=== PATIENT | female | born 1980 | race Caucasian/White ===

== ENCOUNTER 2016-12-30 21:13 | Emergency (ER) | payer OTHER ==
[~2016-12-30] VITALS: Ht 165.1 cm; Wt 126.1 kg
[~2016-12-30 21:13] MED LIST: HYDR-971 PO; METF500T4 PO; PRED50TA PO; VALA10005 PO
[2016-12-30 21:20] VITALS: BP 174/91
[2016-12-30 22:07] LABS: OBC FLU VALID
[2016-12-30] MEDS ORDERED: PENICILLIN G BENZATHINE LA 1,200,000 UNIT/2 ML DISP.SYRIN. IM ONE (22:45)
--- NOTE | 2016-12-30 23:17 | PHYS DOC ---
Past Medical History Past Medical History: Hypertension, Other Additional Past Medical Histor: SHINGLES Past Surgical History: Cholecystectomy, Hysterectomy, Tonsillectomy Additional Past Surgical Histo: BLADDER SLING ,EAR SX Smokin Pack Per Day Alcohol Use: None Drug Use: None Adult General Chief Complaint Chief Complaint: Congestion HPI HPI Patient is a 36 year old female who presents with fever and chills starting yesterday. She reports temperature up to 100F. She's had nasal congestion, sore throat, mild cough, shortness breath, and headache. She denies vomiting or diarrhea. She did not receive a flu shot this season. Her daughter was recently diagnosed with strep throat. She has not taken any medicine for fever today. She sees a PCP at [facility]. Review of Systems Review of Systems Constitutional: Fever and chills. Eyes: Denies change in visual acuity, redness, or eye pain. [] HENT: Denies ear pain. Reports sore throat and nasal congestion. Respiratory: Reports mild cough and shortness of breath. Cardiovascular: Denies chest pain, palpitations or edema. [] GI: Denies abdominal pain, nausea, vomiting, bloody stools or diarrhea. [] : Denies dysuria, hematuria or urinary frequency. [] Musculoskeletal: Denies back pain or joint pain. [] Integument: Denies rash or skin lesions. [] Neurologic: Denies focal weakness or sensory changes. Reports frontal headache. Endocrine: Denies polyuria or polydipsia. [] Psych: Denies anxiety or depression. [] All systems reviewed and negative unless otherwise stated in the HPI. Current Medications Current Medications Current Medications Medications (Trade) Dose Ordered Sig/Marilyn Start Time Stop Time Status Last Admin Dose Admin Penicillin G Benzathine (Bicillin L-A) 1,200,000 unit 1X ONCE 12/30/16 22:45 12/30/16 22:46 DC 12/30/16 23:08 1,200,000 UNIT Allergies Allergies Allergies Coded Allergies Type Severity Reaction Last Updated Verified Sulfa (Sulfonamide Antibiotics) Allergy Unknown hives 06/14/14 No Physical Exam Physical Exam Constitutional: Well developed, well nourished, no acute distress, non-toxic appearance. [] HENT: Normocephalic, atraumatic, bilateral external ears normal, oropharynx moist, no oral exudates, nose normal. Bilateral TMs without erythema or bulging. There is mild posterior pharyngeal erythema with tonsillar edema bilaterally. There is no peritonsillar abscess or uvular deviation. Bilateral nasal turbinates are swollen and erythematous with purulent drainage. Eyes: PERRLA, EOMI, conjunctiva normal, no discharge. [] Neck: Normal range of motion, no tenderness, supple, no stridor. No nuchal rigidity or meningeal signs. Cardiovascular: Heart rate regular rhythm, no murmur [] Lungs & Thorax: Bilateral breath sounds clear to auscultation without wheezes, rales, or rhonchi. Skin: Warm, dry, no erythema, no rash. [] Neurologic: Alert and oriented X 3, normal motor function, normal sensory function, no focal deficits noted. [] Psychologic: Affect normal, judgement normal, mood normal. [] Current Patient Data Vital Signs Vital Signs Date Time Temp Pulse Resp B/P Pulse Ox O2 Delivery O2 Flow Rate FiO2 12/30/16 21:20 98.3 125 20 94 Room Air 98.3 Lab Values Laboratory Tests Test 12/30/16 21:28 Influenza Type A Antigen Negative (NEGATIVE) Influenza Type B Antigen Negative (NEGATIVE) EKG EKG [] Radiology/Procedures Radiology/Procedures [] Course & Med Decision Making Course & Med Decision Making Pertinent Labs and Imaging studies reviewed. (See chart for details) Patient was treated with IM Bicillin LA due to strep exposure from her daughter with similar symptoms. Dragon Disclaimer Dragon Disclaimer This electronic medical record was generated, in whole or in part, using a voice recognition dictation system. Departure Departure Impression: Primary Impression: Pharyngitis Disposition: 01 HOME, SELF-CARE Condition: STABLE Referrals: UNKNOWN PCP NAME (PCP) Patient Instructions: Viral and Bacterial Pharyngitis, [id number] Additional Instructions: Your flu test was negative. Your treated with a shot of antibiotics to treat strep throat due to your positive exposure. Please continue to take Tylenol and ibuprofen for fever or pain control. Use according to package instructions. Please be sure you're drinking plenty of water to stay hydrated and getting lots of rest. Please follow-up with your primary care doctor within the next week. Return to emergency department if you have high fever not responding to medication, difficulty breathing or swallowing, or other new or concerning symptoms. Problem Qualifiers Primary Impression: Pharyngitis Pharyngitis/tonsillitis etiology: unspecified etiology Qualified Code: J02.9 - Acute pharyngitis, unspecified MOHAN JORDAN Dec 30, 2016 23:17
[2016-12-31 06:52] LABS: NEGATIVE OBC STREP NEG; POSITIVE OBC STREP POS
== END 2016-12-30 23:25 | disposition home or self-care (01) ==
LOC: ER 21:13
DX: J02.9 Acute pharyngitis, unspecified (principal); I10 Essential (primary) hypertension; F17.210 Nicotine dependence, cigarettes, uncomplicated; Z90.89 Acquired absence of other organs; Z88.2 Allergy status to sulfonamides
CPT/HCPCS: 87070; 87804; 87880; 96372; 99284; J0561

== ENCOUNTER 2017-04-19 01:39 | Emergency (ER) | payer OTHER ==
[~2017-04-19] VITALS: Ht 167.6 cm; Wt 126.1 kg
[2017-04-19 02:17] VITALS: BP 149/89
[2017-04-19] MEDS ORDERED: TRAM-48 PO (02:53)
[2017-04-19] MEDS ORDERED: IBUP-1007 PO (02:53)
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
[2017-04-19] MEDS ORDERED: traMADol 50 MG TABLET PO ONE (03:00)
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
== END 2017-04-19 03:05 | disposition home or self-care (01) ==
LOC: ER 01:39
DX: S43.401A Unspecified sprain of right shoulder joint, initial encounter (principal); I10 Essential (primary) hypertension; Z90.49 Acquired absence of other specified parts of digestive tract; Z90.710 Acquired absence of both cervix and uterus; Z88.2 Allergy status to sulfonamides; Y08.89XA Assault by other specified means, initial encounter; Y93.89 Activity, other specified; Y92.89 Other specified places as the place of occurrence of the external cause; Y99.8 Other external cause status
CPT/HCPCS: 73030; 99284

== ENCOUNTER 2018-11-16 20:34 | Emergency (ER) | payer OTHER ==
[~2018-11-16] VITALS: Ht 165.1 cm; Wt 104.3 kg
[~2018-11-16 20:34] MED LIST changes: +HYDR-3164 PO; -HYDR-971 PO; +IBUP-1007 PO; +METF500T16 PO; -METF500T4 PO; +MULT1TAB52 PO; +Pantoprazole PO; +SUCR1ORA5 PO; +TRAM-48 PO
[2018-11-16] MEDS ORDERED: ONDANSETRON PF 4 MG/2 ML VIAL. IV ONE (21:00)
[2018-11-16] MEDS ORDERED: MORPHINE SULFATE 4 MG/ML VIAL. IV ONE ×2 (21:00→22:45)
[2018-11-16 21:15] LABS: BASO # 0.1 x10^3/uL (0.0-0.2); BASO % 1 % (0-3); EOS # 0.6 x10^3/uL (0.0-0.7); EOS % 7 % (0-3); HEMOGLOBIN 15.7 g/dL (12.0-15.5); LYMPH % 34 % (24-48); MEAN CORPUSCULAR HEMOGLOBIN 30 pg (25-35); MEAN CORPUSCULAR HGB CONC 34 g/dL (31-37); MEAN CORPUSCULAR VOLUME 89 fL (79-100); MONO # 0.7 x10^3/uL (0.0-1.1); MONO % 7 % (0-9); NEUT # 4.6 x10^3uL (1.8-7.7); NEUT % 51 % (31-73); PLATELET COUNT 183 x10^3/uL (140-400); RED CELL DISTRIBUTION WIDTH 13.9 % (11.5-14.5)
[2018-11-16 21:24] LABS: CALCIUM 10.8 mg/dL (8.5-10.1); CREATININE 0.7 mg/dL (0.6-1.0); GFR 94.2; POTASSIUM 4.2 mmol/L (3.5-5.1)
[2018-11-16 21:27] LABS: PROTHROMBIN TIME PATIENT 13.4 SEC (11.7-14.0)
[2018-11-16 21:29] LABS: ALBUMIN 3.5 g/dL (3.4-5.0); DIRECT BILIRUBIN 0.1 mg/dL (0.0-0.2); TOTAL BILIRUBIN 0.5 mg/dL (0.2-1.0); TOTAL PROTEIN 7.6 g/dL (6.4-8.2)
[2018-11-16 21:33] LABS: BILIRUBIN,URINE SMALL (NEG); CLARITY,URINE CLOUDY; COLOR,URINE YELLOW; NITRITE,URINE NEGATIVE (NEG); PH,URINE 5.5; PROTEIN,URINE NEGATIVE (NEG-TRACE)
[2018-11-16] MEDS ORDERED: CONTRAST GIVEN. MC PRN (21:45)
[2018-11-16] MEDS ORDERED: IOHEXOL 300 MG/ML 100ML VIAL. IV ONE (21:45)
[2018-11-16 21:50] LABS: FECAL OB PT NEGATIVE (NEG)
[2018-11-16 21:51] LABS: BACTERIA,URINE MANY /HPF (0-FEW); RBC,URINE 0 /HPF (0-2); SQUAMOUS EPITHELIAL CELL,UR MANY /LPF
--- NOTE | 2018-11-16 22:00 | PHYS DOC ---
Past Medical History Past Medical History: Other Additional Past Medical Histor: OBESITY Past Surgical History: Cholecystectomy, Gastric Bypass, Hysterectomy, Other Additional Past Surgical Histo: RIGHT ROTATOR CUFF, EAR Alcohol Use: None Drug Use: None Adult General Chief Complaint Chief Complaint: RECTAL BLEED HPI HPI Patient is a 38 year old female who presents with abdominal pain. Patient states she has been sick for the last 3 days. She had onset of generalized abdominal pain along with some diarrhea and vomiting. She states she also noticed some red blood in her diarrhea. She has been unable to keep down any food or fluids over the last 3 days. Pain is diffuse across the abdomen. Pain is not severe. She denies fever. Denies urinary symptoms. Denies vaginal symptoms. The patient had previously been admitted to this hospital for what she describes to be bleeding ulcers. She denies any follow-up after that visit. She states it was last year. Patient is s/p gastric bypass surgery. Review of Systems Review of Systems Constitutional: Denies fever or chills Eyes: Denies change in visual acuity HENT: Denies nasal congestion Respiratory: Denies cough or shortness of breath Cardiovascular: No additional information not addressed in HPI GI: as documented above : Denies dysuria or hematuria Musculoskeletal: Denies back pain Integument: Denies rash or skin lesions Neurologic: Denies headache Endocrine: Denies polyuria All other systems were reviewed and found to be within normal limits, except as documented in this note. Current Medications Current Medications Current Medications Medications (Trade) Dose Ordered Sig/Marilyn Start Time Stop Time Status Last Admin Dose Admin Info (CONTRAST GIVEN -- Rx MONITORING) 1 each PRN DAILY PRN 11/16/18 21:45 11/18/18 21:44 Iohexol (Omnipaque 300 Mg/ml) 75 ml 1X ONCE 11/16/18 21:45 11/16/18 21:46 DC 11/16/18 22:02 75 ML Morphine Sulfate (Morphine Sulfate) 8 mg 1X ONCE 11/16/18 22:45 11/16/18 22:46 DC Ondansetron HCl (Zofran) 4 mg 1X ONCE 11/16/18 21:00 11/16/18 21:01 DC 11/16/18 21:16 4 MG Sodium Chloride 1,000 ml @ 1,000 mls/hr 1X ONCE 11/16/18 22:15 11/16/18 23:14 11/16/18 22:20 1,000 MLS/HR Allergies Allergies Allergies Coded Allergies Type Severity Reaction Last Updated Verified Sulfa (Sulfonamide Antibiotics) Allergy Intermediate hives 05/11/18 No Physical Exam Physical Exam Constitutional: Well developed, well nourished, no acute distress, non-toxic appearance HENT: Normocephalic, atraumatic, bilateral external ears normal, oropharynx moist Eyes: PERRLA, EOMI Neck: Normal range of motion Cardiovascular:Heart rate regular rhythm, no murmur Lungs & Thorax: Bilateral breath sounds clear to auscultation Abdomen: Bowel sounds normal, soft, mild diffuse TTP but no guarding or rebound Skin: Warm, dry, no erythema, no rash Back: No tenderness Extremities: trace edema bilateral LE's Neurologic: Alert and oriented X 3 Psychologic: Affect normal Current Patient Data Vital Signs Vital Signs Date Time Temp Pulse Resp B/P (MAP) Pulse Ox O2 Delivery O2 Flow Rate FiO2 11/16/18 21:17 16 99 Room Air 11/16/18 20:58 98.6 88 130/81 (97) 98.6 Lab Values Laboratory Tests Test 11/16/18 21:00 11/16/18 21:21 11/16/18 21:38 White Blood Count 9.0 x10^3/uL (4.0-11.0) Red Blood Count 5.20 x10^6/uL (3.50-5.40) Hemoglobin 15.7 g/dL (12.0-15.5) H Hematocrit 46.0 % (36.0-47.0) Mean Corpuscular Volume 89 fL (79-100) Mean Corpuscular Hemoglobin 30 pg (25-35) Mean Corpuscular Hemoglobin Concent 34 g/dL (31-37) Red Cell Distribution Width 13.9 % (11.5-14.5) Platelet Count 183 x10^3/uL (140-400) Neutrophils (%) (Auto) 51 % (31-73) Lymphocytes (%) (Auto) 34 % (24-48) Monocytes (%) (Auto) 7 % (0-9) Eosinophils (%) (Auto) 7 % (0-3) H Basophils (%) (Auto) 1 % (0-3) Neutrophils # (Auto) 4.6 x10^3uL (1.8-7.7) Lymphocytes # (Auto) 3.0 x10^3/uL (1.0-4.8) Monocytes # (Auto) 0.7 x10^3/uL (0.0-1.1) Eosinophils # (Auto) 0.6 x10^3/uL (0.0-0.7) Basophils # (Auto) 0.1 x10^3/uL (0.0-0.2) Prothrombin Time 13.4 SEC (11.7-14.0) Prothrombin Time INR 1.1 (0.8-1.1) PTT 34 SEC (24-38) Sodium Level 141 mmol/L (136-145) Potassium Level 4.2 mmol/L (3.5-5.1) Chloride Level 104 mmol/L (98-107) Carbon Dioxide Level 29 mmol/L (21-32) Anion Gap 8 (6-14) Blood Urea Nitrogen 14 mg/dL (7-20) Creatinine 0.7 mg/dL (0.6-1.0) Estimated GFR (Cockcroft-Gault) 94.2 Glucose Level 84 mg/dL (70-99) Calcium Level 10.8 mg/dL (8.5-10.1) H Total Bilirubin 0.5 mg/dL (0.2-1.0) Direct Bilirubin 0.1 mg/dL (0.0-0.2) Aspartate Amino Transferase (AST) 15 U/L (15-37) Alanine Aminotransferase (ALT) 16 U/L (14-59) Alkaline Phosphatase 118 U/L (46-116) H Total Protein 7.6 g/dL (6.4-8.2) Albumin 3.5 g/dL (3.4-5.0) Lipase 72 U/L (73-393) L Urine Collection Type Unknown Urine Color Yellow Urine Clarity Cloudy Urine pH 5.5 Urine Specific Majestic >=1.030 Urine Protein Negative mg/dL (NEG-TRACE) Urine Glucose (UA) Negative mg/dL (NEG) Urine Ketones (Stick) Negative mg/dL (NEG) Urine Blood Negative (NEG) Urine Nitrite Negative (NEG) Urine Bilirubin Small (NEG) Urine Urobilinogen Dipstick 1.0 mg/dL (0.2 mg/dL) Urine Leukocyte Esterase Negative (NEG) Urine RBC 0 /HPF (0-2) Urine WBC 1-4 /HPF (0-4) Urine Squamous Epithelial Cells Many /LPF Urine Bacteria Many /HPF (0-FEW) Urine Mucus Marked /LPF Stool Occult Blood Negative (NEG) Laboratory Tests 11/16/18 21:00 Laboratory Tests 11/16/18 21:00 EKG EKG [] Radiology/Procedures Radiology/Procedures FINDINGS: Lower thorax: Right lung base pulmonary nodule is identified. Measures 15 mm, appears grossly similar to the previous exam. Liver: Unremarkable Spleen: Unremarkable Pancreas: Unremarkable Adrenals: No evidence of mass. Kidneys: No focal lesion. Symmetric enhancement. Urinary tracts: Tiny nonobstructive right lower pole renal calculus similar to prior. Gallbladder: Surgically absent. Lymph nodes: No significant enlargement Vessels: Aorta is nonaneurysmal. GI tract: Postsurgical changes at the stomach. No bowel obstruction. No evidence of acute colitis. Appendix is normal. Reproductive organs:No evidence of mass. Urinary bladder: Not adequately distended for evaluation. Peritoneum: No evidence of pneumoperitoneum. No free fluid. Abdominal wall: Fat-containing left anterior abdominal wall hernia is again seen. Stranding of the fat is also again seen. Spine: Vertebral body height and alignment are intact. Bones: No destructive process identified. External Soft Tissue: No acute findings. IMPRESSION: 1. Right lung base pulmonary nodule is stable. 2. Fat-containing left anterior abdominal wall hernia is stable. 3. No acute findings are identified in the abdomen and pelvis. Course & Med Decision Making Course & Med Decision Making Pertinent Labs and Imaging studies reviewed. (See chart for details) Patient is evaluated immediately on arrival to her room. She has physical exam and complaints documented above. She is status post gastric bypass surgery. Standard abdominal pain workup is ordered including CT scan and labs and urinalysis. Medications ordered for pain and nausea. 22:45: Patient evaluated for vomiting and diarrhea. She does report bloody diarrhea but her fecal occult blood test is negative. Her vital signs are normal. She did receive 2 doses of morphine in the emergency department for pain control. Her hemoglobin was mildly elevated. The patient was given 1 L of normal saline. Plan is for discharge home and the patient is agreeable. She is provided pain medication to use at home as well as medications for nausea. Patient is accompanied by her significant other who is driving her home this evening. She is advised to follow-up with her primary care doctor. Otherwise, return to the ER for any new or worsening symptoms. Her CT scan did not reveal any acute findings. Her lab panel also was free from acute or emergent findings. Lai Disclaimer Lai Disclaimer This electronic medical record was generated, in whole or in part, using a voice recognition dictation system. Departure Departure Disposition: HOME, SELF-CARE Condition: GOOD Referrals: UNKNOWN PCP NAME (PCP) Scripts Ondansetron (ONDANSETRON ODT) 4 Mg Tab.rapdis 4 MG PO BID PRN for NAUSEA/VOMITING, #10 TAB Prov: JENNIFER TRUJILLO DO 11/16/18 Hydrocodone/Apap 5-325 (NORCO 5-325 TABLET) 1 Each Tablet 1-2 EACH PO PRN Q6HRS PRN for SEVERE PAIN, #15 as needed for pain Prov: JENNIFER TRUJILLO DO 11/16/18 JENNIFER TRUJILLO DO Nov 16, 2018 22:00
[2018-11-16] MEDS ORDERED: IV NORMAL SALINE 1000ML BAG 1,000 ML IV ONE (22:15)
--- NOTE | 2018-11-16 22:18 | RAD ---
CT ABD PELV W/ IV CONTRST ONLY Indication: s/p gastric bypass;abd pain, gi bleeding, rectal bleed x 3 days; Omni 300, 75ml Exposure: One or more of the following individualized dose reduction techniques were utilized for this examination: 1. Automated exposure control 2. Adjustment of the mA and/or kV according to patient size 3. Use of iterative reconstruction technique. Comparison: May 10, 2018 Contrast: Intravenous contrast was given. No oral contrast per request. FINDINGS: Lower thorax: Right lung base pulmonary nodule is identified. Measures 15 mm, appears grossly similar to the previous exam. Liver: Unremarkable Spleen: Unremarkable Pancreas: Unremarkable Adrenals: No evidence of mass. Kidneys: No focal lesion. Symmetric enhancement. Urinary tracts: Tiny nonobstructive right lower pole renal calculus similar to prior. Gallbladder: Surgically absent. Lymph nodes: No significant enlargement Vessels: Aorta is nonaneurysmal. GI tract: Postsurgical changes at the stomach. No bowel obstruction. No evidence of acute colitis. Appendix is normal. Reproductive organs:No evidence of mass. Urinary bladder: Not adequately distended for evaluation. Peritoneum: No evidence of pneumoperitoneum. No free fluid. Abdominal wall: Fat-containing left anterior abdominal wall hernia is again seen. Stranding of the fat is also again seen. Spine: Vertebral body height and alignment are intact. Bones: No destructive process identified. External Soft Tissue: No acute findings. IMPRESSION: 1. Right lung base pulmonary nodule is stable. 2. Fat-containing left anterior abdominal wall hernia is stable. 3. No acute findings are identified in the abdomen and pelvis. Electronically signed by: Dorian Crockett MD (11/16/2018 10:14 PM) [id number]
[2018-11-16] MEDS ORDERED: ONDA4TAB12 PO (22:54)
[2018-11-16] MEDS ORDERED: HYDR-3164 PO (22:54)
[2018-11-16 23:14] VITALS: BP 112/63
== END 2018-11-16 23:25 | disposition home or self-care (01) ==
LOC: ER 20:34
DX: K43.9 Ventral hernia without obstruction or gangrene (principal); R19.7 Diarrhea, unspecified; R11.10 Vomiting, unspecified; Z90.49 Acquired absence of other specified parts of digestive tract; Z90.710 Acquired absence of both cervix and uterus; Z98.84 Bariatric surgery status; E66.9 Obesity, unspecified; Z68.38 Body mass index [BMI] 38.0-38.9, adult; Z88.2 Allergy status to sulfonamides
CPT/HCPCS: 36415; 74177; 80048; 80076; 81001; 82274; 83690; 85025; 85610; 85730; 96361; 96374; 96375; 96376; 99284; J2270; J2405; J7030; Q9967

== ENCOUNTER 2018-11-24 17:59 | Emergency (ER) | payer OTHER ==
[~2018-11-24] VITALS: Ht 165.1 cm; Wt 107.5 kg
[~2018-11-24 17:59] MED LIST changes: +ONDA4TAB12 PO
[2018-11-24] MEDS ORDERED: ONDANSETRON PF 4 MG/2 ML VIAL. IV ONE (18:30)
[2018-11-24] MEDS ORDERED: IV NORMAL SALINE 1000ML BAG 1,000 ML IV ONE (18:30)
[2018-11-24] MEDS ORDERED: MORPHINE SULFATE 4 MG/ML VIAL. IV ONE (18:30)
[2018-11-24 18:39] LABS: BILIRUBIN,URINE NEGATIVE (NEG); CLARITY,URINE CLEAR; COLOR,URINE YELLOW; NITRITE,URINE NEGATIVE (NEG); PROTEIN,URINE NEGATIVE (NEG-TRACE)
[2018-11-24 18:43] LABS: BASO # 0.1 x10^3/uL (0.0-0.2); BASO % 1 % (0-3); EOS # 0.6 x10^3/uL (0.0-0.7); EOS % 6 % (0-3); HEMATOCRIT 47.1 % (36.0-47.0); HEMOGLOBIN 15.1 g/dL (12.0-15.5); LYMPH # 2.8 x10^3/uL (1.0-4.8); LYMPH % 32 % (24-48); MEAN CORPUSCULAR HEMOGLOBIN 28 pg (25-35); MEAN CORPUSCULAR HGB CONC 32 g/dL (31-37); MEAN CORPUSCULAR VOLUME 89 fL (79-100); MONO # 0.6 x10^3/uL (0.0-1.1); MONO % 6 % (0-9); NEUT # 4.8 x10^3uL (1.8-7.7); NEUT % 54 % (31-73); PLATELET COUNT 169 x10^3/uL (140-400); RED BLOOD COUNT 5.32 x10^6/uL (3.50-5.40); RED CELL DISTRIBUTION WIDTH 14.1 % (11.5-14.5); WHITE BLOOD COUNT 8.9 x10^3/uL (4.0-11.0)
[2018-11-24 18:45] LABS: BACTERIA,URINE 0 /HPF (0-FEW); RBC,URINE 0 /HPF (0-2); SQUAMOUS EPITHELIAL CELL,UR FEW /LPF; WBC,URINE 0 /HPF (0-4)
[2018-11-24] MEDS ORDERED: IOHEXOL 300 MG/ML 100ML VIAL. IV ONE (18:45)
[2018-11-24] MEDS ORDERED: CONTRAST GIVEN. MC PRN (18:45)
[2018-11-24 18:51] LABS: CALCIUM 9.9 mg/dL (8.5-10.1); CREATININE 0.7 mg/dL (0.6-1.0); GFR 94.2; POTASSIUM 4.6 mmol/L (3.5-5.1)
[2018-11-24 18:57] LABS: ALBUMIN 3.6 g/dL (3.4-5.0); ALBUMIN/GLOBULIN RATIO 1.1 (1.0-1.7); TOTAL BILIRUBIN 0.4 mg/dL (0.2-1.0); TOTAL PROTEIN 6.8 g/dL (6.4-8.2)
--- NOTE | 2018-11-24 20:05 | PHYS DOC ---
Past Medical History Past Medical History: Other Additional Past Medical Histor: OBESITY Past Surgical History: Cholecystectomy, Gastric Bypass, Hysterectomy, Other Additional Past Surgical Histo: RIGHT ROTATOR CUFF, EAR Alcohol Use: None Drug Use: None Adult General Chief Complaint Chief Complaint: NAUSEA/VOMITING/DIARRHA HPI HPI Patient is a 38 year old female who presents to the emergency room with complaints of nausea, vomiting, diarrhea, and left-sided abdominal pain for the last 2 weeks. Patient states she was seen here week and half ago and diagnosed with gastritis. Patient states in the last 24-hour she has 3 episodes of vomiting and 2 episodes of diarrhea. She states that she has been unable to keep any food or fluids down for over 2 weeks. Patient states now when she vomits there is bright red blood in the vomit. She reports a history of bleeding ulcers. Patient denies any blood in her diarrhea since she was last seen. Her last bowel movement was approximately one month ago. Today she feels short of breath and dizzy with position changes. She denies any irregular vaginal discharge, dysuria, vaginal bleeding, or increased urinary frequency. Patient states she had a gastric bypass 1 year ago and she is unable to see the surgeon who performed the procedure because he no longer accepts her insurance. Currently she reports her pain as 8 out of 10 on the pain scale, nothing relieves or provokes her pain. Review of Systems Review of Systems Constitutional: Denies fever or chills [] Eyes: Denies redness, or eye pain [] HENT: Denies nasal congestion or sore throat [] Respiratory: Denies cough; see HPI Cardiovascular: No additional information not addressed in HPI [] GI: See HPI : Denies dysuria or hematuria [] Musculoskeletal: Denies back pain Integument: Denies rash or skin lesions [] Neurologic: Denies headache, focal weakness or sensory changes [] Current Medications Current Medications Current Medications Medications (Trade) Dose Ordered Sig/Marilyn Start Time Stop Time Status Last Admin Dose Admin Info (CONTRAST GIVEN -- Rx MONITORING) 1 each PRN DAILY PRN 11/24/18 18:45 11/24/18 21:41 DC Iohexol (Omnipaque 300 Mg/ml) 100 ml STK-MED ONCE 11/24/18 23:01 11/24/18 23:03 DC Morphine Sulfate (Morphine Sulfate) 10 mg 1X ONCE 11/24/18 21:15 11/24/18 21:16 DC 11/24/18 21:08 10 MG Ondansetron HCl (Zofran) 4 mg 1X ONCE 11/24/18 18:30 11/24/18 18:31 DC 11/24/18 18:48 4 MG Sodium Chloride 1,000 ml @ 1,000 mls/hr 1X ONCE 11/24/18 18:30 11/24/18 19:29 DC 11/24/18 18:47 1,000 MLS/HR Allergies Allergies Allergies Coded Allergies Type Severity Reaction Last Updated Verified Sulfa (Sulfonamide Antibiotics) Allergy Intermediate hives 05/11/18 No Physical Exam Physical Exam Constitutional: Well developed, well nourished, no acute distress, non-toxic appearance. [] HENT: Normocephalic, atraumatic, bilateral external ears normal, oropharynx moist, dry lips noted, nose normal. [] Eyes: conjunctiva normal, no discharge. [] Neck: Normal range of motion Cardiovascular:Heart rate regular rhythm, no murmur [] Lungs & Thorax: Bilateral breath sounds clear to auscultation [] Abdomen: Bowel sounds normal, soft, no masses, no pulsatile masses, mild diffuse tenderness to palpation without guarding or rebound . [] Skin: Warm, dry, no erythema, no rash. [] Extremities: No tenderness, no cyanosis, no clubbing, ROM intact, no edema. [] Neurologic: Alert and oriented X 3, normal motor function, normal sensory function, no focal deficits noted. [] Psychologic: Affect normal, judgement normal, mood normal. [] Current Patient Data Vital Signs Vital Signs Date Time Temp Pulse Resp B/P (MAP) Pulse Ox O2 Delivery O2 Flow Rate FiO2 11/24/18 20:52 64 16 127/77 (94) 98 Room Air 11/24/18 18:07 97.9 97.9 Lab Values Laboratory Tests Test 11/24/18 18:07 11/24/18 18:30 Urine Collection Type Unknown Urine Color Yellow Urine Clarity Clear Urine pH 8.0 Urine Specific [place] 1.015 Urine Protein Negative mg/dL (NEG-TRACE) Urine Glucose (UA) Negative mg/dL (NEG) Urine Ketones (Stick) Negative mg/dL (NEG) Urine Blood Negative (NEG) Urine Nitrite Negative (NEG) Urine Bilirubin Negative (NEG) Urine Urobilinogen Dipstick 1.0 mg/dL (0.2 mg/dL) Urine Leukocyte Esterase Negative (NEG) Urine RBC 0 /HPF (0-2) Urine WBC 0 /HPF (0-4) Urine Squamous Epithelial Cells Few /LPF Urine Bacteria 0 /HPF (0-FEW) White Blood Count 8.9 x10^3/uL (4.0-11.0) Red Blood Count 5.32 x10^6/uL (3.50-5.40) Hemoglobin 15.1 g/dL (12.0-15.5) Hematocrit 47.1 % (36.0-47.0) H Mean Corpuscular Volume 89 fL (79-100) Mean Corpuscular Hemoglobin 28 pg (25-35) Mean Corpuscular Hemoglobin Concent 32 g/dL (31-37) Red Cell Distribution Width 14.1 % (11.5-14.5) Platelet Count 169 x10^3/uL (140-400) Neutrophils (%) (Auto) 54 % (31-73) Lymphocytes (%) (Auto) 32 % (24-48) Monocytes (%) (Auto) 6 % (0-9) Eosinophils (%) (Auto) 6 % (0-3) H Basophils (%) (Auto) 1 % (0-3) Neutrophils # (Auto) 4.8 x10^3uL (1.8-7.7) Lymphocytes # (Auto) 2.8 x10^3/uL (1.0-4.8) Monocytes # (Auto) 0.6 x10^3/uL (0.0-1.1) Eosinophils # (Auto) 0.6 x10^3/uL (0.0-0.7) Basophils # (Auto) 0.1 x10^3/uL (0.0-0.2) Sodium Level 143 mmol/L (136-145) Potassium Level 4.6 mmol/L (3.5-5.1) Chloride Level 104 mmol/L (98-107) Carbon Dioxide Level 29 mmol/L (21-32) Anion Gap 10 (6-14) Blood Urea Nitrogen 14 mg/dL (7-20) Creatinine 0.7 mg/dL (0.6-1.0) Estimated GFR (Cockcroft-Gault) 94.2 BUN/Creatinine Ratio 20 (6-20) Glucose Level 74 mg/dL (70-99) Calcium Level 9.9 mg/dL (8.5-10.1) Total Bilirubin 0.4 mg/dL (0.2-1.0) Aspartate Amino Transferase (AST) 13 U/L (15-37) L Alanine Aminotransferase (ALT) 15 U/L (14-59) Alkaline Phosphatase 110 U/L (46-116) Total Protein 6.8 g/dL (6.4-8.2) Albumin 3.6 g/dL (3.4-5.0) Albumin/Globulin Ratio 1.1 (1.0-1.7) Lipase 88 U/L (73-393) Laboratory Tests 11/24/18 18:30 Laboratory Tests 11/24/18 18:30 EKG EKG [] Radiology/Procedures Radiology/Procedures PROCEDURE: CT ABD PELV W/ IV CONTRST ONLY Examination: CT ABD PELV W/ IV CONTRST ONLY History: ABD PAIN;N/V/D X 2 WEEKS;HX GASTRIC BYPASS;BLOODY EMESIS; OMNI 300, 75ML Comparison/Correlation: 11/16/2018 CT abdomen and pelvis with IV contrast Findings: Axial images of the abdomen and pelvis were obtained following IV contrast. Sagittal and coronal reformatted images provided. Right basilar juxtadiaphragmatic ill-defined nodular infiltrate measuring up to 1.5 cm diameter has remained stable compared to prior exams including CT abdomen and pelvis without contrast 09/03/2015. Liver is overall unremarkable. No suspicious focal finding. Cholecystectomy evident. Spleen is normal. Pancreas is unremarkable. Adrenal glands are normal. Kidneys are unremarkable. Moderate quantity of stool in the colon. No bowel obstruction. Mild diverticulosis of the colon is questioned. Uterus is not identified. Postoperative findings gastric bypass noted. Suture material is present involving the left upper quadrant small bowel. No extraluminal gas. Left lower abdominal paramedian midline ventral hernia defect measuring 1.3 cm transverse is present containing omental fat. High density of the omental fat is noted but mild. Appendix is normal. Urinary bladder is unremarkable. Impression: Left lower quadrant abdominal wall hernia defect containing omental fat. Omental fat is of somewhat high density and this may represent underlying ischemia or inflammation. No bowel obstruction. [] Course & Med Decision Making Course & Med Decision Making Pertinent Labs and Imaging studies reviewed. (See chart for details) DX: Nonspecific left abdominal pain Pt asymptomatic with orthostatic BPs, labs are unremarkable, CT negative for any acute findings. Recommend follow up with Dr. Beaver for further evaluation and treatment, return to ER if symptoms worsen. Increase clear fluids recommend bland foods. RX for hydrocodone 5/325 mg tabs #10 Discussed patient and findings with Dr. Mccormick prior to discharge instructions being written. [] Dragon Disclaimer Dragon Disclaimer This electronic medical record was generated, in whole or in part, using a voice recognition dictation system. Departure Departure Impression: Primary Impression: Abdominal pain Disposition: HOME, SELF-CARE Condition: STABLE Referrals: UNKNOWN PCP NAME (PCP) THEODORA BEAVER MD Patient Instructions: Abdominal Pain (Nonspecific) Additional Instructions: Fill prescriptions and use them as directed. Recommend clear fluids for the next 24 hours. Then you may advance to bland foods such as bananas, rice, applesauce, and dry toast. Follow-up with your primary care doctor as planned and gastroenterology. Return to the emergency room if your symptoms worsen. Scripts Hydrocodone Bit/Acetaminophen (HYDROCODONE-APAP 5-325 ) 1 Tab Tablet 1 TAB PO PRN Q6HRS PRN for PAIN for 3 Days, #12 TAB 0 Refills Prov: SABA BARRERA MINING SPECULATOR 11/24/18 Problem Qualifiers Primary Impression: Abdominal pain Abdominal location: generalized Qualified Codes: R10.84 - Generalized abdominal pain SABA BARRERA MINING SPECULATOR Nov 24, 2018 20:04
--- NOTE | 2018-11-24 20:25 | RAD ---
Examination: CT ABD PELV W/ IV CONTRST ONLY History: ABD PAIN;N/V/D X 2 WEEKS;HX GASTRIC BYPASS;BLOODY EMESIS; OMNI 300, 75ML Comparison/Correlation: 11/16/2018 CT abdomen and pelvis with IV contrast Findings: Axial images of the abdomen and pelvis were obtained following IV contrast. Sagittal and coronal reformatted images provided. Right basilar juxtadiaphragmatic ill-defined nodular infiltrate measuring up to 1.5 cm diameter has remained stable compared to prior exams including CT abdomen and pelvis without contrast 09/03/2015. Liver is overall unremarkable. No suspicious focal finding. Cholecystectomy evident. Spleen is normal. Pancreas is unremarkable. Adrenal glands are normal. Kidneys are unremarkable. Moderate quantity of stool in the colon. No bowel obstruction. Mild diverticulosis of the colon is questioned. Uterus is not identified. Postoperative findings gastric bypass noted. Suture material is present involving the left upper quadrant small bowel. No extraluminal gas. Left lower abdominal paramedian midline ventral hernia defect measuring 1.3 cm transverse is present containing omental fat. High density of the omental fat is noted but mild. Appendix is normal. Urinary bladder is unremarkable. Impression: Left lower quadrant abdominal wall hernia defect containing omental fat. Omental fat is of somewhat high density and this may represent underlying ischemia or inflammation. No bowel obstruction. Electronically signed by: Wiley Najera MD (11/24/2018 8:20 PM) [facility]
[2018-11-24 20:52] VITALS: BP 127/77
[2018-11-24] MEDS ORDERED: MORPHINE SULFATE 4 MG/ML VIAL. IM ONE (21:00)
[2018-11-24] MEDS ORDERED: MORPHINE SULFATE 10 MG/ML VIAL. IM ONE (21:15)
[2018-11-24] MEDS ORDERED: HYDR-2761 PO (21:33)
[2018-11-24] MEDS ORDERED: IOHEXOL 300 MG/ML 100ML VIAL. ONE (23:01)
== END 2018-11-24 21:35 | disposition home or self-care (01) ==
LOC: ER 17:59
DX: R10.84 Generalized abdominal pain (principal); R11.2 Nausea with vomiting, unspecified; R19.7 Diarrhea, unspecified; R42 Dizziness and giddiness; Z98.84 Bariatric surgery status; Z90.49 Acquired absence of other specified parts of digestive tract; Z90.710 Acquired absence of both cervix and uterus; Z88.2 Allergy status to sulfonamides
CPT/HCPCS: 36415; 74177; 80053; 81001; 83690; 85025; 96372; 96374; 96375; 99284; J2270; J2405; J7030; Q9967

== ENCOUNTER 2019-02-22 17:56 | Emergency (ER) | payer OTHER ==
[~2019-02-22] VITALS: Ht 165.1 cm; Wt 102.1 kg
[~2019-02-22 17:56] MED LIST changes: +HYDR-2761 PO
[2019-02-22] MEDS ORDERED: HYDROcodone/APAP 5/325MG 1 TAB TABLET PO ONE (19:00)
[2019-02-22] MEDS ORDERED: LIDO:MAALOX 1:1 20 ML SINGLE DOSE. SWSW ONE (19:00)
[2019-02-22] MEDS ORDERED: FAMOTIDINE 20 MG/2 ML VIAL IVP ONE (19:00)
[2019-02-22 19:05] LABS: BASO % 1 % (0-3); EOS # 0.5 x10^3/uL (0.0-0.7); EOS % 5 % (0-3); HEMATOCRIT 48.2 % (36.0-47.0); HEMOGLOBIN 15.7 g/dL (12.0-15.5); LYMPH # 2.6 x10^3/uL (1.0-4.8); LYMPH % 27 % (24-48); MEAN CORPUSCULAR HEMOGLOBIN 28 pg (25-35); MEAN CORPUSCULAR HGB CONC 33 g/dL (31-37); MEAN CORPUSCULAR VOLUME 87 fL (79-100); MONO # 0.6 x10^3/uL (0.0-1.1); MONO % 6 % (0-9); NEUT # 5.9 x10^3uL (1.8-7.7); NEUT % 61 % (31-73); PLATELET COUNT 195 x10^3/uL (140-400); RED BLOOD COUNT 5.55 x10^6/uL (3.50-5.40); RED CELL DISTRIBUTION WIDTH 14.6 % (11.5-14.5); WHITE BLOOD COUNT 9.7 x10^3/uL (4.0-11.0)
[2019-02-22 19:11] LABS: FECAL OB PT NEGATIVE (NEG)
[2019-02-22 19:15] LABS: CALCIUM 10.3 mg/dL (8.5-10.1); CREATININE 0.7 mg/dL (0.6-1.0); GFR 93.6; POTASSIUM 4.5 mmol/L (3.5-5.1)
[2019-02-22 19:21] LABS: ALBUMIN 3.7 g/dL (3.4-5.0); ALBUMIN/GLOBULIN RATIO 0.9 (1.0-1.7); TOTAL BILIRUBIN 0.4 mg/dL (0.2-1.0); TOTAL PROTEIN 7.6 g/dL (6.4-8.2)
--- NOTE | 2019-02-22 19:30 | PHYS DOC ---
Past Medical History Past Medical History: GI Bleed, Other Additional Past Medical Histor: OBESITY Past Surgical History: Cholecystectomy, Gastric Bypass, Hysterectomy, Other Additional Past Surgical Histo: RIGHT ROTATOR CUFF, EAR Alcohol Use: None Drug Use: None Adult General Chief Complaint Chief Complaint: CHEST PAIN [facility] HPI Patient is a 39 year old female who presents with 3 days of epigastric pain with radiating shooting pain to her left chest. The pain has progressively increased for the last three days and today she began to feel lightheaded and dizzy. Currently, the pain is 7/10. She was concerned she was going to pass out. She denies sensation of clamminess or sweating. She reports that she has a history of bleeding gastric and small intestinal ulcers and is suffering hematemesis and hematochezia. She reports the blood per rectum surrounds and is within her stool as well as red blood within the toilet. She denies black tarry stools. She reports the hematemesis is bright red but in a small amount. She reports that the pain increases with deep breaths and nothing alleviates the pain. She reports a cholecystectomy but maintains her appendix. Her last food intake was at 17:30 02/22/19. She denies SOB, radiating pain down her arm or into jaw, subjective fevers, and chills. She denies kidney problems, but reports that her uncle was on dialysis for a non-diabetic concern.[] Review of Systems Review of Systems Constitutional: Denies fever or chills [] Eyes: Denies change in visual acuity, redness, or eye pain [] HENT: Denies nasal congestion or sore throat [] Respiratory: Denies cough or shortness of breath [] Cardiovascular: No additional information not addressed in HPI [] GI: Reports epigastric pain with shooting pain to L-chest with hematemesis and hematochezia.[] : Denies dysuria or hematuria [] Musculoskeletal: Denies back pain or joint pain [] Integument: Denies rash or skin lesions [] Neurologic: Denies headache, focal weakness or sensory changes [] Endocrine: Denies polyuria or polydipsia [] All other systems were reviewed and found to be within normal limits, except as documented in this note. Current Medications Current Medications Current Medications Medications (Trade) Dose Ordered Sig/Marilyn Start Time Stop Time Status Last Admin Dose Admin Acetaminophen/ Hydrocodone Bitart (Lortab 5/325) 2 tab 1X ONCE 02/22/19 19:00 02/22/19 19:01 DC 02/22/19 20:34 2 TAB Famotidine (Pepcid Vial) 20 mg 1X ONCE 02/22/19 19:00 02/22/19 19:01 DC 02/22/19 20:34 20 MG Iohexol (Omnipaque 300 Mg/ml) 75 ml 1X ONCE 02/22/19 20:45 02/22/19 20:46 DC 02/22/19 20:43 75 ML Multi-Ingredient Mouthwash/Gargle (Gi Cocktail) 20 ml 1X ONCE 02/22/19 19:00 02/22/19 19:01 DC 02/22/19 20:33 20 ML Allergies Allergies Allergies Coded Allergies Type Severity Reaction Last Updated Verified Sulfa (Sulfonamide Antibiotics) Allergy Intermediate hives 05/11/18 No Physical Exam Physical Exam Constitutional: Well developed, well nourished, no acute distress, non-toxic appearance. [] HENT: Normocephalic, atraumatic, bilateral external ears normal, oropharynx moist, no oral exudates, nose normal. [] Eyes: PERRLA, EOMI, conjunctiva normal, no discharge. [] Neck: Normal range of motion, no tenderness, supple, no stridor. [] Cardiovascular:Heart rate regular rhythm, no murmur, rubs, gallops [] Lungs & Thorax: Bilateral breath sounds clear to auscultation, no wheezes, rales, crackles [] Abdomen: bowel sounds normal, soft, epigastric and RUQ tenderness, no masses, no pulsatile masses. Rectal exam demonstrated brown stool, no observed blood. [] Skin: Warm, dry, no erythema, no rash. [] Back: R-sided tenderness to palpation T6-T10. [] Extremities: No tenderness, no cyanosis, no clubbing, ROM intact, no edema. [] Neurologic: Alert and oriented X 3, normal motor function, normal sensory function, no focal deficits noted. [] Psychologic: Affect normal, judgement normal, mood normal. [] Current Patient Data Vital Signs Vital Signs Date Time Temp Pulse Resp B/P (MAP) Pulse Ox O2 Delivery O2 Flow Rate FiO2 02/22/19 22:00 18 116/72 (87) 98 Room Air 02/22/19 19:00 87 02/22/19 18:10 98.8 98.8 Lab Values Laboratory Tests Test 02/22/19 18:17 02/22/19 18:55 White Blood Count 9.7 x10^3/uL (4.0-11.0) Red Blood Count 5.55 x10^6/uL (3.50-5.40) H Hemoglobin 15.7 g/dL (12.0-15.5) H Hematocrit 48.2 % (36.0-47.0) H Mean Corpuscular Volume 87 fL (79-100) Mean Corpuscular Hemoglobin 28 pg (25-35) Mean Corpuscular Hemoglobin Concent 33 g/dL (31-37) Red Cell Distribution Width 14.6 % (11.5-14.5) H Platelet Count 195 x10^3/uL (140-400) Neutrophils (%) (Auto) 61 % (31-73) Lymphocytes (%) (Auto) 27 % (24-48) Monocytes (%) (Auto) 6 % (0-9) Eosinophils (%) (Auto) 5 % (0-3) H Basophils (%) (Auto) 1 % (0-3) Neutrophils # (Auto) 5.9 x10^3uL (1.8-7.7) Lymphocytes # (Auto) 2.6 x10^3/uL (1.0-4.8) Monocytes # (Auto) 0.6 x10^3/uL (0.0-1.1) Eosinophils # (Auto) 0.5 x10^3/uL (0.0-0.7) Basophils # (Auto) 0.0 x10^3/uL (0.0-0.2) Maternal Serum HCG Beta Subunit < 1 mIU/mL (0-5) Sodium Level 137 mmol/L (136-145) Potassium Level 4.5 mmol/L (3.5-5.1) Chloride Level 103 mmol/L (98-107) Carbon Dioxide Level 28 mmol/L (21-32) Anion Gap 6 (6-14) Blood Urea Nitrogen 11 mg/dL (7-20) Creatinine 0.7 mg/dL (0.6-1.0) Estimated GFR (Cockcroft-Gault) 93.6 BUN/Creatinine Ratio 16 (6-20) Glucose Level 89 mg/dL (70-99) Calcium Level 10.3 mg/dL (8.5-10.1) H Total Bilirubin 0.4 mg/dL (0.2-1.0) Aspartate Amino Transferase (AST) 13 U/L (15-37) L Alanine Aminotransferase (ALT) 15 U/L (14-59) Alkaline Phosphatase 114 U/L (46-116) Troponin I Quantitative < 0.017 ng/mL (0.000-0.055) Total Protein 7.6 g/dL (6.4-8.2) Albumin 3.7 g/dL (3.4-5.0) Albumin/Globulin Ratio 0.9 (1.0-1.7) L Lipase 83 U/L (73-393) Stool Occult Blood Negative (NEG) Laboratory Tests 02/22/19 18:17 Laboratory Tests 02/22/19 18:17 EKG EKG []Normal sinus rhythm rate of 83 no acute ischemic changes noted interpreted by me time of encounter Radiology/Procedures Radiology/Procedures [] Impressions: IMPRESSION: 1. No acute abnormality is identified. There is again fat-containing left ventral hernia in the abdomen. There is again small nonobstructive right renal calculus. There are postsurgical changes of the stomach. There is stable focus of noncalcified nodularity of the right lower lobe at the lung base. Electronically signed by: Bob Gonzales MD (02/22/2019 9:08 PM) [facility] cxr neg acute my read Course & Med Decision Making Course & Med Decision Making Pertinent Labs and Imaging studies reviewed. (See chart for details) 39/F presents with three days of epigastric pain with shooting pain to L-chest, Complete ER workup revealed no acute pathology hemoglobins normal CT scan was ne gative troponin negative I suspect patient does have known peptic ulcer disease she may be having recurrent flare recommended Carafate follow-up day omeprazole pain control follow-up with GI at this point in time I think she is stable for outpatient management no evidence of active GI bleed. Dragon Disclaimer Dragon Disclaimer This electronic medical record was generated, in whole or in part, using a voice recognition dictation system. Departure Departure Impression: Primary Impression: Abdominal pain Disposition: HOME, SELF-CARE Condition: STABLE Referrals: GAUSTAD,JESSICA I FURNITURE SANDER (PCP) Scripts Hydrocodone/Apap 5-325 (NORCO 5-325 TABLET) 1 Each Tablet 1-2 EACH PO PRN Q6HRS PRN for PAIN, #15 as needed for pain Prov: MEGAN COHN MD 02/22/19 Omeprazole (OMEPRAZOLE) 40 Mg Capsule.dr 1 CAP PO DAILY, #30 CAP 0 Refills Prov: MEGAN COHN MD 02/22/19 Sucralfate (CARAFATE) 1 Gm/10 Ml Oral.susp 10 ML PO BID, #120 ML 1 Refill Prov: MEGAN COHN MD 02/22/19 MEGAN COHN MD Feb 22, 2019 19:30
[2019-02-22] MEDS ORDERED: IOHEXOL 300 MG/ML 100ML VIAL. IV ONE (20:45)
--- NOTE | 2019-02-22 21:11 | RAD ---
CT ABD PELV W/ IV CONTRST ONLY Indication: Worsening epigastric pain for 3 days, rectal bleeding, hematemesis, history of bleeding ulcers a gastric bypass Technique: Postcontrast CT imaging was performed of the abdomen pelvis, multiplanar reconstruction images submitted. No oral contrast was given. One or more of the following individualized dose reduction techniques were utilized for this examination: 1. Automated exposure control 2. Adjustment of the mA and/or kV according to patient size 3. Use of iterative reconstruction technique. Comparison: November 24, 2018 Findings: There is a focus of noncalcified nodular density of the right lower lobe at the lung base about 1.2 cm in size as seen previously. No new focal abnormality is identified of the liver, pancreas, spleen. There again has been cholecystectomy. There is no adrenal nodularity. Both kidneys enhance, no hydronephrosis. There is again about 0.3 cm right renal calculus. Accurate evaluation of bowel is limited without oral contrast. Bowel is not significantly dilated. There is no free air, free fluid, significant localized inflammatory type change about the bowel. There is again fat-containing left ventral hernia in the abdomen, neck about 1.3 cm, transverse dimension of hernia sac about 5.6 cm, no internal bowel. IMPRESSION: 1. No acute abnormality is identified. There is again fat-containing left ventral hernia in the abdomen. There is again small nonobstructive right renal calculus. There are postsurgical changes of the stomach. There is stable focus of noncalcified nodularity of the right lower lobe at the lung base. Electronically signed by: Bob Gonzales MD (02/22/2019 9:08 PM) [facility]
[2019-02-22] MEDS ORDERED: HYDR-3164 PO (21:32)
[2019-02-22] MEDS ORDERED: SUCR1ORA5 PO (21:32)
[2019-02-22] MEDS ORDERED: OMEP40CA5 PO (21:32)
[2019-02-22 22:00] VITALS: BP 116/72
--- NOTE | 2019-02-23 07:17 | EKG ---
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 RI6.01 No previous ECG available for comparison Electronically Signed On 02-28-2019 11:36:56 CDT by Dayday Bright
--- NOTE | 2019-02-23 07:58 | RAD ---
Examination: PORTABLE CHEST 1V History: CHEST PAIN IN STERNUM AREA AND LEFT SIDE OF CHEST. Comparison/Correlation: None Findings: Portable upright frontal view chest was obtained. Heart size and pulmonary vasculature are normal. No infiltrate or pleural effusion. No pneumothorax. There are 2 screws identified overlying the right bony glenoid. Impression: No active disease. Electronically signed by: Wiley Najera MD (02/23/2019 7:55 AM) [facility]
== END 2019-02-22 22:09 | disposition home or self-care (01) ==
LOC: ER 17:56
DX: R10.13 Epigastric pain (principal); R10.11 Right upper quadrant pain; R07.89 Other chest pain; K92.1 Melena; K92.0 Hematemesis; R42 Dizziness and giddiness; E66.9 Obesity, unspecified; Z68.37 Body mass index [BMI] 37.0-37.9, adult; Z90.49 Acquired absence of other specified parts of digestive tract; Z90.710 Acquired absence of both cervix and uterus; Z99.2 Dependence on renal dialysis; Z88.2 Allergy status to sulfonamides
CPT/HCPCS: 36415; 71045; 74177; 80053; 82274; 83690; 84484; 84702; 85025; 93005; 96374; 99285; J3490; Q9967

== ENCOUNTER 2019-03-16 14:00 | Inpatient (IN) | payer OTHER ==
[~2019-03-16] VITALS: Ht 170.2 cm; Wt 102.1 kg
[~2019-03-16 14:00] MED LIST changes: +OMEP40CA5 PO
[2019-03-16 14:43] LABS: BASO # 0.1 x10^3/uL (0.0-0.2); BASO % 1 % (0-3); EOS # 0.3 x10^3/uL (0.0-0.7); EOS % 4 % (0-3); HEMATOCRIT 50.6 % (36.0-47.0); HEMOGLOBIN 16.3 g/dL (12.0-15.5); LYMPH % 28 % (24-48); MEAN CORPUSCULAR HEMOGLOBIN 28 pg (25-35); MEAN CORPUSCULAR HGB CONC 32 g/dL (31-37); MEAN CORPUSCULAR VOLUME 88 fL (79-100); MONO # 0.4 x10^3/uL (0.0-1.1); MONO % 6 % (0-9); NEUT # 4.3 x10^3uL (1.8-7.7); NEUT % 60 % (31-73); PLATELET COUNT 174 x10^3/uL (140-400); RED BLOOD COUNT 5.77 x10^6/uL (3.50-5.40); RED CELL DISTRIBUTION WIDTH 14.6 % (11.5-14.5); WHITE BLOOD COUNT 7.1 x10^3/uL (4.0-11.0)
[2019-03-16 14:54] LABS: PROTHROMBIN TIME PATIENT 13.8 SEC (11.7-14.0)
--- NOTE | 2019-03-16 14:54 | RAD ---
CT of the head without contrast, 03/16/2019: HISTORY: Left-sided weakness, stroke symptoms The ventricles are within normal limits in size. There is no shift of the midline structures. There is no evidence of acute intracranial hemorrhage or mass effect. 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 IMPRESSION: No acute intracranial abnormality is detected. RS Compliance Statement: One or more of the following individualized dose reduction techniques were utilized for this examination: 1. Automated exposure control 2. Adjustment of the mA and/or kV according to patient size 3. Use of iterative reconstruction technique Electronically signed by: Caleb Foster MD (03/16/2019 2:51 PM) [facility]
[2019-03-16 15:02] LABS: CALCIUM 10.8 mg/dL (8.5-10.1); CREATININE 0.8 mg/dL (0.6-1.0); GFR 80.3; POTASSIUM 4.3 mmol/L (3.5-5.1)
[2019-03-16 15:09] LABS: ALBUMIN 3.8 g/dL (3.4-5.0); TOTAL BILIRUBIN 0.8 mg/dL (0.2-1.0); TOTAL PROTEIN 7.6 g/dL (6.4-8.2)
[2019-03-16 15:19] LABS: CREATINE KINASE 43 U/L (26-192)
--- NOTE | 2019-03-16 15:19 | EKG ---
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
--- NOTE | 2019-03-16 15:19 | RAD ---
EXAM: CHEST 1 VIEW History: Fall, weakness COMPARISON: 02/22/2019 TECHNIQUE: Single portable radiograph of the chest FINDINGS: The cardiac silhouette is unremarkable. The lungs are clear bilaterally. The costophrenic sulci are clear and well demarcated. IMPRESSION: No radiographic evidence of an acute cardiopulmonary process. Electronically signed by: Bart Rebollar MD (03/16/2019 3:16 PM) [facility]
--- NOTE | 2019-03-16 16:28 | PHYS DOC ---
Past Medical History Past Medical History: GI Bleed, Other Additional Past Medical Histor: OBESITY, ULCERS (RONAK SARABIA APRN) Past Surgical History: Cholecystectomy, Gastric Bypass, Hysterectomy, Other Additional Past Surgical Histo: RIGHT ROTATOR CUFF, EAR, BLADDER SLING (RONAK SARABIA APRN) Alcohol Use: None Drug Use: None (RONAK SARABIA APRN) Adult General Chief Complaint Chief Complaint: MECHANICAL FALL HPI HPI Patient is a 39 year old female with history of acid reflex, gastric bypass, who presents to the ED today to be evaluated after falling. It's unknown what time patient fell but has left sided weakness. Patient states she was ambulating she got dizzy and fell. Patient does not remember what time she fell or even falling. She is currently alert and oriented 3 speaking with no slurred speech. She is complaining of pain on the entire left side. When i walked in the room and the nurses were doing NIHS stroke scale because they noted patient was showing signs of weakness on the left side. I stayed in the room and completed NIHS stroke scale. Patient states her mother had similar symptoms a couple years ago and was found to have 2 strokes. Patient denies any use of alcohol or drugs. Denies any other medical problems. (RONAK SARABIA APRN) Review of Systems Review of Systems Constitutional: Denies fever or chills [] Eyes: Denies change in visual acuity, redness, or eye pain [] HENT: Denies nasal congestion or sore throat [] Respiratory: Denies cough or shortness of breath [] Cardiovascular: No additional information not addressed in HPI [] GI: Denies abdominal pain, nausea, vomiting, bloody stools or diarrhea [] : Denies dysuria or hematuria [] Musculoskeletal: Reports pain to the entire left side. Denies back pain Integument: Denies rash or skin lesions [] Neurologic: Reports dizziness, LEFT-sided weakness. Denies headache, focal weakness or sensory changes [] All other systems were reviewed and found to be within normal limits, except as documented in this note. (RONAK SARABIA APRN) Physical Exam Physical Exam Constitutional: Well developed, well nourished, no acute distress, non-toxic appearance. [] HENT: Normocephalic, atraumatic, bilateral external ears normal, oropharynx moist, no oral exudates, nose normal. [] Eyes: PERRLA, EOMI, conjunctiva normal, no discharge. [] Neck: Normal range of motion, no tenderness, supple, no stridor. [] Cardiovascular:Heart rate regular rhythm, no murmur [] Lungs & Thorax: Bilateral breath sounds clear to auscultation [] Abdomen: Bowel sounds normal, soft, no tenderness, no masses, no pulsatile masses. [] Skin: Warm, dry, no erythema, no rash. [] Back: No tenderness, no CVA tenderness. [] Extremities: No tenderness, no cyanosis, no clubbing, passive range of motion intact to the left side, no edema. [] Neurologic: .Noted weakness on the left side. Noted left-sided facial droop. Limb ataxia left side. Alert and oriented X 4, normal motor function, normal sensory function, no focal deficits noted. Cranial nerves II through XII intact Psychologic: flat affect, depressed mood almost tearful (MUTUNGA,RONAK CLAIMS SPECIALIST) Current Patient Data Vital Signs Vital Signs Date Time Temp Pulse Resp B/P (MAP) Pulse Ox O2 Delivery O2 Flow Rate FiO2 03/16/19 16:10 68 16 99 03/16/19 14:12 98.4 120/72 (88) Room Air 98.4 (JHONY LAUREANO MD) Lab Values Laboratory Tests Test 03/16/19 14:33 03/16/19 14:35 03/16/19 16:10 Glucose (Fingerstick) 79 mg/dL (70-99) White Blood Count 7.1 x10^3/uL (4.0-11.0) Red Blood Count 5.77 x10^6/uL (3.50-5.40) H Hemoglobin 16.3 g/dL (12.0-15.5) H Hematocrit 50.6 % (36.0-47.0) H Mean Corpuscular Volume 88 fL (79-100) Mean Corpuscular Hemoglobin 28 pg (25-35) Mean Corpuscular Hemoglobin Concent 32 g/dL (31-37) Red Cell Distribution Width 14.6 % (11.5-14.5) H Platelet Count 174 x10^3/uL (140-400) Neutrophils (%) (Auto) 60 % (31-73) Lymphocytes (%) (Auto) 28 % (24-48) Monocytes (%) (Auto) 6 % (0-9) Eosinophils (%) (Auto) 4 % (0-3) H Basophils (%) (Auto) 1 % (0-3) Neutrophils # (Auto) 4.3 x10^3uL (1.8-7.7) Lymphocytes # (Auto) 2.0 x10^3/uL (1.0-4.8) Monocytes # (Auto) 0.4 x10^3/uL (0.0-1.1) Eosinophils # (Auto) 0.3 x10^3/uL (0.0-0.7) Basophils # (Auto) 0.1 x10^3/uL (0.0-0.2) Prothrombin Time 13.8 SEC (11.7-14.0) Prothrombin Time INR 1.1 (0.8-1.1) PTT 32 SEC (24-38) Sodium Level 141 mmol/L (136-145) Potassium Level 4.3 mmol/L (3.5-5.1) Chloride Level 105 mmol/L (98-107) Carbon Dioxide Level 27 mmol/L (21-32) Anion Gap 9 (6-14) Blood Urea Nitrogen 12 mg/dL (7-20) Creatinine 0.8 mg/dL (0.6-1.0) Estimated GFR (Cockcroft-Gault) 80.3 BUN/Creatinine Ratio 15 (6-20) Glucose Level 86 mg/dL (70-99) Calcium Level 10.8 mg/dL (8.5-10.1) H Magnesium Level 2.0 mg/dL (1.8-2.4) Total Bilirubin 0.8 mg/dL (0.2-1.0) Aspartate Amino Transferase (AST) 17 U/L (15-37) Alanine Aminotransferase (ALT) 15 U/L (14-59) Alkaline Phosphatase 123 U/L (46-116) H Creatine Kinase 43 U/L (26-192) Creatine Kinase MB (Mass) < 0.5 ng/mL (0.0-3.6) Creatine Kinase MB Relative Index % (0-4) Troponin I Quantitative < 0.017 ng/mL (0.000-0.055) OF-Mkl-D-Type Natriuretic Peptide 46 pg/mL (0-124) Total Protein 7.6 g/dL (6.4-8.2) Albumin 3.8 g/dL (3.4-5.0) Albumin/Globulin Ratio 1.0 (1.0-1.7) Thyroid Stimulating Hormone (TSH) 1.048 uIU/mL (0.358-3.74) Ethyl Alcohol Level < 10 mg/dL (0-10) Urine Opiates Screen Neg (NEG) Urine Methadone Screen Neg (NEG) Urine Barbiturates Neg (NEG) Urine Phencyclidine Screen Neg (NEG) Urine Amphetamine/Methamphetamine Neg (NEG) Urine Benzodiazepines Screen Neg (NEG) Urine Cocaine Screen Neg (NEG) Urine Cannabinoids Screen Neg (NEG) Urine Ethyl Alcohol Neg (NEG) Laboratory Tests 03/16/19 14:35 Laboratory Tests 03/16/19 14:35 (JHONY LAUREANO MD) EKG EKG 14:[address] Laureano sinus rhythm heart rate 69 no STEMI[] (RONAK SARABIA APRN) Radiology/Procedures Radiology/Procedures []PROCEDURE: PORTABLE CHEST 1V EXAM: CHEST 1 VIEW History: Fall, weakness COMPARISON: 02/22/2019 TECHNIQUE: Single portable radiograph of the chest FINDINGS: The cardiac silhouette is unremarkable. The lungs are clear bilaterally. The costophrenic sulci are clear and well demarcated. IMPRESSION: No radiographic evidence of an acute cardiopulmonary process. Electronically signed by: Bart Rebollar MD (03/16/2019 3:16 PM) [place] [id number] DICTATED and SIGNED BY: BART REBOLLAR MD DATE: 03/16/19 1516 PROCEDURE: CT CODE STROKE HEAD WO CT of the head without contrast, 03/16/2019: HISTORY: Left-sided weakness, stroke symptoms The ventricles are within normal limits in size. There is no shift of the midline structures. There is no evidence of acute intracranial hemorrhage or mass effect. 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 IMPRESSION: No acute intracranial abnormality is detected. [facility] Compliance Statement: One or more of the following individualized dose reduction techniques were utilized for this examination: 1. Automated exposure control 2. Adjustment of the mA and/or kV according to patient size 3. Use of iterative reconstruction technique Electronically signed by: Caleb Acosta MD (03/16/2019 2:51 PM) [facility] DICTATED and SIGNED BY: CALEB ACOSTA MD DATE: 03/16/19 8668 (RONAK SARABIA APRN) Course & Med Decision Making Course & Med Decision Making Pertinent Labs and Imaging studies reviewed. (See chart for details) This is a 39-year-old female patient presenting to the ED today to be evaluated after falling. It's unknown what time patient fell like she states she got dizzy and fell and her friend went to check on her and found on the ground. Patient also states she's had weakness and poor appetite for one week. Code stroke was activated. TPA was considered for this patient unfortunately we do not know the last known normal. On arrival to the ED noted patient has weakness on the left side, left-sided facial droop and Limb ataxia left side, patient does not know when the symptoms began. Stroke scale 3. Patient also states for the last 1 week she's had generalized weakness, poor appetite. CT of the head is negative. EKG is negative, chest x-ray is negative. CBC with no acute findings, CMP with calcium of 10.8. Vitals on arrival to the ED blood pressure 120/72, heart rate 86, temperature 98.4, O2 sats 97% on room air. Drug screen is negative. Spoke with Dr. Monzon she requested we do MRI brain with and without contrast. Spoke with Dr. Monzon who accepted patient for admission Sometime during her stay in the ED and went back to the room a couple times. I found patient holding her cell phone on her left hand in no distress. She appears to be holding the phone with a good protocol officer. When I started talking to her she dropped the phone intentionally. She states she still cannot feel her left side. (RONAK SARABIA APRN) Course & Med Decision Making This pt was seen by an MAISHA. I did not see or evaluate the pt unless specified above. I was available for consultation as needed. (JHONY LAUREANO MD) Dragon Disclaimer Dragon Disclaimer This electronic medical record was generated, in whole or in part, using a voice recognition dictation system. (RONAK SARABIA APRN) Departure Departure Impression: Primary Impression: Left-sided weakness Additional Impressions: Dizziness Fall from standing Disposition: ADMITTED INPATIENT Condition: STABLE Referrals: JESSICA BOLES APRN (PCP) NIHSS Stroke Scale NIH Stroke Scale: NIH Stroke Scale Response (Comments) Value Level of Consciousness: 0 Alert/Responsive 0 LOC Questions: 0 Answers both correctly 0 Best Gaze: 0 Normal 0 Visual: 0 No visual loss 0 Facial Palsy: 1 Minor paralysis 1 Motor - Left Arm 1 Drifts, but can hold 1 Motor - Right Arm 0 No drift 0 Motor - Left Leg 0 No drift 0 Motor: Right Leg 0 No drift 0 Limb Ataxia: 1 One limb 1 Best Language: 0 Normal 0 Dysathria: 0 Normal 0 Extinction and Inattention: 0 Normal 0 Total 3 Problem Qualifiers Additional Impressions: Fall from standing Encounter type: initial encounter Qualified Codes: W19.XXXA - Unspecified fall, initial encounter RONAK SARABIA APRN March 16, 2019 16:28 JOHNY LAUREANO MD March 25, 2019 18:37
[2019-03-16 16:29] LABS: BARBITURATES NEG (NEG); BENZODIAZEPINES NEG (NEG); CANNABINOIDS NEG (NEG); COCAINE NEG (NEG); METHADONE NEG (NEG); OPIATES NEG (NEG); PHENCYCLIDINE NEG (NEG)
[2019-03-16 16:35] LABS: AMPHETAMINE/METHAMPHETAMINE NEG (NEG)
[2019-03-16] MEDS ORDERED: ONDANSETRON ODT 4 MG TAB.RAPDIS. PO PRN (16:45)
[2019-03-16] MEDS ORDERED: ALBUTEROL SULFATE 2.5 MG/3 ML NEBU. NEB PRN (16:45)
[2019-03-16] MEDS ORDERED: HYDROcodone/APAP 5/325MG 1 TAB TABLET PO PRN (16:45)
[2019-03-16] MEDS ORDERED: ONDANSETRON PF 4 MG/2 ML VIAL. IV PRN ×2 (16:45→17:00)
[2019-03-16] MEDS ORDERED: cloNIDine HCL 0.1 MG TABLET PO PRN (16:45)
[2019-03-16] MEDS ORDERED: ACETAMINOPHEN 325 MG TABLET. PO PRN (16:45)
[2019-03-16] MEDS ORDERED: DOCUSATE SODIUM 100 MG CAPSULE. PO PRN (16:45)
[2019-03-16] MEDS ORDERED: MORPHINE SULFATE 2 MG/ML VIAL. IV PRN (17:00)
[2019-03-16] MEDS: SUCRALFATE 1 GM TABLET. PO SCH ×2 (17:00→21:00)
[2019-03-16 19:00] VITALS: BP 117/78
--- NOTE | 2019-03-16 19:47 | PDOC1 ---
History and Physical Date of Admission Date of Admission 03/16/2019 Identification/Chief Complaint Chief Complaint I passed out Source Source: Chart review, Patient History of Present Illness History of Present Illness Patient is a 39-year-old female with past medical history of gastric banding/bypass, unclear which procedure she had 4 gastric reduction. Patient was in her usual state of health until this morning when she was on her way to her son's room and patient told her son that she was "feeling funny". Patient did not have any auditory or AUDITORY aura-type of symptoms. She fell on the floor and she does not remember having chest discomfort headaches palpitations prior to the incident. The patient and had this episode witnessed by her son and no seizure like activity was reporrtec, there is no evidence of tongue trauma, no bowel or urine incontinence reported. patient refers being "jerky" while waking up from the incident. Subsequently she developed numbness senstation over the left isde of her body, no slurred speech or droop in her face was reported, Neurology financial services consultant was contacted who requested admission to our service for further evaluation She is in no apparent distress during my interview. no neurological deficits were evident. No fever chills or neck stiffness reported, no cold like symtpoms no other symptoms related. Denies headache or blurred vision. Past Medical History Cardiovascular: No pertinent hx Past Surgical History Past Surgical History: Cholecystectomy, Tonsillectomy, Hysterectomy, Other Family History Family History: No Significant Social History ALCOHOL: none Drugs: None Current Problem List Problem List Problems Medical Problems: (1) Dizziness Status: Acute (2) Fall from standing Status: Acute (3) Left-sided weakness Status: Acute Current Medications Current Medications Current Medications Medications (Trade) Dose Ordered Sig/Marilyn Start Time Stop Time Status Last Admin Dose Admin Acetaminophen (Tylenol) 650 mg PRN Q4HRS PRN 03/16/19 16:45 Acetaminophen/ Hydrocodone Bitart (Lortab 5/325) 1 tab PRN Q6HRS PRN 03/16/19 16:45 Albuterol Sulfate (Ventolin Neb Soln) 2.5 mg PRN Q4HRS PRN 03/16/19 16:45 Clonidine HCl (Catapres) 0.1 mg PRN Q6HRS PRN 03/16/19 16:45 Diphenhydramine HCl (Benadryl) 25 mg PRN Q4HRS PRN 03/16/19 16:45 Docusate Sodium (Colace) 100 mg PRN BID PRN 03/16/19 16:45 Lorazepam (Ativan) 0.5 mg PRN Q4HRS PRN 03/16/19 16:45 Morphine Sulfate (Morphine Sulfate) 2 mg PRN Q2HR PRN 03/16/19 17:00 03/17/19 16:59 Multivitamins (Thera M Plus) 1 tab DAILY 03/17/19 09:00 Non-Formulary Medication (Omeprazole ) 1 cap DAILY 03/17/19 09:00 UNV Non-Formulary Medication ([Pantoprazole] ) 40 mg DAILYAC 03/17/19 07:30 UNV Ondansetron HCl (Zofran Odt) 4 mg PRN BID PRN 03/16/19 16:45 Ondansetron HCl (Zofran) 4 mg PRN Q8HRS PRN 03/16/19 17:00 03/17/19 16:59 UNV Pantoprazole Sodium (Protonix) 40 mg DAILYAC 03/17/19 07:30 Sucralfate (Carafate) 1 gm QIDACHS 03/16/19 17:00 Zolpidem Tartrate (Ambien) 5 mg PRN QHS PRN 03/16/19 16:45 Allergies Allergies Allergies Coded Allergies Type Severity Reaction Last Updated Verified Sulfa (Sulfonamide Antibiotics) Allergy Intermediate hives 05/11/18 No ROS Review of System CONSTITUTIONAL: No fever or chills EYES: No recent changes SKIN: No rash or itching CARDIOVASCULAR: No chest pain, syncope, palpitations, or edema RESPIRATORY: No SOB or cough GASTROINTESTINAL: No nausea, vomiting or abdominal pain NEUROLOGICAL: No headaches or weakness ENDOCRINE: No cold or heat intolerance GENITOURINARY: No urgency or frequency of urination MUSCULOSKELETAL: No back pain or joint pain LYMPHATICS: No enlarged lymph nodes PSYCHIATRIC: No anxiety or depression Physical Exam Physical Exam GEN.: No apparent distress. Alert and oriented. HEENT: Head is normocephalic, atraumatic NECK: Supple. LUNGS: Clear to auscultation. HEART: RRR, S1, S2 present. Peripheral pulses intact ABDOMEN: Soft, nontender. Positive bowel sounds. EXTREMITIES: Without any cyanosis. NEUROLOGIC: Normal speech, normal tone PSYCHIATRIC: Normal affect, normal mood. SKIN: No ulcerations Vitals Vitals Vital Signs Date Time Temp Pulse Resp B/P (MAP) Pulse Ox O2 Delivery O2 Flow Rate FiO2 03/16/19 19:00 98.8 76 117/78 (91) 98 Room Air 98.8 03/16/19 16:10 16 Labs Labs Laboratory Tests Test 03/16/19 14:33 03/16/19 14:35 03/16/19 16:10 03/16/19 17:30 Glucose (Fingerstick) 79 mg/dL (70-99) White Blood Count 7.1 x10^3/uL (4.0-11.0) Red Blood Count 5.77 x10^6/uL (3.50-5.40) Hemoglobin 16.3 g/dL (12.0-15.5) Hematocrit 50.6 % (36.0-47.0) Mean Corpuscular Volume 88 fL (79-100) Mean Corpuscular Hemoglobin 28 pg (25-35) Mean Corpuscular Hemoglobin Concent 32 g/dL (31-37) Red Cell Distribution Width 14.6 % (11.5-14.5) Platelet Count 174 x10^3/uL (140-400) Neutrophils (%) (Auto) 60 % (31-73) Lymphocytes (%) (Auto) 28 % (24-48) Monocytes (%) (Auto) 6 % (0-9) Eosinophils (%) (Auto) 4 % (0-3) Basophils (%) (Auto) 1 % (0-3) Neutrophils # (Auto) 4.3 x10^3uL (1.8-7.7) Lymphocytes # (Auto) 2.0 x10^3/uL (1.0-4.8) Monocytes # (Auto) 0.4 x10^3/uL (0.0-1.1) Eosinophils # (Auto) 0.3 x10^3/uL (0.0-0.7) Basophils # (Auto) 0.1 x10^3/uL (0.0-0.2) Prothrombin Time 13.8 SEC (11.7-14.0) Prothromb Time International Ratio 1.1 (0.8-1.1) Activated Partial Thromboplast Time 32 SEC (24-38) Sodium Level 141 mmol/L (136-145) Potassium Level 4.3 mmol/L (3.5-5.1) Chloride Level 105 mmol/L (98-107) Carbon Dioxide Level 27 mmol/L (21-32) Anion Gap 9 (6-14) Blood Urea Nitrogen 12 mg/dL (7-20) Creatinine 0.8 mg/dL (0.6-1.0) Estimated GFR (Cockcroft-Gault) 80.3 BUN/Creatinine Ratio 15 (6-20) Glucose Level 86 mg/dL (70-99) Calcium Level 10.8 mg/dL (8.5-10.1) Magnesium Level 2.0 mg/dL (1.8-2.4) Total Bilirubin 0.8 mg/dL (0.2-1.0) Aspartate Amino Transf (AST/SGOT) 17 U/L (15-37) Alanine Aminotransferase (ALT/SGPT) 15 U/L (14-59) Alkaline Phosphatase 123 U/L (46-116) Creatine Kinase 43 U/L (26-192) Creatine Kinase MB (Mass) < 0.5 ng/mL (0.0-3.6) Creatine Kinase MB Relative Index % (0-4) Troponin I Quantitative < 0.017 ng/mL (0.000-0.055) 0.019 ng/mL (0.000-0.055) MK-Ane-O-Type Natriuretic Peptide 46 pg/mL (0-124) Total Protein 7.6 g/dL (6.4-8.2) Albumin 3.8 g/dL (3.4-5.0) Albumin/Globulin Ratio 1.0 (1.0-1.7) Thyroid Stimulating Hormone (TSH) 1.048 uIU/mL (0.358-3.74) Ethyl Alcohol Level < 10 mg/dL (0-10) Urine Opiates Screen Neg (NEG) Urine Methadone Screen Neg (NEG) Urine Barbiturates Neg (NEG) Urine Phencyclidine Screen Neg (NEG) Urine Amphetamine/Methamphetamine Neg (NEG) Urine Benzodiazepines Screen Neg (NEG) Urine Cocaine Screen Neg (NEG) Urine Cannabinoids Screen Neg (NEG) Urine Ethyl Alcohol Neg (NEG) Lactic Acid Level 0.9 mmol/L (0.4-2.0) Laboratory Tests Test 03/16/19 14:33 03/16/19 14:35 03/16/19 16:10 03/16/19 17:30 Glucose (Fingerstick) 79 mg/dL (70-99) White Blood Count 7.1 x10^3/uL (4.0-11.0) Red Blood Count 5.77 x10^6/uL (3.50-5.40) Hemoglobin 16.3 g/dL (12.0-15.5) Hematocrit 50.6 % (36.0-47.0) Mean Corpuscular Volume 88 fL (79-100) Mean Corpuscular Hemoglobin 28 pg (25-35) Mean Corpuscular Hemoglobin Concent 32 g/dL (31-37) Red Cell Distribution Width 14.6 % (11.5-14.5) Platelet Count 174 x10^3/uL (140-400) Neutrophils (%) (Auto) 60 % (31-73) Lymphocytes (%) (Auto) 28 % (24-48) Monocytes (%) (Auto) 6 % (0-9) Eosinophils (%) (Auto) 4 % (0-3) Basophils (%) (Auto) 1 % (0-3) Neutrophils # (Auto) 4.3 x10^3uL (1.8-7.7) Lymphocytes # (Auto) 2.0 x10^3/uL (1.0-4.8) Monocytes # (Auto) 0.4 x10^3/uL (0.0-1.1) Eosinophils # (Auto) 0.3 x10^3/uL (0.0-0.7) Basophils # (Auto) 0.1 x10^3/uL (0.0-0.2) Prothrombin Time 13.8 SEC (11.7-14.0) Prothromb Time International Ratio 1.1 (0.8-1.1) Activated Partial Thromboplast Time 32 SEC (24-38) Sodium Level 141 mmol/L (136-145) Potassium Level 4.3 mmol/L (3.5-5.1) Chloride Level 105 mmol/L (98-107) Carbon Dioxide Level 27 mmol/L (21-32) Anion Gap 9 (6-14) Blood Urea Nitrogen 12 mg/dL (7-20) Creatinine 0.8 mg/dL (0.6-1.0) Estimated GFR (Cockcroft-Gault) 80.3 BUN/Creatinine Ratio 15 (6-20) Glucose Level 86 mg/dL (70-99) Calcium Level 10.8 mg/dL (8.5-10.1) Magnesium Level 2.0 mg/dL (1.8-2.4) Total Bilirubin 0.8 mg/dL (0.2-1.0) Aspartate Amino Transf (AST/SGOT) 17 U/L (15-37) Alanine Aminotransferase (ALT/SGPT) 15 U/L (14-59) Alkaline Phosphatase 123 U/L (46-116) Creatine Kinase 43 U/L (26-192) Creatine Kinase MB (Mass) < 0.5 ng/mL (0.0-3.6) Creatine Kinase MB Relative Index % (0-4) Troponin I Quantitative < 0.017 ng/mL (0.000-0.055) 0.019 ng/mL (0.000-0.055) TI-Gxf-R-Type Natriuretic Peptide 46 pg/mL (0-124) Total Protein 7.6 g/dL (6.4-8.2) Albumin 3.8 g/dL (3.4-5.0) Albumin/Globulin Ratio 1.0 (1.0-1.7) Thyroid Stimulating Hormone (TSH) 1.048 uIU/mL (0.358-3.74) Ethyl Alcohol Level < 10 mg/dL (0-10) Urine Opiates Screen Neg (NEG) Urine Methadone Screen Neg (NEG) Urine Barbiturates Neg (NEG) Urine Phencyclidine Screen Neg (NEG) Urine Amphetamine/Methamphetamine Neg (NEG) Urine Benzodiazepines Screen Neg (NEG) Urine Cocaine Screen Neg (NEG) Urine Cannabinoids Screen Neg (NEG) Urine Ethyl Alcohol Neg (NEG) Lactic Acid Level 0.9 mmol/L (0.4-2.0) VTE Prophylaxis Ordered VTE Prophylaxis Devices: No VTE Pharmacological Prophylaxi: Yes Assessment/Plan Assessment/Plan Syncopal episode, seems to be orthostatic since the patient related very little appetite recently History of gastric bypass? Intermittent nausea obesity with bmi of 35 Plan; will follow recommendations from anac kate checks will check orthostatics resume home medictiaons reassess in the am further recommendations based on clinical course. GUANAKO JASSO MD March 16, 2019 19:47
[2019-03-16] MEDS ORDERED: GADOTERATE 5 MMOL/10ML VIAL. IVP ONE ×2 (20:00)
[2019-03-16] MEDS: HYDROcodone/APAP 5/325MG 1 TAB TABLET PO PRN (21:10)
[2019-03-16] MEDS: ZOLPIDEM 5 MG TABLET. PO PRN (21:10)
--- NOTE | 2019-03-16 21:33 | RAD ---
MRI of the Brain without and with Contrast 03/16/2019 Clinical History: Left-sided weakness. Technique: Unenhanced T1-weighted sagittal and axial and FLAIR, T2-weighted, gradient echo and diffusion-weighted axial images of the brain were obtained. After the intravenous administration of 20 cc of Dotarem, enhanced T1-weighted axial and coronal images of the brain were obtained. Findings: Comparison is made to patient's CT scan of the head performed earlier today. The ventricles and sulci are within normal limits in size and configuration. No area of significant abnormal signal intensity is seen involving the brain parenchyma. No abnormal area of contrast enhancement is seen. No extra-axial fluid collection is noted. There is no MRI evidence of acute ischemia/infarction. Mild mucosal thickening in seen scattered throughout the paranasal sinuses. A 2 cm mucous retention cyst is seen involving the left maxillary sinus. There is a small right mastoid effusion. A moderate sized left mastoid effusion is seen. Normal flow voids are seen within the major vascular structures surrounding the brain parenchyma. Impression: 1. Negative MRI of the brain. 2. Mild paranasal sinus and mastoid disease. Electronically signed by: Td Zavaleta MD (03/16/2019 9:30 PM) [facility]
[2019-03-16] MEDS: NICOTINE 21MG PATCH. TD SCH (22:49)
[2019-03-16] MEDS: LORazepam 0.5 MG TABLET PO PRN (22:52)
[2019-03-16] MEDS: diphenhydrAMINE 50 MG/ML VIAL IVP PRN (22:55)
[2019-03-16 23:04] VITALS: BP 110/69
[2019-03-17 03:10] VITALS: BP 89/55
[2019-03-17 04:24] LABS: BASO # 0.1 x10^3/uL (0.0-0.2); BASO % 1 % (0-3); EOS # 0.4 x10^3/uL (0.0-0.7); EOS % 5 % (0-3); HEMATOCRIT 44.5 % (36.0-47.0); HEMOGLOBIN 14.3 g/dL (12.0-15.5); LYMPH # 3.4 x10^3/uL (1.0-4.8); LYMPH % 42 % (24-48); MEAN CORPUSCULAR HEMOGLOBIN 28 pg (25-35); MEAN CORPUSCULAR HGB CONC 32 g/dL (31-37); MEAN CORPUSCULAR VOLUME 88 fL (79-100); MONO # 0.6 x10^3/uL (0.0-1.1); MONO % 7 % (0-9); NEUT # 3.6 x10^3uL (1.8-7.7); NEUT % 45 % (31-73); PLATELET COUNT 148 x10^3/uL (140-400); RED BLOOD COUNT 5.06 x10^6/uL (3.50-5.40); RED CELL DISTRIBUTION WIDTH 14.7 % (11.5-14.5)
[2019-03-17 04:36] LABS: CALCIUM 9.9 mg/dL (8.5-10.1); CREATININE 0.6 mg/dL (0.6-1.0); GFR 111.9; POTASSIUM 3.8 mmol/L (3.5-5.1)
[2019-03-17 07:00] VITALS: BP 103/61
[2019-03-17] MEDS ORDERED: NON FORMULARY ITEM ([Pantoprazole] 40 MG) PO SCH (07:30)
[2019-03-17] MEDS: SUCRALFATE 1 GM TABLET. PO SCH ×4 (08:00→21:56)
[2019-03-17] MEDS: PANTOPRAZOLE 40 MG TABLET.DR. PO SCH (08:00)
[2019-03-17] MEDS: MULTIVITAMIN with MINERAL TABLET. PO SCH (08:05)
[2019-03-17] MEDS: HYDROcodone/APAP 5/325MG 1 TAB TABLET PO PRN ×2 (08:06→18:32)
[2019-03-17] MEDS: NICOTINE 21MG PATCH. TD SCH (08:07)
[2019-03-17] MEDS ORDERED: NON FORMULARY ITEM (Omeprazole 1 CAP) PO SCH (09:00)
[2019-03-17 11:00] VITALS: BP 108/51
[2019-03-17 15:00] VITALS: BP 95/60
--- NOTE | 2019-03-17 15:37 | PDOC2 ---
NEUROLOGY CONSULT Date of Admission Date of Admission DATE: 03/17/19 TIME: 15:25 Reason for Consult Reason for Consult: IMPRESSION: Left side weakness.. Fall. Abdominal pain. Vomiting at times. Hx of gastric bypass about 1.5 years ago. Obesity. No evidence of acute CVA this time. RECOMMENDATIONS/PLAN: C-spine MRI w/wo contrast, outpatient base [place]. ASA daily. Treat medical diseases. Lab: see orders. OT/PT. HISTORY OF THE PRESENT ILLNESS: Patient is a 39-year-old female with past medical history of gastric bandin g/bypass, unclear which procedure she had 4 gastric reduction. Patient was in her usual state of health until this morning when she was on her way to her son's room and patient told her son that she was "feeling funny". Patient did not have any auditory or AUDITORY aura-type of symptoms. She fell on the floor and she does not remember having chest discomfort headaches palpitations prior to the incident. The patient and had this episode witnessed by her son and no seizure like activity was reported, there is no evidence of tongue trauma, no bowel or urine incontinence reported. patient refers being "jerky" while waking up from the incident. Subsequently she developed numbness sensation over the left side of her body, no slurred speech or droop in her face was reported. Past Medical History GI bleeding. Gastric bypass surgery. Obesity. Past Surgical History Cholecystectomy, Tonsillectomy, Hysterectomy, gastric bypass. Family History Non contributory. ALLERGY: Sofa drugs. MEDICATIONS: Refer to [facility] SOCIAL HISTORY: Lives at home. Denies smoking, drinking, and illicit drug use. REVIEW OF SYSTEMS: Constitutional: Obese. Head: No traumatic brain or head injury. Skin: No edema, or rash. Ear: No infection. Eyes: No vision loss or color blindness. Nose: No bleeding or purulent discharges. Hearing: No hearing decrease. Neck: No injury. Breast: No history of cancer, masses,or discharges. Cardiac: No TN, arrhythmia. Pulmonary: No COPD. GI: GI bleeding. Urinary/genital: UTI. Endocrinologic: Obesity. Skeletomuscular: No muscular atrophy. Neurological: see HP. Psychiatric: Denies drug use/abuse. Otherwise, not [id number] review of systems. PHYSICAL EXAMINATION: General appearance is in no acute distress. HEENT: Normocephalic and nontraumatic. Eyes, nose, ears, and throat are unremarkable. Neck is supple. No lymphadenopathy. No bruits are heard over the carotid artery. No crepitus. Cardiovascular: S1, S2, regular rate and rhythm. Pulmonary: Clear to auscultation bilaterally. Abdomen: Bowel sounds are positive. Abdomen is soft, nontender, and nondistended. Extremities: No rash, lesions, or edema. No restriction of range of motion NEUROLOGICAL EXAMINATION: Alert Oriented to time, place and person. PERRL. EOMI. CN: no focal findings. Muscle tone: within normal. Muscle strength: 5, left side 5-? Subjective? DTR: 2 Plantar reflex: Flexor response bilaterally Gait: not examined in bed. Sensory exam: no abnormal findings. No cerebellar signs elicited. F-T-N test accurate. Current Medications Current Medications Current Medications Ondansetron HCl (Zofran) 4 mg PRN Q4HRS PRN IV NAUSEA/VOMITING; Start 03/16/19 at 16:45 Zolpidem Tartrate (Ambien) 5 mg PRN QHS PRN PO INSOMNIA Last administered on 03/16/19at 21:10; Start 03/16/19 at 16:45 Acetaminophen (Tylenol) 650 mg PRN Q4HRS PRN PO TEMP OVER 100.4F OR MILD PAIN; Start 03/16/19 at 16:45 Clonidine HCl (Catapres) 0.1 mg PRN Q6HRS PRN PO SBP>160 OR DBP>90; Start 03/16/19 at 16:45 Diphenhydramine HCl (Benadryl) 25 mg PRN Q4HRS PRN IVP ITCHING Last administ ered on 03/16/19at 22:55; Start 03/16/19 at 16:45 Docusate Sodium (Colace) 100 mg PRN BID PRN PO CONSTIPATION; Start 03/16/19 at 16:45 Albuterol Sulfate (Ventolin Neb Soln) 2.5 mg PRN Q4HRS PRN NEB SHORTNESS OF BREATH; Start 03/16/19 at 16:45 Lorazepam (Ativan) 0.5 mg PRN Q4HRS PRN PO ANXIETY / AGITATION Last administered on 03/16/19at 22:52; Start 03/16/19 at 16:45 Acetaminophen/ Hydrocodone Bitart (Lortab 5/325) 1 tab PRN Q6HRS PRN PO MODERATE PAIN; Start 03/16/19 at 16:45; Status Cancel Acetaminophen/ Hydrocodone Bitart (Lortab 5/325) 1 tab PRN Q6HRS PRN PO SEVERE PAIN 7-10 Last administered on 03/17/19at 08:06; Start 03/16/19 at 16:45 Ondansetron HCl (Zofran Odt) 4 mg PRN BID PRN PO NAUSEA/VOMITING; Start 03/16/19 at 16:45 Multivitamins (Thera M Plus) 1 tab DAILY PO Last administered on 03/17/19at 08:05; Start 03/17/19 at 09:00 Non-Formulary Medication (Omeprazole ) 1 cap DAILY PO ; Start 03/17/19 at 09:00; Status UNV Sucralfate (Carafate) 1 gm QIDACHS PO Last administered on 03/17/19at 12:07; Start 03/16/19 at 17:00 Pantoprazole Sodium (Protonix) 40 mg DAILYAC PO Last administered on 03/17/19at 08:00; Start 03/17/19 at 07:30 Non-Formulary Medication ([Pantoprazole] ) 40 mg DAILYAC PO ; Start 03/17/19 at 07:30; Status UNV Ondansetron HCl (Zofran) 4 mg PRN Q8HRS PRN IV NAUSEA/VOMITING; Start 03/16/19 at 17:00; Stop 03/17/19 at 16:59; Status UNV Morphine Sulfate (Morphine Sulfate) 2 mg PRN Q2HR PRN IV PAIN; Start 03/16/19 at 17:00; Stop 03/17/19 at 16:59 Gadoterate Meglumine (Dotarem) 10 ml 1X ONCE IVP Last administered on 03/16/19at 20:19; Start 03/16/19 at 20:00; Stop 03/16/19 at 20:09; Status DC Gadoterate Meglumine (Dotarem) 10 ml 1X ONCE IVP Last administered on 03/16/19at 20:19; Start 03/16/19 at 20:00; Stop 03/16/19 at 20:09; Status DC Nicotine (Nicoderm Cq 21mg) 1 patch DAILY TD Last administered on 03/17/19at 08:07; Start 03/16/19 at 22:30 Active Scripts Active [place] 5-325 Tablet (Acetaminophen/Hydrocodone Bitart) 1 Each Tablet 1-2 Each PO PRN Q6HRS PRN as needed for pain Omeprazole 40 Mg Capsule.dr 1 Cap PO DAILY Carafate (Sucralfate) 1 Gm/10 Ml Oral.susp 10 Ml PO BID Hydrocodone-Apap 5-325 (Hydrocodone Bit/Acetaminophen) 1 Tab Tablet 1 Tab PO PRN Q6HRS PRN 3 Days Ondansetron Odt (Ondansetron) 4 Mg Tab.rapdis 4 Mg PO BID PRN Pal[place] 5-325 Tablet (Acetaminophen/Hydrocodone Bitart) 1 Each Tablet 1-2 Each PO PRN Q6HRS PRN as needed for pain [Pantoprazole] 40 MG Tablet.dr 40 Mg PO DAILYAC 30 Days Carafate (Sucralfate) 1 Gm/10 Ml Oral.susp 1 Gm PO QIDACHS 30 Days Reported Multivitamins (Multivitamin) 1 Each Tablet 1 Each PO DAILY Allergies Allergies: Allergies Coded Allergies Type Severity Reaction Last Updated Verified Sulfa (Sulfonamide Antibiotics) Allergy Intermediate hives 05/11/18 No ROS Review of System The patient denies any associated fevers, chills, headache, ear pain, rhinorrhea, sore throat, stiff neck, productive cough, chest pain, shortness of breath, back or flank pain, abdominal pain, nausea, vomiting, diarrhea, constipation, dysuria, rash, numbness, weakness, tingling, incontinence, difficulty ambulating, or diaphoresis. Physical Exam Physical Exam General: Well developed, well nourished, no acute distress, well appearing HEENT: Pupils equally round and reactive to light, EOMI, no discharge, normal conjunctiva Neck: Supple, no nuchal rigidity, no JVD, trachea midline, no tenderness Cardiac: RRR, no murmurs, no gallops, no rubs Chest/Lungs: CTAB, no wheeze, no rhonchi, no crackles Abdomen: soft, non-distended, no guarding, no peritoneal signs, non-tender Back: No tenderness Extremities: no edema, pulses intact, non-tender,capillary refill <3 sec bilateral upper and lower extremities, Neuro: Alert and oriented x 4, no focal deficits, normal speech Vitals Vitals: Vital Signs Date Time Temp Pulse Resp B/P (MAP) Pulse Ox O2 Delivery O2 Flow Rate FiO2 03/17/19 11:00 69 18 108/51 (70) 97 Room Air 03/17/19 07:00 97.5 97.5 Labs Labs Laboratory Tests Test 03/16/19 14:33 03/16/19 14:35 03/16/19 16:10 03/16/19 17:30 Glucose (Fingerstick) 79 mg/dL (70-99) White Blood Count 7.1 x10^3/uL (4.0-11.0) Red Blood Count 5.77 x10^6/uL (3.50-5.40) Hemoglobin 16.3 g/dL (12.0-15.5) Hematocrit 50.6 % (36.0-47.0) Mean Corpuscular Volume 88 fL (79-100) Mean Corpuscular Hemoglobin 28 pg (25-35) Mean Corpuscular Hemoglobin Concent 32 g/dL (31-37) Red Cell Distribution Width 14.6 % (11.5-14.5) Platelet Count 174 x10^3/uL (140-400) Neutrophils (%) (Auto) 60 % (31-73) Lymphocytes (%) (Auto) 28 % (24-48) Monocytes (%) (Auto) 6 % (0-9) Eosinophils (%) (Auto) 4 % (0-3) Basophils (%) (Auto) 1 % (0-3) Neutrophils # (Auto) 4.3 x10^3uL (1.8-7.7) Lymphocytes # (Auto) 2.0 x10^3/uL (1.0-4.8) Monocytes # (Auto) 0.4 x10^3/uL (0.0-1.1) Eosinophils # (Auto) 0.3 x10^3/uL (0.0-0.7) Basophils # (Auto) 0.1 x10^3/uL (0.0-0.2) Prothrombin Time 13.8 SEC (11.7-14.0) Prothromb Time International Ratio 1.1 (0.8-1.1) Activated Partial Thromboplast Time 32 SEC (24-38) Sodium Level 141 mmol/L (136-145) Potassium Level 4.3 mmol/L (3.5-5.1) Chloride Level 105 mmol/L (98-107) Carbon Dioxide Level 27 mmol/L (21-32) Anion Gap 9 (6-14) Blood Urea Nitrogen 12 mg/dL (7-20) Creatinine 0.8 mg/dL (0.6-1.0) Estimated GFR (Cockcroft-Gault) 80.3 BUN/Creatinine Ratio 15 (6-20) Glucose Level 86 mg/dL (70-99) Calcium Level 10.8 mg/dL (8.5-10.1) Magnesium Level 2.0 mg/dL (1.8-2.4) Total Bilirubin 0.8 mg/dL (0.2-1.0) Aspartate Amino Transf (AST/SGOT) 17 U/L (15-37) Alanine Aminotransferase (ALT/SGPT) 15 U/L (14-59) Alkaline Phosphatase 123 U/L (46-116) Creatine Kinase 43 U/L (26-192) Creatine Kinase MB (Mass) < 0.5 ng/mL (0.0-3.6) Creatine Kinase MB Relative Index % (0-4) Troponin I Quantitative < 0.017 ng/mL (0.000-0.055) 0.019 ng/mL (0.000-0.055) [id number]-Type Natriuretic Peptide 46 pg/mL (0-124) Total Protein 7.6 g/dL (6.4-8.2) Albumin 3.8 g/dL (3.4-5.0) Albumin/Globulin Ratio 1.0 (1.0-1.7) Thyroid Stimulating Hormone (TSH) 1.048 uIU/mL (0.358-3.74) Ethyl Alcohol Level < 10 mg/dL (0-10) Urine Opiates Screen Neg (NEG) Urine Methadone Screen Neg (NEG) Urine Barbiturates Neg (NEG) Urine Phencyclidine Screen Neg (NEG) Urine Amphetamine/Methamphetamine Neg (NEG) Urine Benzodiazepines Screen Neg (NEG) Urine Cocaine Screen Neg (NEG) Urine Cannabinoids Screen Neg (NEG) Urine Ethyl Alcohol Neg (NEG) Lactic Acid Level 0.9 mmol/L (0.4-2.0) Test 03/17/19 03:55 White Blood Count 8.0 x10^3/uL (4.0-11.0) Red Blood Count 5.06 x10^6/uL (3.50-5.40) Hemoglobin 14.3 g/dL (12.0-15.5) Hematocrit 44.5 % (36.0-47.0) Mean Corpuscular Volume 88 fL (79-100) Mean Corpuscular Hemoglobin 28 pg (25-35) Mean Corpuscular Hemoglobin Concent 32 g/dL (31-37) Red Cell Distribution Width 14.7 % (11.5-14.5) Platelet Count 148 x10^3/uL (140-400) Neutrophils (%) (Auto) 45 % (31-73) Lymphocytes (%) (Auto) 42 % (24-48) Monocytes (%) (Auto) 7 % (0-9) Eosinophils (%) (Auto) 5 % (0-3) Basophils (%) (Auto) 1 % (0-3) Neutrophils # (Auto) 3.6 x10^3uL (1.8-7.7) Lymphocytes # (Auto) 3.4 x10^3/uL (1.0-4.8) Monocytes # (Auto) 0.6 x10^3/uL (0.0-1.1) Eosinophils # (Auto) 0.4 x10^3/uL (0.0-0.7) Basophils # (Auto) 0.1 x10^3/uL (0.0-0.2) Sodium Level 143 mmol/L (136-145) Potassium Level 3.8 mmol/L (3.5-5.1) Chloride Level 107 mmol/L (98-107) Carbon Dioxide Level 27 mmol/L (21-32) Anion Gap 9 (6-14) Blood Urea Nitrogen 11 mg/dL (7-20) Creatinine 0.6 mg/dL (0.6-1.0) Estimated GFR (Cockcroft-Gault) 111.9 Glucose Level 80 mg/dL (70-99) Calcium Level 9.9 mg/dL (8.5-10.1) Laboratory Tests Test 03/16/19 16:10 03/16/19 17:30 03/17/19 03:55 Urine Opiates Screen Neg (NEG) Urine Methadone Screen Neg (NEG) Urine Barbiturates Neg (NEG) Urine Phencyclidine Screen Neg (NEG) Urine Amphetamine/Methamphetamine Neg (NEG) Urine Benzodiazepines Screen Neg (NEG) Urine Cocaine Screen Neg (NEG) Urine Cannabinoids Screen Neg (NEG) Urine Ethyl Alcohol Neg (NEG) Lactic Acid Level 0.9 mmol/L (0.4-2.0) Troponin I Quantitative 0.019 ng/mL (0.000-0.055) White Blood Count 8.0 x10^3/uL (4.0-11.0) Red Blood Count 5.06 x10^6/uL (3.50-5.40) Hemoglobin 14.3 g/dL (12.0-15.5) Hematocrit 44.5 % (36.0-47.0) Mean Corpuscular Volume 88 fL (79-100) Mean Corpuscular Hemoglobin 28 pg (25-35) Mean Corpuscular Hemoglobin Concent 32 g/dL (31-37) Red Cell Distribution Width 14.7 % (11.5-14.5) Platelet Count 148 x10^3/uL (140-400) Neutrophils (%) (Auto) 45 % (31-73) Lymphocytes (%) (Auto) 42 % (24-48) Monocytes (%) (Auto) 7 % (0-9) Eosinophils (%) (Auto) 5 % (0-3) Basophils (%) (Auto) 1 % (0-3) Neutrophils # (Auto) 3.6 x10^3uL (1.8-7.7) Lymphocytes # (Auto) 3.4 x10^3/uL (1.0-4.8) Monocytes # (Auto) 0.6 x10^3/uL (0.0-1.1) Eosinophils # (Auto) 0.4 x10^3/uL (0.0-0.7) Basophils # (Auto) 0.1 x10^3/uL (0.0-0.2) Sodium Level 143 mmol/L (136-145) Potassium Level 3.8 mmol/L (3.5-5.1) Chloride Level 107 mmol/L (98-107) Carbon Dioxide Level 27 mmol/L (21-32) Anion Gap 9 (6-14) Blood Urea Nitrogen 11 mg/dL (7-20) Creatinine 0.6 mg/dL (0.6-1.0) Estimated GFR (Cockcroft-Gault) 111.9 Glucose Level 80 mg/dL (70-99) Calcium Level 9.9 mg/dL (8.5-10.1) LEAH ANDRADE MD March 17, 2019 15:37
[2019-03-17] MEDS ORDERED: IV NORMAL SALINE 1000ML BAG 1,000 ML IV ONE (18:15)
--- NOTE | 2019-03-17 18:16 | PDOC ---
PROGRESS NOTES Chief Complaint Chief Complaint Syncopal episode, most likely orthostasis given her poor oral intake and dehydration Moderate dehydration History of gastric bypass. Gastroparesis? Patient with no evidence of central etiology for her symptoms most likely her episode is a result of orthostasis due to poor oral intake. Severe B12 deficiency most likely due to her poor nutritional status Plan: will start b12 supplementatikon will consult Gi follow recommendations from Neuro philatelic consultant. check orthostatis NS fluid resuscitation furhter reocmomenations based on clincal course. Vitals Vitals Vital Signs Date Time Temp Pulse Resp B/P (MAP) Pulse Ox O2 Delivery O2 Flow Rate FiO2 03/17/19 15:00 98.5 64 18 95/60 (72) 96 Room Air 98.5 Physical Exam Lungs: Clear Labs LABS Laboratory Tests Test 03/17/19 03:55 White Blood Count 8.0 x10^3/uL (4.0-11.0) Red Blood Count 5.06 x10^6/uL (3.50-5.40) Hemoglobin 14.3 g/dL (12.0-15.5) Hematocrit 44.5 % (36.0-47.0) Mean Corpuscular Volume 88 fL (79-100) Mean Corpuscular Hemoglobin 28 pg (25-35) Mean Corpuscular Hemoglobin Concent 32 g/dL (31-37) Red Cell Distribution Width 14.7 % (11.5-14.5) Platelet Count 148 x10^3/uL (140-400) Neutrophils (%) (Auto) 45 % (31-73) Lymphocytes (%) (Auto) 42 % (24-48) Monocytes (%) (Auto) 7 % (0-9) Eosinophils (%) (Auto) 5 % (0-3) Basophils (%) (Auto) 1 % (0-3) Neutrophils # (Auto) 3.6 x10^3uL (1.8-7.7) Lymphocytes # (Auto) 3.4 x10^3/uL (1.0-4.8) Monocytes # (Auto) 0.6 x10^3/uL (0.0-1.1) Eosinophils # (Auto) 0.4 x10^3/uL (0.0-0.7) Basophils # (Auto) 0.1 x10^3/uL (0.0-0.2) Sodium Level 143 mmol/L (136-145) Potassium Level 3.8 mmol/L (3.5-5.1) Chloride Level 107 mmol/L (98-107) Carbon Dioxide Level 27 mmol/L (21-32) Anion Gap 9 (6-14) Blood Urea Nitrogen 11 mg/dL (7-20) Creatinine 0.6 mg/dL (0.6-1.0) Estimated GFR (Cockcroft-Gault) 111.9 Glucose Level 80 mg/dL (70-99) Calcium Level 9.9 mg/dL (8.5-10.1) Vitamin B12 Level 186 pg/mL (247-911) Review of Systems Review of Systems as per hpi otherwise 10 point review of system is negative Assessment and Plan Assessmemt and Plan Problems Medical Problems: (1) Dizziness Status: Acute (2) Fall from standing Status: Acute (3) Left-sided weakness Status: Acute Comment Review of Relevant I have reviewed the following items rahul (where applicable) has been applied. Labs Laboratory Tests Test 03/16/19 14:33 03/16/19 14:35 03/16/19 16:10 03/16/19 17:30 Glucose (Fingerstick) 79 mg/dL (70-99) White Blood Count 7.1 x10^3/uL (4.0-11.0) Red Blood Count 5.77 x10^6/uL (3.50-5.40) Hemoglobin 16.3 g/dL (12.0-15.5) Hematocrit 50.6 % (36.0-47.0) Mean Corpuscular Volume 88 fL (79-100) Mean Corpuscular Hemoglobin 28 pg (25-35) Mean Corpuscular Hemoglobin Concent 32 g/dL (31-37) Red Cell Distribution Width 14.6 % (11.5-14.5) Platelet Count 174 x10^3/uL (140-400) Neutrophils (%) (Auto) 60 % (31-73) Lymphocytes (%) (Auto) 28 % (24-48) Monocytes (%) (Auto) 6 % (0-9) Eosinophils (%) (Auto) 4 % (0-3) Basophils (%) (Auto) 1 % (0-3) Neutrophils # (Auto) 4.3 x10^3uL (1.8-7.7) Lymphocytes # (Auto) 2.0 x10^3/uL (1.0-4.8) Monocytes # (Auto) 0.4 x10^3/uL (0.0-1.1) Eosinophils # (Auto) 0.3 x10^3/uL (0.0-0.7) Basophils # (Auto) 0.1 x10^3/uL (0.0-0.2) Prothrombin Time 13.8 SEC (11.7-14.0) Prothromb Time International Ratio 1.1 (0.8-1.1) Activated Partial Thromboplast Time 32 SEC (24-38) Sodium Level 141 mmol/L (136-145) Potassium Level 4.3 mmol/L (3.5-5.1) Chloride Level 105 mmol/L (98-107) Carbon Dioxide Level 27 mmol/L (21-32) Anion Gap 9 (6-14) Blood Urea Nitrogen 12 mg/dL (7-20) Creatinine 0.8 mg/dL (0.6-1.0) Estimated GFR (Cockcroft-Gault) 80.3 BUN/Creatinine Ratio 15 (6-20) Glucose Level 86 mg/dL (70-99) Calcium Level 10.8 mg/dL (8.5-10.1) Magnesium Level 2.0 mg/dL (1.8-2.4) Total Bilirubin 0.8 mg/dL (0.2-1.0) Aspartate Amino Transf (AST/SGOT) 17 U/L (15-37) Alanine Aminotransferase (ALT/SGPT) 15 U/L (14-59) Alkaline Phosphatase 123 U/L (46-116) Creatine Kinase 43 U/L (26-192) Creatine Kinase MB (Mass) < 0.5 ng/mL (0.0-3.6) Creatine Kinase MB Relative Index % (0-4) Troponin I Quantitative < 0.017 ng/mL (0.000-0.055) 0.019 ng/mL (0.000-0.055) NE-Ixt-A-Type Natriuretic Peptide 46 pg/mL (0-124) Total Protein 7.6 g/dL (6.4-8.2) Albumin 3.8 g/dL (3.4-5.0) Albumin/Globulin Ratio 1.0 (1.0-1.7) Thyroid Stimulating Hormone (TSH) 1.048 uIU/mL (0.358-3.74) Ethyl Alcohol Level < 10 mg/dL (0-10) Urine Opiates Screen Neg (NEG) Urine Methadone Screen Neg (NEG) Urine Barbiturates Neg (NEG) Urine Phencyclidine Screen Neg (NEG) Urine Amphetamine/Methamphetamine Neg (NEG) Urine Benzodiazepines Screen Neg (NEG) Urine Cocaine Screen Neg (NEG) Urine Cannabinoids Screen Neg (NEG) Urine Ethyl Alcohol Neg (NEG) Lactic Acid Level 0.9 mmol/L (0.4-2.0) Test 03/17/19 03:55 White Blood Count 8.0 x10^3/uL (4.0-11.0) Red Blood Count 5.06 x10^6/uL (3.50-5.40) Hemoglobin 14.3 g/dL (12.0-15.5) Hematocrit 44.5 % (36.0-47.0) Mean Corpuscular Volume 88 fL (79-100) Mean Corpuscular Hemoglobin 28 pg (25-35) Mean Corpuscular Hemoglobin Concent 32 g/dL (31-37) Red Cell Distribution Width 14.7 % (11.5-14.5) Platelet Count 148 x10^3/uL (140-400) Neutrophils (%) (Auto) 45 % (31-73) Lymphocytes (%) (Auto) 42 % (24-48) Monocytes (%) (Auto) 7 % (0-9) Eosinophils (%) (Auto) 5 % (0-3) Basophils (%) (Auto) 1 % (0-3) Neutrophils # (Auto) 3.6 x10^3uL (1.8-7.7) Lymphocytes # (Auto) 3.4 x10^3/uL (1.0-4.8) Monocytes # (Auto) 0.6 x10^3/uL (0.0-1.1) Eosinophils # (Auto) 0.4 x10^3/uL (0.0-0.7) Basophils # (Auto) 0.1 x10^3/uL (0.0-0.2) Sodium Level 143 mmol/L (136-145) Potassium Level 3.8 mmol/L (3.5-5.1) Chloride Level 107 mmol/L (98-107) Carbon Dioxide Level 27 mmol/L (21-32) Anion Gap 9 (6-14) Blood Urea Nitrogen 11 mg/dL (7-20) Creatinine 0.6 mg/dL (0.6-1.0) Estimated GFR (Cockcroft-Gault) 111.9 Glucose Level 80 mg/dL (70-99) Calcium Level 9.9 mg/dL (8.5-10.1) Vitamin B12 Level 186 pg/mL (247-911) Laboratory Tests Test 03/17/19 03:55 White Blood Count 8.0 x10^3/uL (4.0-11.0) Red Blood Count 5.06 x10^6/uL (3.50-5.40) Hemoglobin 14.3 g/dL (12.0-15.5) Hematocrit 44.5 % (36.0-47.0) Mean Corpuscular Volume 88 fL (79-100) Mean Corpuscular Hemoglobin 28 pg (25-35) Mean Corpuscular Hemoglobin Concent 32 g/dL (31-37) Red Cell Distribution Width 14.7 % (11.5-14.5) Platelet Count 148 x10^3/uL (140-400) Neutrophils (%) (Auto) 45 % (31-73) Lymphocytes (%) (Auto) 42 % (24-48) Monocytes (%) (Auto) 7 % (0-9) Eosinophils (%) (Auto) 5 % (0-3) Basophils (%) (Auto) 1 % (0-3) Neutrophils # (Auto) 3.6 x10^3uL (1.8-7.7) Lymphocytes # (Auto) 3.4 x10^3/uL (1.0-4.8) Monocytes # (Auto) 0.6 x10^3/uL (0.0-1.1) Eosinophils # (Auto) 0.4 x10^3/uL (0.0-0.7) Basophils # (Auto) 0.1 x10^3/uL (0.0-0.2) Sodium Level 143 mmol/L (136-145) Potassium Level 3.8 mmol/L (3.5-5.1) Chloride Level 107 mmol/L (98-107) Carbon Dioxide Level 27 mmol/L (21-32) Anion Gap 9 (6-14) Blood Urea Nitrogen 11 mg/dL (7-20) Creatinine 0.6 mg/dL (0.6-1.0) Estimated GFR (Cockcroft-Gault) 111.9 Glucose Level 80 mg/dL (70-99) Calcium Level 9.9 mg/dL (8.5-10.1) Vitamin B12 Level 186 pg/mL (247-911) Medications Current Medications Ondansetron HCl (Zofran) 4 mg PRN Q4HRS PRN IV NAUSEA/VOMITING; Start 03/16/19 at 16:45 Zolpidem Tartrate (Ambien) 5 mg PRN QHS PRN PO INSOMNIA Last administered on 03/16/19at 21:10; Start 03/16/19 at 16:45 Acetaminophen (Tylenol) 650 mg PRN Q4HRS PRN PO TEMP OVER 100.4F OR MILD PAIN; Start 03/16/19 at 16:45 Clonidine HCl (Catapres) 0.1 mg PRN Q6HRS PRN PO SBP>160 OR DBP>90; Start 03/16/19 at 16:45 Diphenhydramine HCl (Benadryl) 25 mg PRN Q4HRS PRN IVP ITCHING Last administered on 03/16/19at 22:55; Start 03/16/19 at 16:45 Docusate Sodium (Colace) 100 mg PRN BID PRN PO CONSTIPATION; Start 03/16/19 at 16:45 Albuterol Sulfate (Ventolin Neb Soln) 2.5 mg PRN Q4HRS PRN NEB SHORTNESS OF BREATH; Start 03/16/19 at 16:45 Lorazepam (Ativan) 0.5 mg PRN Q4HRS PRN PO ANXIETY / AGITATION Last administered on 03/16/19at 22:52; Start 03/16/19 at 16:45 Acetaminophen/ Hydrocodone Bitart (Lortab 5/325) 1 tab PRN Q6HRS PRN PO MODERATE PAIN; Start 03/16/19 at 16:45; Status Cancel Acetaminophen/ Hydrocodone Bitart (Lortab 5/325) 1 tab PRN Q6HRS PRN PO SEVERE PAIN 7-10 Last administered on 03/17/19at 08:06; Start 03/16/19 at 16:45 Ondansetron HCl (Zofran Odt) 4 mg PRN BID PRN PO NAUSEA/VOMITING; Start 03/16/19 at 16:45 Multivitamins (Thera M Plus) 1 tab DAILY PO Last administered on 03/17/19at 08:05; Start 03/17/19 at 09:00 Non-Formulary Medication (Omeprazole ) 1 cap DAILY PO ; Start 03/17/19 at 09:00; Status UNV Sucralfate (Carafate) 1 gm QIDACHS PO Last administered on 03/17/19at 16:30; Start 03/16/19 at 17:00 Pantoprazole Sodium (Protonix) 40 mg DAILYAC PO Last administered on 03/17/19at 08:00; Start 03/17/19 at 07:30 Non-Formulary Medication ([Pantoprazole] ) 40 mg DAILYAC PO ; Start 03/17/19 at 07:30; Status UNV Ondansetron HCl (Zofran) 4 mg PRN Q8HRS PRN IV NAUSEA/VOMITING; Start 03/16/19 at 17:00; Stop 03/17/19 at 16:59; Status UNV Morphine Sulfate (Morphine Sulfate) 2 mg PRN Q2HR PRN IV PAIN; Start 03/16/19 at 17:00; Stop 03/17/19 at 16:59; Status DC Gadoterate Meglumine (Dotarem) 10 ml 1X ONCE IVP Last administered on 03/16/19at 20:19; Start 03/16/19 at 20:00; Stop 03/16/19 at 20:09; Status DC Gadoterate Meglumine (Dotarem) 10 ml 1X ONCE IVP Last administered on 03/16/19at 20:19; Start 03/16/19 at 20:00; Stop 03/16/19 at 20:09; Status DC Nicotine (Nicoderm Cq 21mg) 1 patch DAILY TD Last administered on 03/17/19at 08:07; Start 03/16/19 at 22:30 Sodium Chloride 1,000 ml @ 125 mls/hr 1X ONCE IV ; Start 03/17/19 at 18:15; Stop 03/18/19 at 02:14 Active Scripts Active [place] 5-325 Tablet (Acetaminophen/Hydrocodone Bitart) 1 Each Tablet 1-2 Each PO PRN Q6HRS PRN as needed for pain Omeprazole 40 Mg Capsule.dr 1 Cap PO DAILY Carafate (Sucralfate) 1 Gm/10 Ml Oral.susp 10 Ml PO BID Hydrocodone-Apap 5-325 (Hydrocodone Bit/Acetaminophen) 1 Tab Tablet 1 Tab PO PRN Q6HRS PRN 3 Days Ondansetron Odt (Ondansetron) 4 Mg Tab.rapdis 4 Mg PO BID PRN [place] 5-325 Tablet (Acetaminophen/Hydrocodone Bitart) 1 Each Tablet 1-2 Each PO PRN Q6HRS PRN as needed for pain [Pantoprazole] 40 MG Tablet.dr 40 Mg PO DAILYAC 30 Days Carafate (Sucralfate) 1 Gm/10 Ml Oral.susp 1 Gm PO QIDACHS 30 Days Reported Multivitamins (Multivitamin) 1 Each Tablet 1 Each PO DAILY Vitals/I & O Vital Sign - Last 24 Hours 03/16/19 03/16/19 03/16/19 03/16/19 18:25 19:00 21:10 23:04 Temp 98.8 96.3 98.8 96.3 Pulse 67 76 86 Resp 20 20 B/P (MAP) 117/78 (91) 110/69 (83) Pulse Ox 98 98 100 O2 Delivery Room Air Room Air Room Air 03/17/19 03/17/19 03/17/19 03/17/19 03:10 07:00 07:00 08:00 Temp 97.9 97.5 97.5 97.9 97.5 97.5 Pulse 66 72 72 Resp 20 18 B/P (MAP) 89/55 (66) 103/61 (75) 103/61 (75) Pulse Ox 95 100 100 O2 Delivery Room Air Room Air Room Air 03/17/19 03/17/19 03/17/19 03/17/19 08:06 09:06 11:00 15:00 Temp 98.5 98.5 Pulse 69 64 Resp 18 18 18 18 B/P (MAP) 108/51 (70) 95/60 (72) Pulse Ox 100 97 96 O2 Delivery Room Air Room Air Room Air Room Air Intake and Output 03/16/19 03/16/19 03/17/19 15:00 23:00 07:00 Output Total 0 ml Balance 0 ml GUANAKO JASSO MD March 17, 2019 18:16
[2019-03-17] MEDS ORDERED: CYANOCOBALAMIN (VITAMIN B-12) 1,000 MCG/ML VIAL IM SCH (19:00)
[2019-03-17] MEDS: LORazepam 0.5 MG TABLET PO PRN (21:56)
[2019-03-17] MEDS: diphenhydrAMINE 50 MG/ML VIAL IVP PRN (21:57)
[2019-03-18] MEDS: HYDROcodone/APAP 5/325MG 1 TAB TABLET PO PRN ×3 (00:20→16:52)
[2019-03-18] MEDS: ZOLPIDEM 5 MG TABLET. PO PRN ×2 (00:21→20:00)
[2019-03-18 03:03] VITALS: BP 90/50
[2019-03-18 07:30] VITALS: BP_SYST 105; BP_SYST 115; BP_DIAS 61; BP_DIAS 77; BP_DIAS 79
[2019-03-18] MEDS: PANTOPRAZOLE 40 MG TABLET.DR. PO SCH (07:30)
[2019-03-18] MEDS: SUCRALFATE 1 GM TABLET. PO SCH ×4 (07:30→20:00)
[2019-03-18] MEDS: NICOTINE 21MG PATCH. TD SCH (09:00)
[2019-03-18] MEDS: MULTIVITAMIN with MINERAL TABLET. PO SCH (09:00)
[2019-03-18] MEDS ORDERED: IV RINGERS,LACTATED 1000ML 1,000 ML IV SCH (09:30)
[2019-03-18] MEDS ORDERED: POLYETHYLENE GLYCOL 3350 17 GM PACKET. PO PRN (10:00)
--- NOTE | 2019-03-18 10:01 | PDOC2 ---
GI CONSULT Reason For Consult: ?Gastroparesis, h/o gastric bypass HPI: HPI: 39 y/o female who we have seen in the past. Came to ER after dizziness and fall w/ left-sided pain. Now reports left arm numbness - neuro following, brain MRI unrevealing except mild paranasal sinus and mastoid disease. Had an EGD in 05/2018 w/ Dr. Cyr for n/v and h/o gastric bypass (says at [facility] in 10/2017) which reveled small gastric pouch and 18mm deep cratered anastomotic ulcer (biopsy was negative for H. pylori but noted focal intestinal metaplasia). Started on PPI and Carafate. Did not follow-up for repeat EGD. Since then has continued w/ abdominal pain (constant, diffuse, worse w/ eating, sometimes "pulling" or "stabbing") and daily vomiting after eating. "I can't eat." Frequently sees red blood in emesis and in stools. Denies diarrhea and constipation. No melena. No dysphagia. Not sure about reflux. She is depressed and anxious - does not have a PCP, says she stays in bed all day and has since surgery. Has seen bariatric surgeon (Dr. Fuentes) for these reasons and for advice re: left-sided ventral hernia - says "they just put me off." Continued pantoprazole and Carafate until she ran out ~3 months ago. Says she initially lost 200 pounds after surgery, more recently thinks she has gone from size 16 to size 14. No abd imaging this admission though has had 3 CTs A/P this year at this facility - reviewed, none with acute findings. S/p cholecystectomy. Past imaging with fatty liver. No pancreas history. No NSAIDs. Reviewed notes from when we last saw her - was eating fast food and vomiting the day of discharge, unclear if she understands appropriate diet post gastric bypass. PMH: PMH: depression/anxiety, anastomotic ulcer, left ventral hernia, hepatic steatosis cholecystectomy, gastric bypass, partial hysterectomy, right rotator cuff repair, tonsillectomy, bladder suspension, ear surgeries FH: Family History: Other (father - at age 45 "from an ulcer") Social History: Smoke: No ALCOHOL: none Drugs: None ROS: GEN: depressed HEENT: Denies blurred vision, sore throat CV: Denies chest pain RESP: Denies shortness of air, cough GI: Per HPI : Denies hematuria, dysuria ENDO: +weight loss NEURO: +left arm numbness MSK: Denies weakness, joint pain/swelling SKIN: Denies jaundice, pruritus Vitals: Vitals: Vital Signs Date Time Temp Pulse Resp B/P (MAP) Pulse Ox O2 Delivery O2 Flow Rate FiO2 03/18/19 09:00 17 Room Air 03/18/19 07:30 97.4 61 105/61 (76) 95 97.4 Labs: Labs: Please see EMR - includes normal Hgb, plt, INR, BUN/Cr, TSH, and LFTs except AP 123. B12 low 186. Allergies: Coded Allergies: Sulfa (Sulfonamide Antibiotics) (Unverified Allergy, Intermediate, hives, 05/11/18) Medications: Current Medications Medications (Trade) Dose Ordered Sig/Marilyn Route PRN Reason Start Time Stop Time Status Last Admin Dose Admin Sodium Chloride 1,000 ml @ 125 mls/hr 1X ONCE IV 03/17/19 18:15 03/18/19 02:14 DC 03/17/19 18:33 Cyanocobalamin (Vitamin B-12) 1,000 mcg WEEKLY IM 03/17/19 19:00 03/17/19 21:57 Imaging: Imaging: Head CT IMPRESSION: No acute intracranial abnormality is detected. CXR IMPRESSION: No radiographic evidence of an acute cardiopulmonary process. Brain MRI Impression: 1. Negative MRI of the brain. 2. Mild paranasal sinus and mastoid disease. 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 Wonder about compliance w/ meds and diet. She asked about colonoscopy - I advised pursuing this as outpt - I do not think could tolerate prep at this time. Hasn't had abd imaging - will check x-ray. Agree w/ PPI and Carafate - additional recs following EGD. Miralax if she wants - previous imaging noted moderate retained stool. BRITTANY MUKHERJEE March 18, 2019 10:01
[2019-03-18] MEDS: POLYETHYLENE GLYCOL 3350 17 GM PACKET. PO SCH (10:30)
[2019-03-18 11:19] VITALS: BP 110/58
--- NOTE | 2019-03-18 12:10 | NUR ---
Patient complained of abdominal pain. Patient requesting IV pain medication. Spoke with Dr. Carey and got an order for Toradol IV. At this time Dr. Carey verbalized not wanting to use narcotics. Medication ordered.
[2019-03-18] MEDS: KETOROLAC 15 MG/ML VIAL. IV PRN ×2 (12:28→19:57)
--- NOTE | 2019-03-18 13:51 | RAD ---
Abdominal series dated 03/18/2019. No comparison available. Clinical data indication: Abdominal pain and nausea vomiting. FINDINGS: Single upright view the chest shows normal heart and mediastinal contours. Lungs are clear. No consolidation or pleural effusion. Postsurgical changes of the right glenoid. Flat and upright views the abdomen show nondilated gas-filled loops of bowel throughout. No abnormal calcification. No air-fluid level or pneumoperitoneum on the upright view. There are suture material in the left upper quadrant. Clips in the right upper quadrant compatible with prior cholecystectomy. IMPRESSION: No acute radiographic abnormality. Nonobstructive bowel gas pattern. Electronically signed by: Dorian Rai MD (03/18/2019 1:47 PM) [facility]
--- NOTE | 2019-03-18 13:55 | NUR ---
SW following pt for anticipated dc needs. Chart reviewed. Pt lives at home with son and PT/OT recommends home with assistance. No other needs noted at this time.
[2019-03-18] MEDS ORDERED: fentaNYL PF VIAL 100 MCG/2 ML VIAL IV PRN ×2 (14:30)
[2019-03-18] MEDS ORDERED: MIDAZOLAM HCL/PF 2 MG/2 ML VIAL. IV PRN (14:30)
[2019-03-18] MEDS ORDERED: LIDOCAINE 1% PF 2 ML VIAL. ID PRN (14:30)
[2019-03-18] MEDS ORDERED: PROPOFOL 20 ML IV ONE (15:11)
[2019-03-18] MEDS ORDERED: LIDOCAINE 2% PF 5 ML VIAL. ONE (15:11)
[2019-03-18] MEDS: IV RINGERS,LACTATED 1000ML 1,000 ML IV SCH (15:18)
--- NOTE | 2019-03-18 15:30 | PDOC4 ---
PROCEDURE Procedure EGD nausea, vomiting, hx of anastomotic ulcer anesthesia with propofol EGD- normal esophagus 5 cm gastric pouch- anastomosis 8 mm ulcer but NO stricture- jejunum efferent was normal Plan- resume carafate needs gastroparetic/bariatric diet treat constipation as well RYDER LEWIS MD March 18, 2019 15:30
--- NOTE | 2019-03-18 16:17 | RAD ---
CT of the cervical spine without contrast, 03/18/2019: HISTORY: Persistent left-sided weakness Noncontrast scans were obtained with multiplanar reconstructions produced. No fracture, subluxation or destructive bony lesion is seen. There are minimal posterior annular bulges at C2-3, C3-4 and C4-5. The posterior disc margins in the lower cervical spine are not clearly defined. There are minimal degenerative changes involving scattered facet joints bilaterally. No significant foraminal or central spinal stenosis is identified. The paraspinal soft tissues are unremarkable. IMPRESSION: 1. Minimal scattered degenerative changes. 2. No acute abnormality is detected. PQRS Compliance Statement: One or more of the following individualized dose reduction techniques were utilized for this examination: 1. Automated exposure control 2. Adjustment of the mA and/or kV according to patient size 3. Use of iterative reconstruction technique Electronically signed by: Caleb Foster MD (03/18/2019 4:14 PM) [facility]
--- NOTE | 2019-03-18 16:19 | PDOC ---
PROGRESS NOTES Assessment Assessment Left side weakness.. Fall. Abdominal pain. Vomiting at times. Hx of gastric bypass about 1.5 years ago. Obesity. No evidence of acute CVA this time. RECOMMENDATIONS/PLAN: C-spine MRI wo contrast or CT. ASA daily. Treat medical diseases. Consulted GI. OT/PT. HISTORY OF THE PRESENT ILLNESS: Patient is a 39-year-old female with past medical history of gastric banding/bypass, unclear which procedure she had 4 gastric reduction. Patient was in her usual state of health until this morning when she was on her way to her son's room and patient told her son that she was "feeling funny". Patient did not have any auditory or AUDITORY aura-type of symptoms. She fell on the floor and she does not remember having chest discomfort headaches palpitations prior to the incident. The patient and had this episode witnessed by her son and no seizure like activity was reported, there is no evidence of tongue trauma, no bowel or urine incontinence reported. patient refers being "jerky" while waking up from the incident. Subsequently she developed numbness sensation over the left side of her body, no slurred speech or droop in her face was reported. She stated she still had left side numbness and weakness on 03/18/19. Past Medical History GI bleeding. Gastric bypass surgery. Obesity. Past Surgical History Cholecystectomy, Tonsillectomy, Hysterectomy, gastric bypass. Family History Non contributory. ALLERGY: Sofa drugs. MEDICATIONS: Refer to MAR SOCIAL HISTORY: Lives at home. Denies smoking, drinking, and illicit drug use. REVIEW OF SYSTEMS: Constitutional: Obese. Head: No traumatic brain or head injury. Skin: No edema, or rash. Ear: No infection. Eyes: No vision loss or color blindness. Nose: No bleeding or purulent discharges. Hearing: No hearing decrease. Neck: No injury. Breast: No history of cancer, masses,or discharges. Cardiac: No [place], arrhythmia. Pulmonary: No COPD. GI: GI bleeding. Urinary/genital: UTI. Endocrinologic: Obesity. Skeletomuscular: No muscular atrophy. Neurological: see HP. Psychiatric: Denies drug use/abuse. Otherwise, not [id number] review of systems. PHYSICAL EXAMINATION: General appearance is in no acute distress. HEENT: Normocephalic and nontraumatic. Eyes, nose, ears, and throat are unremarkable. Neck is supple. No lymphadenopathy. No bruits are heard over the carotid artery. No crepitus. Cardiovascular: S1, S2, regular rate and rhythm. Pulmonary: Clear to auscultation bilaterally. Abdomen: Bowel sounds are positive. Abdomen is soft, nontender, and nondistended. Extremities: No rash, lesions, or edema. No restriction of range of motion NEUROLOGICAL EXAMINATION: Alert Oriented to time, place and person. PERRL. EOMI. CN: no focal findings. Muscle tone: within normal. Muscle strength: 5, left side 5-? Subjective? DTR: 2 Plantar reflex: Flexor response bilaterally Gait: not examined in bed. Sensory exam: no abnormal findings. No cerebellar signs elicited. F-T-N test accurate. Objective Objective Vital Signs Date Time Temp Pulse Resp B/P (MAP) Pulse Ox O2 Delivery O2 Flow Rate FiO2 03/18/19 15:39 97.6 78 18 121/65 Room Air 97.6 03/18/19 14:33 98 Intake and Output 03/18/19 07:00 Output Total 0 ml Balance 0 ml Output Urine Total 0 ml # Voids 3 Vitals Signs Vitals VS - Last 72 Hours, by Label Date Time Temp Pulse Resp B/P (MAP) Pulse Ox O2 Delivery O2 Flow Rate FiO2 03/18/19 15:39 97.6 78 18 121/65 Room Air 97.6 03/18/19 14:33 98.4 67 20 98 98.4 03/18/19 14:32 Room Air 03/18/19 13:55 66 20 116/66 98 Room Air 03/18/19 11:56 98 Room Air 03/18/19 11:19 98.2 66 18 110/58 (75) 97 Room Air 98.2 03/18/19 10:00 16 Room Air 03/18/19 09:00 17 Room Air 03/18/19 08:00 Room Air 03/18/19 07:30 97.4 61 18 105/61 (76) 95 Room Air 97.4 03/18/19 07:30 63 115/77 (90) 03/18/19 07:30 75 115/79 (91) 03/18/19 03:03 97.7 56 16 90/50 (63) 93 Room Air 97.7 03/18/19 01:20 96 03/18/19 00:20 18 Room Air 03/17/19 21:14 98.0 65 16 97 Room Air 98.0 03/17/19 20:00 Room Air 03/17/19 18:32 18 96 Room Air 03/17/19 15:00 98.5 64 18 95/60 (72) 96 Room Air 98.5 03/17/19 11:00 69 18 108/51 (70) 97 Room Air 03/17/19 08:06 18 100 Room Air 03/17/19 08:00 Room Air 03/17/19 07:00 97.5 72 103/61 (75) 100 97.5 03/17/19 07:00 97.5 72 18 103/61 (75) 100 Room Air 97.5 Medication Medications Current Medications Cyanocobalamin (Vitamin B-12) 1,000 mcg WEEKLY IM Last administered on 03/17/19a t 21:57; Start 03/17/19 at 19:00 Fentanyl Citrate (Fentanyl 2ml Vial) 25 mcg PRN Q5MIN PRN IV X 2 DOSES FOR PAIN; Start 03/18/19 at 14:30; Stop 03/19/19 at 14:29 Fentanyl Citrate (Fentanyl 2ml Vial) 50 mcg PRN Q5MIN PRN IV X 2 DOSES FOR PAIN; Start 03/18/19 at 14:30; Stop 03/19/19 at 14:29 Ketorolac Tromethamine (Toradol 15mg Vial) 15 mg PRN Q6HRS PRN IV PAIN Last administered on 03/18/19at 12:28; Start 03/18/19 at 12:30; Stop 03/23/19 at 12:29 Lidocaine HCl (Lidocaine Pf 2% Vial) 5 ml STK-MED ONCE .ROUTE ; Start 03/18/19 at 15:11; Stop 03/18/19 at 15:12; Status DC Lidocaine HCl (Xylocaine-Mpf 1% 2ml Vial) 2 ml 1X PRN PRN ID IV START; Start 03/18/19 at 14:30; Stop 03/19/19 at 14:29 Midazolam HCl (Versed) 2 mg PRN 1X PRN IV PRIOR TO PROCEDURE; Start 03/18/19 at 14:30; Stop 03/19/19 at 14:29 Polyethylene Glycol (miraLAX PACKET) 17 gm DAILY PO ; Start 03/18/19 at 10:30 Polyethylene Glycol (miraLAX PACKET) 17 gm PRN DAILY PRN PO CONSTIPATION; Start 03/18/19 at 10:00 Propofol 20 ml @ As Directed STK-MED ONCE IV ; Start 03/18/19 at 15:11; Stop 03/18/19 at 15:12; Status DC Ringer's Solution 1,000 ml @ 50 mls/hr Q20H IV ; Start 03/18/19 at 09:30; Stop 03/18/19 at 21:29 Ringer's Solution 1,000 ml @ 125 mls/hr Q8H IV Last administered on 03/18/19at 15:18; Start 03/18/19 at 14:17; Stop 03/19/19 at 02:16 Sodium Chloride 1,000 ml @ 125 mls/hr 1X ONCE IV Last administered on 03/17/19at 18:33; Start 03/17/19 at 18:15; Stop 03/18/19 at 02:14; Status DC Comment Review of Relevant I have reviewed the following items rahul (where applicable) has been applied. LEAH ANDRADE MD March 18, 2019 16:18
[2019-03-18 16:27] VITALS: BP 109/76
[2019-03-18] MEDS: LORazepam 0.5 MG TABLET PO PRN (16:53)
--- NOTE | 2019-03-18 17:25 | PDOC ---
PROGRESS NOTES Chief Complaint Chief Complaint Syncopal episode, most likely orthostasis given her poor oral intake and dehydration Moderate dehydration History of gastric bypass. Gastroparesis? Patient with no evidence of central etiology for her symptoms most likely her episode is a result of orthostasis due to poor oral intake. Severe B12 deficiency most likely due to her poor nutritional status Plan: will start b12 supplementatikon will consult Gi follow recommendations from Neuro corporate learning consultant. check orthostatis NS fluid resuscitation furhter reocmomenations based on clincal course. History of Present Illness History of Present Illness Patient feeling pretty much the same unable to eat due to her symptoms. She is scheduled for an endoscopy later in the day reassurance has been provided [place] address to the best of my abilities Vitals Vitals Vital Signs Date Time Temp Pulse Resp B/P (MAP) Pulse Ox O2 Delivery O2 Flow Rate FiO2 03/18/19 16:52 16 Room Air 03/18/19 16:27 98.3 62 109/76 (87) 98 98.3 Physical Exam Physical Exam Gen.: obese in no apparent distress Head: Normal shape atraumatic Eyes: Pupils equal reactive to light and accommodation, normal conjunctivae and lids Ears: Normal shape Nose: Normal shape no trauma Mouth: No exudates of the back of throat no thrush no lesions Neck: Supple no JVD no carotid bruit or lymphadenopathy no thyromegaly Chest: Lungs clear to auscultation with good inspiratory effort no crackles rales or rhonchi Cardiovascular: S1-S2 regular rhythm no murmurs gallops or rubs Abdomen: Bowel sounds present soft nontender no hepatosplenomegaly appreciated sign Extremities: No clubbing no cyanosis no edema peripheral pulses palpated bilaterally Neurological: Alert awake oriented in person time place and situation, cranial nerves II through XII intact, no motor or sensory deficits appreciated Psych: Appropriate mood, cooperative Lungs: Clear Review of Systems Review of Systems History of present illness otherwise 14 point review of system is negative Assessment and Plan Assessmemt and Plan Problems Medical Problems: (1) Dizziness Status: Acute (2) Fall from standing Status: Acute (3) Left-sided weakness Status: Acute Comment Review of Relevant I have reviewed the following items rahul (where applicable) has been applied. Labs Laboratory Tests Test 03/16/19 17:30 03/17/19 03:55 Lactic Acid Level 0.9 mmol/L (0.4-2.0) Troponin I Quantitative 0.019 ng/mL (0.000-0.055) White Blood Count 8.0 x10^3/uL (4.0-11.0) Red Blood Count 5.06 x10^6/uL (3.50-5.40) Hemoglobin 14.3 g/dL (12.0-15.5) Hematocrit 44.5 % (36.0-47.0) Mean Corpuscular Volume 88 fL (79-100) Mean Corpuscular Hemoglobin 28 pg (25-35) Mean Corpuscular Hemoglobin Concent 32 g/dL (31-37) Red Cell Distribution Width 14.7 % (11.5-14.5) Platelet Count 148 x10^3/uL (140-400) Neutrophils (%) (Auto) 45 % (31-73) Lymphocytes (%) (Auto) 42 % (24-48) Monocytes (%) (Auto) 7 % (0-9) Eosinophils (%) (Auto) 5 % (0-3) Basophils (%) (Auto) 1 % (0-3) Neutrophils # (Auto) 3.6 x10^3uL (1.8-7.7) Lymphocytes # (Auto) 3.4 x10^3/uL (1.0-4.8) Monocytes # (Auto) 0.6 x10^3/uL (0.0-1.1) Eosinophils # (Auto) 0.4 x10^3/uL (0.0-0.7) Basophils # (Auto) 0.1 x10^3/uL (0.0-0.2) Sodium Level 143 mmol/L (136-145) Potassium Level 3.8 mmol/L (3.5-5.1) Chloride Level 107 mmol/L (98-107) Carbon Dioxide Level 27 mmol/L (21-32) Anion Gap 9 (6-14) Blood Urea Nitrogen 11 mg/dL (7-20) Creatinine 0.6 mg/dL (0.6-1.0) Estimated GFR (Cockcroft-Gault) 111.9 Glucose Level 80 mg/dL (70-99) Calcium Level 9.9 mg/dL (8.5-10.1) Vitamin B12 Level 186 pg/mL (247-911) Medications Current Medications Ondansetron HCl (Zofran) 4 mg PRN Q4HRS PRN IV NAUSEA/VOMITING; Start 03/16/19 at 16:45 Zolpidem Tartrate (Ambien) 5 mg PRN QHS PRN PO INSOMNIA Last administered on 03/18/19at 00:21; Start 03/16/19 at 16:45 Acetaminophen (Tylenol) 650 mg PRN Q4HRS PRN PO TEMP OVER 100.4F OR MILD PAIN; Start 03/16/19 at 16:45 Clonidine HCl (Catapres) 0.1 mg PRN Q6HRS PRN PO SBP>160 OR DBP>90; Start 03/16/19 at 16:45 Diphenhydramine HCl (Benadryl) 25 mg PRN Q4HRS PRN IVP ITCHING Last administered on 03/17/19at 21:57; Start 03/16/19 at 16:45 Docusate Sodium (Colace) 100 mg PRN BID PRN PO HARD STOOLS; Start 03/16/19 at 16:45 Albuterol Sulfate (Ventolin Neb Soln) 2.5 mg PRN Q4HRS PRN NEB SHORTNESS OF BREATH Last administered on 03/18/19at 11:53; Start 03/16/19 at 16:45 Lorazepam (Ativan) 0.5 mg PRN Q4HRS PRN PO ANXIETY / AGITATION Last adminis tered on 03/18/19at 16:53; Start 03/16/19 at 16:45 Acetaminophen/ Hydrocodone Bitart (Lortab 5/325) 1 tab PRN Q6HRS PRN PO MODER ATE PAIN; Start 03/16/19 at 16:45; Status Cancel Acetaminophen/ Hydrocodone Bitart (Lortab 5/325) 1 tab PRN Q6HRS PRN PO SEVERE PAIN 7-10 Last administered on 03/18/19at 16:52; Start 03/16/19 at 16:45 Ondansetron HCl (Zofran Odt) 4 mg PRN BID PRN PO NAUSEA/VOMITING; Start 03/16/19 at 16:45 Multivitamins (Thera M Plus) 1 tab DAILY PO Last administered on 03/18/19at 09:00; Start 03/17/19 at 09:00 Non-Formulary Medication (Omeprazole ) 1 cap DAILY PO ; Start 03/17/19 at 09:00; Status UNV Sucralfate (Carafate) 1 gm QIDACHS PO Last administered on 03/18/19at 16:40; Start 03/16/19 at 17:00 Pantoprazole Sodium (Protonix) 40 mg DAILYAC PO Last administered on 03/18/19at 07:30; Start 03/17/19 at 07:30 Non-Formulary Medication ([Pantoprazole] ) 40 mg DAILYAC PO ; Start 03/17/19 at 07:30; Status UNV Ondansetron HCl (Zofran) 4 mg PRN Q8HRS PRN IV NAUSEA/VOMITING; Start 03/16/19 at 17:00; Stop 03/17/19 at 16:59; Status UNV Morphine Sulfate (Morphine Sulfate) 2 mg PRN Q2HR PRN IV PAIN; Start 03/16/19 at 17:00; Stop 03/17/19 at 16:59; Status DC Gadoterate Meglumine (Dotarem) 10 ml 1X ONCE IVP Last administered on 03/16/19at 20:19; Start 03/16/19 at 20:00; Stop 03/16/19 at 20:09; Status DC Gadoterate Meglumine (Dotarem) 10 ml 1X ONCE IVP Last administered on at 20:19; Start 03/16/19 at 20:00; Stop 03/16/19 at 20:09; Status DC Nicotine (Nicoderm Cq 21mg) 1 patch DAILY TD Last administered on 03/18/19at 09:00; Start 03/16/19 at 22:30 Sodium Chloride 1,000 ml @ 125 mls/hr 1X ONCE IV Last administered on 03/02 04/20at 18:33; Start 03/17/19 at 18:15; Stop 03/18/19 at 02:14; Status DC Cyanocobalamin (Vitamin B-12) 1,000 mcg WEEKLY IM Last administered on 03/17/19at 21:57; Start 03/17/19 at 19:00 Ringer's Solution 1,000 ml @ 50 mls/hr Q20H IV ; Start 03/18/19 at 09:30; Stop 03/18/19 at 21:29 Polyethylene Glycol (miraLAX PACKET) 17 gm DAILY PO ; Start 03/18/19 at 10:30 Polyethylene Glycol (miraLAX PACKET) 17 gm PRN DAILY PRN PO CONSTIPATION; Start 03/18/19 at 10:00 Ketorolac Tromethamine (Toradol 15mg Vial) 15 mg PRN Q6HRS PRN IV PAIN Last administered on 03/18/19at 12:28; Start 03/18/19 at 12:30; Stop 03/23/19 at 12:29 Midazolam HCl (Versed) 2 mg PRN 1X PRN IV PRIOR TO PROCEDURE; Start 03/18/19 at 14:30; Stop 03/19/19 at 14:29 Fentanyl Citrate (Fentanyl 2ml Vial) 25 mcg PRN Q5MIN PRN IV X 2 DOSES FOR PAIN; Start 03/18/19 at 14:30; Stop 03/19/19 at 14:29 Fentanyl Citrate (Fentanyl 2ml Vial) 50 mcg PRN Q5MIN PRN IV X 2 DOSES FOR PAIN; Start 03/18/19 at 14:30; Stop 03/19/19 at 14:29 Ringer's Solution 1,000 ml @ 125 mls/hr Q8H IV Last administered on 03/18/19at 15:18; Start 03/18/19 at 14:17; Stop 03/19/19 at 02:16 Lidocaine HCl (Xylocaine-Mpf 1% 2ml Vial) 2 ml 1X PRN PRN ID IV START; Start 03/18/19 at 14:30; Stop 03/19/19 at 14:29 Propofol 20 ml @ As Directed STK-MED ONCE IV ; Start 03/18/19 at 15:11; Stop 03/18/19 at 15:12; Status DC Lidocaine HCl (Lidocaine Pf 2% Vial) 5 ml STK-MED ONCE .ROUTE ; Start 03/18/19 at 15:11; Stop 03/18/19 at 15:12; Status DC Active Scripts Active [place] 5-325 Tablet (Acetaminophen/Hydrocodone Bitart) 1 Each Tablet 1-2 Each PO PRN Q6HRS PRN as needed for pain Omeprazole 40 Mg Capsule.dr 1 Cap PO DAILY Carafate (Sucralfate) 1 Gm/10 Ml Oral.susp 10 Ml PO BID Hydrocodone-Apap 5-325 (Hydrocodone Bit/Acetaminophen) 1 Tab Tablet 1 Tab PO PRN Q6HRS PRN 3 Days Ondansetron Odt (Ondansetron) 4 Mg Tab.rapdis 4 Mg PO BID PRN [place] 5-325 Tablet (Acetaminophen/Hydrocodone Bitart) 1 Each Tablet 1-2 Each PO PRN Q6HRS PRN as needed for pain [Pantoprazole] 40 MG Tablet.dr 40 Mg PO DAILYAC 30 Days Carafate (Sucralfate) 1 Gm/10 Ml Oral.susp 1 Gm PO QIDACHS 30 Days Reported Multivitamins (Multivitamin) 1 Each Tablet 1 Each PO DAILY Vitals/I & O Vital Sign - Last 24 Hours 03/17/19 03/17/19 03/17/19 03/18/19 18:32 20:00 21:14 00:20 Temp 98.0 98.0 Pulse 65 Resp 18 16 18 Pulse Ox 96 97 O2 Delivery Room Air Room Air Room Air Room Air 03/18/19 03/18/19 03/18/19 03/18/19 01:20 03:03 07:30 07:30 Temp 97.7 97.7 Pulse 56 75 63 Resp 16 B/P (MAP) 90/50 (63) 115/79 (91) 115/77 (90) Pulse Ox 96 93 O2 Delivery Room Air 03/18/19 03/18/19 03/18/19 03/18/19 07:30 08:00 09:00 10:00 Temp 97.4 97.4 Pulse 61 Resp 18 17 16 B/P (MAP) 105/61 (76) Pulse Ox 95 O2 Delivery Room Air Room Air Room Air Room Air 03/18/19 03/18/19 03/18/19 03/18/19 11:19 11:56 13:55 14:32 Temp 98.2 98.2 Pulse 66 66 Resp 18 20 B/P (MAP) 110/58 (75) 116/66 Pulse Ox 97 98 98 O2 Delivery Room Air Room Air Room Air Room Air 03/18/19 03/18/19 03/18/19 03/18/19 14:33 15:39 16:27 16:52 Temp 98.4 97.6 98.3 98.4 97.6 98.3 Pulse 67 78 62 Resp 20 18 18 16 B/P (MAP) 121/65 109/76 (87) Pulse Ox 98 98 O2 Delivery Room Air Room Air Room Air Intake and Output 03/17/19 03/17/19 03/18/19 15:00 23:00 07:00 Output Total 0 ml Balance 0 ml GUANAKO JASSO MD March 18, 2019 17:25
--- NOTE | 2019-03-18 18:32 | NUR ---
Patient requesting Xanax in place of Ativan. Reports Ativan is not effective. Spoke to Dr. Carey. He requested me to verify dose with patient's preferred pharmacy. Spoke to Tiffanie at [facility] pharmacy, medication not on patient's profile. When patient was asked about preferred pharmacy she confirmed [facility]. When I told the patient we needed to verify her Xanax dose with her pharmacy, she told me she had not received the Xanax since leaving [place] about 1 year ago. Patient reports that the pharmacy there no longer exists. No changes made at this time. Dr. Carey notified.
[2019-03-18 19:00] VITALS: BP 104/64
[2019-03-18] MEDS: diphenhydrAMINE 50 MG/ML VIAL IVP PRN (19:59)
[2019-03-18 23:00] VITALS: BP 100/65
[2019-03-19] VITALS (8 sets, daily range): BP systolic 90–128; BP diastolic 53–81
[2019-03-19] MEDS: HYDROcodone/APAP 5/325MG 1 TAB TABLET PO PRN ×3 (00:11→15:05)
[2019-03-19] MEDS: diphenhydrAMINE 50 MG/ML VIAL IVP PRN ×2 (00:11→21:35)
[2019-03-19] MEDS: IV RINGERS,LACTATED 1000ML 1,000 ML IV SCH (00:12)
[2019-03-19] MEDS: LORazepam 0.5 MG TABLET PO PRN ×4 (00:24→21:33)
[2019-03-19] MEDS: KETOROLAC 15 MG/ML VIAL. IV PRN ×3 (03:41→17:04)
[2019-03-19] MEDS: SUCRALFATE 1 GM TABLET. PO SCH ×4 (07:56→21:32)
[2019-03-19] MEDS: MULTIVITAMIN with MINERAL TABLET. PO SCH (07:56)
[2019-03-19] MEDS: PANTOPRAZOLE 40 MG TABLET.DR. PO SCH (07:56)
[2019-03-19] MEDS: POLYETHYLENE GLYCOL 3350 17 GM PACKET. PO SCH (07:56)
[2019-03-19] MEDS: NICOTINE 21MG PATCH. TD SCH (07:57)
--- NOTE | 2019-03-19 13:38 | PDOC ---
G I PROGRESS NOTE Subjective Some epigastric discomfort. Feels need to stool. Objective EGD note reviewed. Physical Exam Lungs clear. RRR Abdomen soft, not distended. Mild epigastric tenderness. Review of Relevant I have reviewed the following items rahul (where applicable) has been applied. Medications Current Medications Ondansetron HCl (Zofran) 4 mg PRN Q4HRS PRN IV NAUSEA/VOMITING; Start 03/16/19 at 16:45 Zolpidem Tartrate (Ambien) 5 mg PRN QHS PRN PO INSOMNIA Last administered on 03/18/19at 20:00; Start 03/16/19 at 16:45 Acetaminophen (Tylenol) 650 mg PRN Q4HRS PRN PO TEMP OVER 100.4F OR MILD PAIN; Start 03/16/19 at 16:45 Clonidine HCl (Catapres) 0.1 mg PRN Q6HRS PRN PO SBP>160 OR DBP>90; Start 03/16/19 at 16:45 Diphenhydramine HCl (Benadryl) 25 mg PRN Q4HRS PRN IVP ITCHING Last administered on 03/19/19at 00:11; Start 03/16/19 at 16:45 Docusate Sodium (Colace) 100 mg PRN BID PRN PO HARD STOOLS; Start 03/16/19 at 16:45 Albuterol Sulfate (Ventolin Neb Soln) 2.5 mg PRN Q4HRS PRN NEB SHORTNESS OF BREATH Last administered on 03/18/19at 11:53; Start 03/16/19 at 16:45 Lorazepam (Ativan) 0.5 mg PRN Q4HRS PRN PO ANXIETY / AGITATION Last administered on 03/19/19at 12:45; Start 03/16/19 at 16:45 Acetaminophen/ Hydrocodone Bitart (Lortab 5/325) 1 tab PRN Q6HRS PRN PO MODERATE PAIN; Start 03/16/19 at 16:45; Status Cancel Acetaminophen/ Hydrocodone Bitart (Lortab 5/325) 1 tab PRN Q6HRS PRN PO SEVERE PAIN 7-10 Last administered on 03/19/19at 08:35; Start 03/16/19 at 16:45 Ondansetron HCl (Zofran Odt) 4 mg PRN BID PRN PO NAUSEA/VOMITING; Start 03/16/19 at 16:45 Multivitamins (Thera M Plus) 1 tab DAILY PO Last administered on 03/19/19at 07:56; Start 03/17/19 at 09:00 Non-Formulary Medication (Omeprazole ) 1 cap DAILY PO ; Start 03/17/19 at 09:00; Status UNV Sucralfate (Carafate) 1 gm QIDACHS PO Last administered on 03/19/19at 10:51; Start 03/16/19 at 17:00 Pantoprazole Sodium (Protonix) 40 mg DAILYAC PO Last administered on 03/19/19at 07:56; Start 03/17/19 at 07:30 Non-Formulary Medication ([Pantoprazole] ) 40 mg DAILYAC PO ; Start 03/17/19 at 07:30; Status UNV Ondansetron HCl (Zofran) 4 mg PRN Q8HRS PRN IV NAUSEA/VOMITING; Start 03/16/19 at 17:00; Stop 03/17/19 at 16:59; Status UNV Morphine Sulfate (Morphine Sulfate) 2 mg PRN Q2HR PRN IV PAIN; Start 03/16/19 at 17:00; Stop 03/17/19 at 16:59; Status DC Gadoterate Meglumine (Dotarem) 10 ml 1X ONCE IVP Last administered on 03/02 20:19; Start 03/16/19 at 20:00; Stop 03/16/19 at 20:09; Status DC Gadoterate Meglumine (Dotarem) 10 ml 1X ONCE IVP Last administered on 03/16/19at 20:19; Start 03/16/19 at 20:00; Stop 03/16/19 at 20:09; Status DC Nicotine (Nicoderm Cq 21mg) 1 patch DAILY TD Last administered on 03/19/19at 07:57; Start 03/16/19 at 22:30 Sodium Chloride 1,000 ml @ 125 mls/hr 1X ONCE IV Last administered on 03/17/19at 18:33; Start 03/17/19 at 18:15; Stop 03/18/19 at 02:14; Status DC Cyanocobalamin (Vitamin B-12) 1,000 mcg WEEKLY IM Last administered on 03/17/19at 21:57; Start 03/17/19 at 19:00 Ringer's Solution 1,000 ml @ 50 mls/hr Q20H IV ; Start 03/18/19 at 09:30; Stop 03/18/19 at 21:29; Status DC Polyethylene Glycol (miraLAX PACKET) 17 gm DAILY PO Last administered on 03/19/19at 07:56; Start 03/18/19 at 10:30 Polyethylene Glycol (miraLAX PACKET) 17 gm PRN DAILY PRN PO CONSTIPATION; S tart 03/18/19 at 10:00 Ketorolac Tromethamine (Toradol 15mg Vial) 15 mg PRN Q6HRS PRN IV PAIN Last administered on 03/19/19at 10:52; Start 03/18/19 at 12:30; Stop 03/23/19 at 12:29 Midazolam HCl (Versed) 2 mg PRN 1X PRN IV PRIOR TO PROCEDURE; Start 03/18/19 at 14:30; Stop 03/19/19 at 14:29 Fentanyl Citrate (Fentanyl 2ml Vial) 25 mcg PRN Q5MIN PRN IV X 2 DOSES FOR PAIN; Start 03/18/19 at 14:30; Stop 03/19/19 at 14:29 Fentanyl Citrate (Fentanyl 2ml Vial) 50 mcg PRN Q5MIN PRN IV X 2 DOSES FOR PAIN; Start 03/18/19 at 14:30; Stop 03/19/19 at 14:29 Ringer's Solution 1,000 ml @ 125 mls/hr Q8H IV Last administered on 03/19/19at 00:12; Start 03/18/19 at 14:17; Stop 03/19/19 at 02:16; Status DC Lidocaine HCl (Xylocaine-Mpf 1% 2ml Vial) 2 ml 1X PRN PRN ID IV START; Start 03/18/19 at 14:30; Stop 03/19/19 at 14:29 Propofol 20 ml @ As Directed STK-MED ONCE IV ; Start 03/18/19 at 15:11; Stop 03/18/19 at 15:12; Status DC Lidocaine HCl (Lidocaine Pf 2% Vial) 5 ml STK-MED ONCE .ROUTE ; Start 03/18/19 at 15:11; Stop 03/18/19 at 15:12; Status DC Active Scripts Active [place] 5-325 Tablet (Acetaminophen/Hydrocodone Bitart) 1 Each Tablet 1-2 Each PO PRN Q6HRS PRN as needed for pain Omeprazole 40 Mg Capsule.dr 1 Cap PO DAILY Carafate (Sucralfate) 1 Gm/10 Ml Oral.susp 10 Ml PO BID Hydrocodone-Apap 5-325 (Hydrocodone Bit/Acetaminophen) 1 Tab Tablet 1 Tab PO PRN Q6HRS PRN 3 Days Ondansetron Odt (Ondansetron) 4 Mg Tab.rapdis 4 Mg PO BID PRN [place] 5-325 Tablet (Acetaminophen/Hydrocodone Bitart) 1 Each Tablet 1-2 Each PO PRN Q6HRS PRN as needed for pain [Pantoprazole] 40 MG Tablet.dr 40 Mg PO DAILYAC 30 Days Carafate (Sucralfate) 1 Gm/10 Ml Oral.susp 1 Gm PO QIDACHS 30 Days Reported Multivitamins (Multivitamin) 1 Each Tablet 1 Each PO DAILY Vitals/I & O Vital Sign - Last 24 Hours 03/18/19 03/18/19 03/18/19 03/18/19 13:55 14:32 14:33 15:39 Temp 98.4 97.6 98.4 97.6 Pulse 66 67 78 Resp 20 20 18 B/P (MAP) 116/66 121/65 Pulse Ox 98 98 O2 Delivery Room Air Room Air Room Air 03/18/19 03/18/19 03/18/19 03/18/19 16:27 16:52 19:00 20:00 Temp 98.3 98.0 98.3 98.0 Pulse 62 75 Resp 18 16 16 B/P (MAP) 109/76 (87) 104/64 (77) Pulse Ox 98 93 O2 Delivery Room Air Room Air Room Air Room Air 03/18/19 03/19/19 03/19/19 03/19/19 23:00 00:11 01:11 03:00 Temp 98.1 98.5 98.1 98.5 Pulse 69 65 Resp 18 17 17 16 B/P (MAP) 100/65 (77) 90/56 (67) Pulse Ox 95 95 O2 Delivery Room Air Room Air Room Air 03/19/19 03/19/19 03/19/19 03/19/19 07:50 07:50 07:50 08:24 Temp 97.6 97.6 Pulse 53 54 54 Resp 20 B/P (MAP) 108/65 (79) 126/81 (96) 120/76 (91) Pulse Ox 98 O2 Delivery Room Air Room Air 03/19/19 03/19/19 03/19/19 08:35 10:15 11:00 Temp 97.7 97.7 Pulse 59 Resp 18 B/P (MAP) 98/63 (75) Pulse Ox 96 O2 Delivery Room Air Room Air Room Air Intake and Output 03/18/19 03/18/19 03/19/19 15:00 23:00 07:00 Intake Total 100 ml 100 ml Balance 100 ml 100 ml Problem List Problems Medical Problems: (1) Dizziness Status: Acute (2) Fall from standing Status: Acute (3) Left-sided weakness Status: Acute Assessment S/p Laura with small anastomotic ulcer. Don't know that this impacts on symptoms all that much.\\ GERD highly suspect. "Constipation" Plan of Care Note Continue as now. Try bisacodyl po. DEANNA ROBERTS MD March 19, 2019 13:38
[2019-03-19] MEDS ORDERED: BISACODYL 5 MG TABLET.DR. PO ONE (13:45)
--- NOTE | 2019-03-19 15:50 | PDOC ---
PROGRESS NOTES Assessment Assessment Left side weakness. Fall. Abdominal pain. Vomiting at times. Hx of gastric bypass about 1.5 years ago. Obesity. No evidence of acute CVA this time. No evidence of C-cord disease on CCT. RECOMMENDATIONS/PLAN: LP for CSF exam. ASA daily. Treat medical diseases. Consulted GI. OT/PT. HISTORY OF THE PRESENT ILLNESS: Patient is a 39-year-old female with past medical history of gastric band ing/bypass, unclear which procedure she had 4 gastric reduction. Patient was in her usual state of health until this morning when she was on her way to her son's room and patient told her son that she was "feeling funny". Patient did not have any auditory or AUDITORY aura-type of symptoms. She fell on the floor and she does not remember having chest discomfort headaches palpitations prior to the incident. The patient and had this episode witnessed by her son and no seizure like activity was reported, there is no evidence of tongue trauma, no bowel or urine incontinence reported. patient refers being "jerky" while waking up from the incident. Subsequently she developed numbness sensation over the left side of her body, no slurred speech or droop in her face was reported. She stated she still had left side numbness and weakness on 03/19/19. Past Medical History GI bleeding. Gastric bypass surgery. Obesity. Past Surgical History Cholecystectomy, Tonsillectomy, Hysterectomy, gastric bypass. Family History Non contributory. ALLERGY: Sofa drugs. MEDICATIONS: Refer to MAR SOCIAL HISTORY: Lives at home. Denies smoking, drinking, and illicit drug use. REVIEW OF SYSTEMS: Constitutional: Obese. Head: No traumatic brain or head injury. Skin: No edema, or rash. Ear: No infection. Eyes: No vision loss or color blindness. Nose: No bleeding or purulent discharges. Hearing: No hearing decrease. Neck: No injury. Breast: No history of cancer, masses,or discharges. Cardiac: No MS, arrhythmia. Pulmonary: No COPD. GI: GI bleeding. Urinary/genital: UTI. Endocrinologic: Obesity. Skeletomuscular: No muscular atrophy. Neurological: see HP. Psychiatric: Denies drug use/abuse. Otherwise, not [id number] review of systems. PHYSICAL EXAMINATION: General appearance is in no acute distress. HEENT: Normocephalic and nontraumatic. Eyes, nose, ears, and throat are unremarkable. Neck is supple. No lymphadenopathy. No bruits are heard over the carotid artery. No crepitus. Cardiovascular: S1, S2, regular rate and rhythm. Pulmonary: Clear to auscultation bilaterally. Abdomen: Bowel sounds are positive. Abdomen is soft, nontender, and nondistended. Extremities: No rash, lesions, or edema. No restriction of range of motion NEUROLOGICAL EXAMINATION: Alert Oriented to time, place and person. PERRL. EOMI. CN: no focal findings. Muscle tone: within normal. Muscle strength: 5, left side 5-? Subjective? DTR: 2 Plantar reflex: Flexor response bilaterally Gait: not examined in bed. Sensory exam: no abnormal findings. No cerebellar signs elicited. F-T-N test accurate. Objective Objective Vital Signs Date Time Temp Pulse Resp B/P (MAP) Pulse Ox O2 Delivery O2 Flow Rate FiO2 03/19/19 15:05 Room Air 03/19/19 15:00 98.6 56 18 124/79 (94) 97 98.6 Intake and Output 03/19/19 07:00 Intake Total 200 ml Balance 200 ml Intake Oral 200 ml # Voids 2 Vitals Signs Vitals VS - Last 72 Hours, by Label Date Time Temp Pulse Resp B/P (MAP) Pulse Ox O2 Delivery O2 Flow Rate FiO2 03/19/19 15:05 Room Air 03/19/19 15:00 98.6 56 18 124/79 (94) 97 Room Air 98.6 03/19/19 11:00 97.7 59 18 98/63 (75) 96 Room Air 97.7 03/19/19 10:15 Room Air 03/19/19 08:35 Room Air 03/19/19 08:24 Room Air 03/19/19 07:50 54 120/76 (91) 03/19/19 07:50 54 126/81 (96) 03/19/19 07:50 97.6 53 20 108/65 (79) 98 Room Air 97.6 03/19/19 03:00 98.5 65 16 90/56 (67) 95 Room Air 98.5 03/19/19 01:11 17 03/19/19 00:11 17 Room Air 03/18/19 23:00 98.1 69 18 100/65 (77) 95 Room Air 98.1 03/18/19 20:00 Room Air 03/18/19 19:00 98.0 75 16 104/64 (77) 93 Room Air 98.0 03/18/19 16:52 16 Room Air 03/18/19 16:27 98.3 62 18 109/76 (87) 98 Room Air 98.3 03/18/19 15:39 97.6 78 18 121/65 Room Air 97.6 03/18/19 14:33 98.4 67 20 98 98.4 03/18/19 14:32 Room Air 03/18/19 13:55 66 20 116/66 98 Room Air 03/18/19 11:56 98 Room Air 03/18/19 11:19 98.2 66 18 110/58 (75) 97 Room Air 98.2 03/18/19 09:00 17 Room Air 03/18/19 08:00 Room Air 03/18/19 07:30 97.4 61 18 105/61 (76) 95 Room Air 97.4 03/18/19 07:30 63 115/77 (90) 03/18/19 07:30 75 115/79 (91) Medication Medications Current Medications Bisacodyl (Dulcolax Tab) 10 mg 1X ONCE PO Last administered on 03/19/19at 15:05; Start 03/19/19 at 13:45; Stop 03/19/19 at 13:46; Status DC Comment Review of Relevant I have reviewed the following items rahul (where applicable) has been applied. LEAH ANDRADE MD March 19, 2019 15:49
--- NOTE | 2019-03-19 17:39 | PDOC ---
PROGRESS NOTES Chief Complaint Chief Complaint Syncopal episode, most likely orthostasis given her poor oral intake and dehydration Moderate dehydration History of gastric bypass. Gastroparesis? Patient with no evidence of central etiology for her symptoms most likely her episode is a result of orthostasis due to poor oral intake. Severe B12 deficiency most likely due to her poor nutritional status Plan: continue with b12 supplementation bisacodyl as per GI follow recommendations from [facility] consultant. reassess in the am History of Present Illness History of Present Illness Patient feeling about the same she says, no new complaints, will wait for recommendations from GI hopefully discharge in the next 24 hours. Vitals Vitals Vital Signs Date Time Temp Pulse Resp B/P (MAP) Pulse Ox O2 Delivery O2 Flow Rate FiO2 03/19/19 17:02 Room Air 03/19/19 15:00 98.6 56 18 124/79 (94) 97 98.6 Physical Exam Physical Exam Gen.: obese in no apparent distress Head: Normal shape atraumatic Eyes: Pupils equal reactive to light and accommodation, normal conjunctivae and lids Ears: Normal shape Nose: Normal shape no trauma Mouth: No exudates of the back of throat no thrush no lesions Neck: Supple no JVD no carotid bruit or lymphadenopathy no thyromegaly Chest: Lungs clear to auscultation with good inspiratory effort no crackles rales or rhonchi Cardiovascular: S1-S2 regular rhythm no murmurs gallops or rubs Abdomen: Bowel sounds present soft nontender no hepatosplenomegaly appreciated sign Extremities: No clubbing no cyanosis no edema peripheral pulses palpated bilaterally Neurological: Alert awake oriented in person time place and situation, cranial nerves II through XII intact, no motor or sensory deficits appreciated Psych: Appropriate mood, cooperative Lungs: Clear Review of Systems Review of Systems pertinent as per hpi otherwise negative. Assessment and Plan Assessmemt and Plan Problems Medical Problems: (1) Dizziness Status: Acute (2) Fall from standing Status: Acute (3) Left-sided weakness Status: Acute Comment Review of Relevant I have reviewed the following items rahul (where applicable) has been applied. Medications Current Medications Ondansetron HCl (Zofran) 4 mg PRN Q4HRS PRN IV NAUSEA/VOMITING; Start 03/16/19 at 16:45 Zolpidem Tartrate (Ambien) 5 mg PRN QHS PRN PO INSOMNIA Last administered on 03/18/19at 20:00; Start 03/16/19 at 16:45 Acetaminophen (Tylenol) 650 mg PRN Q4HRS PRN PO TEMP OVER 100.4F OR MILD PAIN; Start 03/16/19 at 16:45 Clonidine HCl (Catapres) 0.1 mg PRN Q6HRS PRN PO SBP>160 OR DBP>90; Start at 16:45 Diphenhydramine HCl (Benadryl) 25 mg PRN Q4HRS PRN IVP ITCHING Last administered on 03/19/19at 00:11; Start 03/16/19 at 16:45 Docusate Sodium (Colace) 100 mg PRN BID PRN PO HARD STOOLS; Start 03/16/19 at 16:45 Albuterol Sulfate (Ventolin Neb Soln) 2.5 mg PRN Q4HRS PRN NEB SHORTNESS OF BREATH Last administered on 03/18/19at 11:53; Start 03/16/19 at 16:45 Lorazepam (Ativan) 0.5 mg PRN Q4HRS PRN PO ANXIETY / AGITATION Last administered on 03/19/19at 17:04; Start 03/16/19 at 16:45 Acetaminophen/ Hydrocodone Bitart (Lortab 5/325) 1 tab PRN Q6HRS PRN PO MODERATE PAIN; Start 03/16/19 at 16:45; Status Cancel Acetaminophen/ Hydrocodone Bitart (Lortab 5/325) 1 tab PRN Q6HRS PRN PO SEVERE PAIN 7-10 Last administered on 03/19/19at 15:05; Start 03/16/19 at 16:45 Ondansetron HCl (Zofran Odt) 4 mg PRN BID PRN PO NAUSEA/VOMITING; Start 03/16/19 at 16:45 Multivitamins (Thera M Plus) 1 tab DAILY PO Last administered on 03/19/19at 07:56; Start 03/17/19 at 09:00 Non-Formulary Medication (Omeprazole ) 1 cap DAILY PO ; Start 03/17/19 at 09:00; Status UNV Sucralfate (Carafate) 1 gm QIDACHS PO Last administered on 03/19/19at 17:02; Start 03/16/19 at 17:00 Pantoprazole Sodium (Protonix) 40 mg DAILYAC PO Last administered on 03/19/19at 07:56; Start 03/17/19 at 07:30 Non-Formulary Medication ([Pantoprazole] ) 40 mg DAILYAC PO ; Start 03/17/19 at 07:30; Status UNV Ondansetron HCl (Zofran) 4 mg PRN Q8HRS PRN IV NAUSEA/VOMITING; Start 03/16/19 at 17:00; Stop 03/17/19 at 16:59; Status UNV Morphine Sulfate (Morphine Sulfate) 2 mg PRN Q2HR PRN IV PAIN; Start 03/16/19 at 17:00; Stop 03/17/19 at 16:59; Status DC Gadoterate Meglumine (Dotarem) 10 ml 1X ONCE IVP Last administered on 03/16/19at 20:19; Start 03/16/19 at 20:00; Stop 03/16/19 at 20:09; Status DC Gadoterate Meglumine (Dotarem) 10 ml 1X ONCE IVP Last administered on 03/16/19at 20:19; Start 03/16/19 at 20:00; Stop 03/16/19 at 20:09; Status DC Nicotine (Nicoderm Cq 21mg) 1 patch DAILY TD Last administered on 03/19/19at 07:57; Start 03/16/19 at 22:30 Sodium Chloride 1,000 ml @ 125 mls/hr 1X ONCE IV Last administered on 03/17/19at 18:33; Start 03/17/19 at 18:15; Stop 03/18/19 at 02:14; Status DC Cyanocobalamin (Vitamin B-12) 1,000 mcg WEEKLY IM Last administered on 03/17/19at 21:57; Start 03/17/19 at 19:00 Ringer's Solution 1,000 ml @ 50 mls/hr Q20H IV ; Start 03/18/19 at 09:30; Stop 03/18/19 at 21:29; Status DC Polyethylene Glycol (miraLAX PACKET) 17 gm DAILY PO Last administered on 03/19/19at 07:56; Start 03/18/19 at 10:30 Polyethylene Glycol (miraLAX PACKET) 17 gm PRN DAILY PRN PO CONSTIPATION; Start 03/18/19 at 10:00 Ketorolac Tromethamine (Toradol 15mg Vial) 15 mg PRN Q6HRS PRN IV PAIN Last administered on 03/19/19at 17:04; Start 03/18/19 at 12:30; Stop 03/23/19 at 12:29 Midazolam HCl (Versed) 2 mg PRN 1X PRN IV PRIOR TO PROCEDURE; Start 03/18/19 at 14:30; Stop 03/19/19 at 14:29; Status DC Fentanyl Citrate (Fentanyl 2ml Vial) 25 mcg PRN Q5MIN PRN IV X 2 DOSES FOR PAIN; Start 03/18/19 at 14:30; Stop 03/19/19 at 14:29; Status DC Fentanyl Citrate (Fentanyl 2ml Vial) 50 mcg PRN Q5MIN PRN IV X 2 DOSES FOR PAIN; Start 03/18/19 at 14:30; Stop 03/19/19 at 14:29; Status DC Ringer's Solution 1,000 ml @ 125 mls/hr Q8H IV Last administered on 03/19/19at 00:12; Start 03/18/19 at 14:17; Stop 03/19/19 at 02:16; Status DC Lidocaine HCl (Xylocaine-Mpf 1% 2ml Vial) 2 ml 1X PRN PRN ID IV START; Start 03/18/19 at 14:30; Stop 03/19/19 at 14:29; Status DC Propofol 20 ml @ As Directed STK-MED ONCE IV ; Start 03/18/19 at 15:11; Stop 03/18/19 at 15:12; Status DC Lidocaine HCl (Lidocaine Pf 2% Vial) 5 ml STK-MED ONCE .ROUTE ; Start 03/18/19 at 15:11; Stop 03/18/19 at 15:12; Status DC Bisacodyl (Dulcolax Tab) 10 mg 1X ONCE PO Last administered on 03/19/19at 15:05; Start 03/19/19 at 13:45; Stop 03/19/19 at 13:46; Status DC Active Scripts Active [place] 5-325 Tablet (Acetaminophen/Hydrocodone Bitart) 1 Each Tablet 1-2 Each PO PRN Q6HRS PRN as needed for pain Omeprazole 40 Mg Capsule.dr 1 Cap PO DAILY Carafate (Sucralfate) 1 Gm/10 Ml Oral.susp 10 Ml PO BID Hydrocod[place]-Apap 5-325 (Hydrocodone Bit/Acetaminophen) 1 Tab Tablet 1 Tab PO PRN Q6HRS PRN 3 Days Ondansetron Odt (Ondansetron) 4 Mg Tab.rapdis 4 Mg PO BID PRN [place] 5-325 Tablet (Acetaminophen/Hydrocodone Bitart) 1 Each Tablet 1-2 Each PO PRN Q6HRS PRN as needed for pain [Pantoprazole] 40 MG Tablet.dr 40 Mg PO DAILYAC 30 Days Carafate (Sucralfate) 1 Gm/10 Ml Oral.susp 1 Gm PO QIDACHS 30 Days Reported Multivitamins (Multivitamin) 1 Each Tablet 1 Each PO DAILY Vitals/I & O Vital Sign - Last 24 Hours 03/18/19 03/18/19 03/18/19 03/19/19 19:00 20:00 23:00 00:11 Temp 98.0 98.1 98.0 98.1 Pulse 75 69 Resp 16 18 17 B/P (MAP) 104/64 (77) 100/65 (77) Pulse Ox 93 95 O2 Delivery Room Air Room Air Room Air Room Air 03/19/19 03/19/19 03/19/19 03/19/19 01:11 03:00 07:50 07:50 Temp 98.5 97.6 98.5 97.6 Pulse 65 53 54 Resp 17 16 20 B/P (MAP) 90/56 (67) 108/65 (79) 126/81 (96) Pulse Ox 95 98 O2 Delivery Room Air Room Air 03/19/19 03/19/19 03/19/19 03/19/19 07:50 08:24 08:35 11:00 Temp 97.7 97.7 Pulse 54 59 Resp 18 B/P (MAP) 120/76 (91) 98/63 (75) Pulse Ox 96 O2 Delivery Room Air Room Air Room Air 03/19/19 03/19/19 03/19/19 15:00 15:05 17:02 Temp 98.6 98.6 Pulse 56 Resp 18 B/P (MAP) 124/79 (94) Pulse Ox 97 O2 Delivery Room Air Room Air Room Air Intake and Output 03/18/19 03/18/19 03/19/19 14:59 22:59 06:59 Intake Total 100 ml 100 ml Balance 100 ml 100 ml FARELA,MISA MD March 19, 2019 17:39
[2019-03-19] MEDS: HYDROmorphone 2 MG/ML VIAL IVP PRN ×2 (18:24→21:33)
[2019-03-19] MEDS: ZOLPIDEM 5 MG TABLET. PO PRN (21:33)
[2019-03-20] MEDS: LORazepam 0.5 MG TABLET PO PRN ×2 (01:29→09:12)
[2019-03-20] MEDS: HYDROmorphone 2 MG/ML VIAL IVP PRN (01:30)
[2019-03-20] MEDS: diphenhydrAMINE 50 MG/ML VIAL IVP PRN ×2 (01:30→20:17)
[2019-03-20 03:02] VITALS: BP 104/56
[2019-03-20 07:30] VITALS: BP_SYST 103; BP_SYST 109; BP_SYST 91; BP_DIAS 47; BP_DIAS 61; BP_DIAS 72
[2019-03-20] MEDS: PANTOPRAZOLE 40 MG TABLET.DR. PO SCH (07:47)
[2019-03-20] MEDS: SUCRALFATE 1 GM TABLET. PO SCH ×4 (07:47→20:18)
[2019-03-20] MEDS: MULTIVITAMIN with MINERAL TABLET. PO SCH (09:12)
[2019-03-20] MEDS: NICOTINE 21MG PATCH. TD SCH (09:12)
[2019-03-20] MEDS: POLYETHYLENE GLYCOL 3350 17 GM PACKET. PO SCH (09:12)
[2019-03-20] MEDS ORDERED: METHYLNALTREXONE 12 MG/0.6 ML VIAL. SQ ONE (10:45)
[2019-03-20] MEDS ORDERED: busPIRone 10 MG TABLET. PO PRN (10:45)
[2019-03-20] MEDS ORDERED: MAGNESIUM CITRATE 296 ML SOLUTION. PO PRN (10:45)
[2019-03-20 11:48] VITALS: BP 111/71
[2019-03-20] MEDS: HYDROcodone/APAP 5/325MG 1 TAB TABLET PO PRN ×2 (11:58→20:17)
[2019-03-20] MEDS: busPIRone 10 MG TABLET. PO SCH ×2 (11:58→20:18)
[2019-03-20] MEDS: VENLAFAXINE 50 MG TABLET. PO SCH ×2 (11:59→20:18)
--- NOTE | 2019-03-20 13:45 | PDOC ---
PROGRESS NOTES Chief Complaint Chief Complaint Syncopal episode, most likely orthostasis given her poor oral intake and dehydration Moderate dehydration History of gastric bypass. Gastroparesis? Patient with presence of an ulcer on EGD performed on 03/18/19 Patient with no evidence of central etiology for her symptoms most likely her episode is a result of orthostasis due to poor oral intake. Severe B12 deficiency most likely due to her poor nutritional status Paresthesias reported to our neurolgical configuration management consultant who has requested an LP Generalized anxietty disorder constipation Plan: Will start Venlafaxine and Buspar for MARY stop narcotics given constipation which is the culprit of ehr discomfrt most likely will give mag citrated today adn relistor LP as requested by neurology configuration management consultant continue with b12 supplementation bisacodyl as per GI, continue with Carafate and PPI moving forward needs to follow with GI follow recommendations from Neuro configuration management consultant. reassess in the am History of Present Illness History of Present Illness Patient feeling about the same she says, no new complaints, will wait for recommendations from GI hopefully discharge in the next 24 hours. Vitals Vitals Vital Signs Date Time Temp Pulse Resp B/P (MAP) Pulse Ox O2 Delivery O2 Flow Rate FiO2 03/20/19 11:58 Room Air 03/20/19 11:48 97.7 65 18 111/71 (84) 98 97.7 Physical Exam Physical Exam Gen.: obese in no apparent distress Head: Normal shape atraumatic Eyes: Pupils equal reactive to light and accommodation, normal conjunctivae and lids Ears: Normal shape Nose: Normal shape no trauma Mouth: No exudates of the back of throat no thrush no lesions Neck: Supple no JVD no carotid bruit or lymphadenopathy no thyromegaly Chest: Lungs clear to auscultation with good inspiratory effort no crackles rales or rhonchi Cardiovascular: S1-S2 regular rhythm no murmurs gallops or rubs Abdomen: Bowel sounds present soft nontender no hepatosplenomegaly appreciated sign Extremities: No clubbing no cyanosis no edema peripheral pulses palpated bilaterally Neurological: Alert awake oriented in person time place and situation, cranial nerves II through XII intact, no motor or sensory deficits appreciated Psych: Appropriate mood, cooperative Lungs: Clear Assessment and Plan Assessmemt and Plan Problems Medical Problems: (1) Dizziness Status: Acute (2) Fall from standing Status: Acute (3) Left-sided weakness Status: Acute Comment Review of Relevant I have reviewed the following items rahul (where applicable) has been applied. Medications Current Medications Ondansetron HCl (Zofran) 4 mg PRN Q4HRS PRN IV NAUSEA/VOMITING; Start 03/16/19 at 16:45 Zolpidem Tartrate (Ambien) 5 mg PRN QHS PRN PO INSOMNIA Last administered on 03/19/19at 21:33; Start 03/16/19 at 16:45 Acetaminophen (Tylenol) 650 mg PRN Q4HRS PRN PO TEMP OVER 100.4F OR MILD PAIN; Start 03/16/19 at 16:45 Clonidine HCl (Catapres) 0.1 mg PRN Q6HRS PRN PO SBP>160 OR DBP>90; Start 03/16/19 at 16:45 Diphenhydramine HCl (Benadryl) 25 mg PRN Q4HRS PRN IVP ITCHING Last administered on 03/20/19at 01:30; Start 03/16/19 at 16:45 Docusate Sodium (Colace) 100 mg PRN BID PRN PO HARD STOOLS; Start 03/16/19 at 16:45 Albuterol Sulfate (Ventolin Neb Soln) 2.5 mg PRN Q4HRS PRN NEB SHORTNESS OF BREATH Last administered on 03/18/19at 11:53; Start 03/16/19 at 16:45 Lorazepam (Ativan) 0.5 mg PRN Q4HRS PRN PO ANXIETY / AGITATION Last administered on 03/20/19at 09:12; Start 03/16/19 at 16:45; Stop 03/20/19 at 10:43; Status DC Acetaminophen/ Hydrocodone Bitart (Lortab 5/325) 1 tab PRN Q6HRS PRN PO MODERATE PAIN; Start 03/16/19 at 16:45; Status Cancel Acetaminophen/ Hydrocodone Bitart (Lortab 5/325) 1 tab PRN Q6HRS PRN PO SEVERE PAIN 7-10 Last administered on 03/20/19at 11:58; Start 03/16/19 at 16:45 Ondansetron HCl (Zofran Odt) 4 mg PRN BID PRN PO NAUSEA/VOMITING; Start 03/16/19 at 16:45 Multivitamins (Thera M Plus) 1 tab DAILY PO Last administered on 03/20/19at 09:12; Start 03/17/19 at 09:00 Non-Formulary Medication (Omeprazole ) 1 cap DAILY PO ; Start 03/17/19 at 09:00; Status UNV Sucralfate (Carafate) 1 gm QIDACHS PO Last administered on 03/20/19at 07:47; St art 03/16/19 at 17:00 Pantoprazole Sodium (Protonix) 40 mg DAILYAC PO Last administered on 03/20/19at 07:47; Start 03/17/19 at 07:30 Non-Formulary Medication ([Pantoprazole] ) 40 mg DAILYAC PO ; Start 03/17/19 at 07:30; Status UNV Ondansetron HCl (Zofran) 4 mg PRN Q8HRS PRN IV NAUSEA/VOMITING; Start 03/16/19 at 17:00; Stop 03/17/19 at 16:59; Status UNV Morphine Sulfate (Morphine Sulfate) 2 mg PRN Q2HR PRN IV PAIN; Start 03/16/19 at 17:00; Stop 03/17/19 at 16:59; Status DC Gadoterate Meglumine (Dotarem) 10 ml 1X ONCE IVP Last administered on 03/16/19at 20:19; Start 03/16/19 at 20:00; Stop 03/16/19 at 20:09; Status DC Gadoterate Meglumine (Dotarem) 10 ml 1X ONCE IVP Last administered on 03/16/19at 20:19; Start 03/16/19 at 20:00; Stop 03/16/19 at 20:09; Status DC Nicotine (Nicoderm Cq 21mg) 1 patch DAILY TD Last administered on 03/20/19at 09:12; Start 03/16/19 at 22:30 Sodium Chloride 1,000 ml @ 125 mls/hr 1X ONCE IV Last administered on 03/17/19at 18:33; Start 03/17/19 at 18:15; Stop 03/18/19 at 02:14; Status DC Cyanocobalamin (Vitamin B-12) 1,000 mcg WEEKLY IM Last administered on 03/17/19at 21:57; Start 03/17/19 at 19:00 Ringer's Solution 1,000 ml @ 50 mls/hr Q20H IV ; Start 03/18/19 at 09:30; Stop 03/18/19 at 21:29; Status DC Polyethylene Glycol (miraLAX PACKET) 17 gm DAILY PO Last administered on 03/20/19at 09:12; Start 03/18/19 at 10:30 Polyethylene Glycol (miraLAX PACKET) 17 gm PRN DAILY PRN PO CONSTIPATION; Start 03/18/19 at 10:00 Ketorolac Tromethamine (Toradol 15mg Vial) 15 mg PRN Q6HRS PRN IV MODERATE PAIN Last administered on 03/19/19at 17:04; Start 03/18/19 at 12:30; Stop 03/23/19 at 12:29 Midazolam HCl (Versed) 2 mg PRN 1X PRN IV PRIOR TO PROCEDURE; Start 03/18/19 at 14:30; Stop 03/19/19 at 14:29; Status DC Fentanyl Citrate (Fentanyl 2ml Vial) 25 mcg PRN Q5MIN PRN IV X 2 DOSES FOR PAIN; Start 03/18/19 at 14:30; Stop 03/19/19 at 14:29; Status DC Fentanyl Citrate (Fentanyl 2ml Vial) 50 mcg PRN Q5MIN PRN IV X 2 DOSES FOR PAIN; Start 03/18/19 at 14:30; Stop 03/19/19 at 14:29; Status DC Ringer's Solution 1,000 ml @ 125 mls/hr Q8H IV Last administered on 03/19/19at 00:12; Start 03/18/19 at 14:17; Stop 03/19/19 at 02:16; Status DC Lidocaine HCl (Xylocaine-Mpf 1% 2ml Vial) 2 ml 1X PRN PRN ID IV START; Start 03/18/19 at 14:30; Stop 03/19/19 at 14:29; Status DC Propofol 20 ml @ As Directed STK-MED ONCE IV ; Start 03/18/19 at 15:11; Stop 03/18/19 at 15:12; Status DC Lidocaine HCl (Lidocaine Pf 2% Vial) 5 ml STK-MED ONCE .ROUTE ; Start 03/18/19 at 15:11; Stop 03/18/19 at 15:12; Status DC Bisacodyl (Dulcolax Tab) 10 mg 1X ONCE PO Last administered on 03/19/19at 15:05; Start 03/19/19 at 13:45; Stop 03/19/19 at 13:46; Status DC Hydromorphone HCl (Dilaudid) 0.5 mg PRN Q3HRS PRN IVP SEVERE PAIN Last administered on 03/20/19 01:30; Start 03/19/19 at 18:15; Stop 03/20/19 at 10:43; Status DC Venlafaxine HCl (Effexor) 50 mg BID PO Last administered on 03/20/19at 11:59; Start 03/20/19 at 11:00 Magnesium Citrate (Citroma) 296 ml PRN 1X PRN PO CONSTIPATION; Start 03/20/19 at 10:45 Buspirone HCl (Buspar) 10 mg PRN Q12HRS PRN PO ANXIETY; Start 03/20/19 at 10:45; Stop 03/20/19 at 10:48; Status DC Methylnaltrexone [place] (Relistor) 12 mg 1X ONCE SQ Last administered on 03/20/19at 12:00; Start 03/20/19 at 10:45; Stop 03/20/19 at 10:48; Status DC Buspirone HCl (Buspar) 10 mg BID PO Last administered on 03/20/19at 11:58; Start 03/20/19 at 10:48 Active Scripts Active Cocoa 5-325 Tablet (Acetaminophen/Hydrocodone Bitart) 1 Each Tablet 1-2 Each PO PRN Q6HRS PRN as needed for pain Omeprazole 40 Mg Capsule.dr 1 Cap PO DAILY Carafate (Sucralfate) 1 Gm/10 Ml Oral.susp 10 Ml PO BID Hydrocodone-Apap 5-325 (Hydrocodone Bit/Acetaminophen) 1 Tab Tablet 1 Tab PO PRN Q6HRS PRN 3 Days Ondansetron Odt (Ondansetron) 4 Mg Tab.rapdis 4 Mg PO BID PRN [place] 5-325 Tablet (Acetaminophen/Hydrocodone Bitart) 1 Each Tablet 1-2 Each PO PRN Q6HRS PRN as needed for pain [Pantoprazole] 40 MG Tablet.dr 40 Mg PO DAILYAC 30 Days Carafate (Sucralfate) 1 Gm/10 Ml Oral.susp 1 Gm PO QIDACHS 30 Days Reported Multivitamins (Multivitamin) 1 Each Tablet 1 Each PO DAILY Vitals/I & O Vital Sign - Last 24 Hours 03/19/19 03/19/19 03/19/19 03/19/19 15:00 15:05 17:02 18:24 Temp 98.6 98.6 Pulse 56 Resp 18 B/P (MAP) 124/79 (94) Pulse Ox 97 O2 Delivery Room Air Room Air Room Air Room Air 03/19/19 03/19/19 03/19/19 03/19/19 19:05 19:39 19:40 19:41 Temp 97.7 97.7 Pulse 57 67 67 Resp 16 16 B/P (MAP) 108/54 (72) 128/80 (96) 127/78 (94) Pulse Ox 96 O2 Delivery Room Air Room Air 03/19/19 03/19/19 03/20/19 03/20/19 21:33 23:16 01:30 02:00 Temp 97.7 97.7 Pulse 82 Resp 16 16 16 15 B/P (MAP) 108/53 (71) Pulse Ox 96 99 99 99 O2 Delivery Room Air Room Air Room Air Room Air 03/20/19 03/20/19 03/20/19 03/20/19 03:02 07:30 07:30 07:30 Temp 97.6 97.8 97.6 97.8 Pulse 68 67 67 74 Resp 16 18 B/P (MAP) 104/56 (72) 91/47 (62) 103/61 (75) 109/72 (84) Pulse Ox 95 97 O2 Delivery Room Air Room Air 03/20/19 03/20/19 03/20/19 07:54 11:48 11:58 Temp 97.7 97.7 Pulse 65 Resp 18 B/P (MAP) 111/71 (84) Pulse Ox 98 O2 Delivery Room Air Room Air Room Air Intake and Output 03/19/19 03/19/19 03/20/19 14:59 22:59 06:59 Intake Total 200 ml 200 ml 560 ml Balance 200 ml 200 ml 560 ml GUANAKO JASSO MD March 20, 2019 13:45
[2019-03-20 15:00] VITALS: BP 112/62
--- NOTE | 2019-03-20 15:53 | NUR ---
Pt. 1130 sucralfate non-administered r/t needing to be from other medications by at least 2 hours. Other medications were administered around 1200. 1630 dose of sucralfate administered early. Will continue to monitor.
--- NOTE | 2019-03-20 16:57 | PDOC ---
PROGRESS NOTES Assessment Assessment Left side weakness. No etiology found so far. Fall. Abdominal pain. Vomiting at times. Hx of gastric bypass about 1.5 years ago. Obesity. No evidence of acute CVA this time. No evidence of C-cord disease on CCT. RECOMMENDATIONS/PLAN: T-spine CT w/o contrast. LP for CSF exam. ASA daily. Treat medical diseases. Consulted GI. OT/PT. HISTORY OF THE PRESENT ILLNESS: Patient is a 39-year-old female with past medical history of gastric banding/bypass, unclear which procedure she had 4 gastric reduction. Patient was in her usual state of health until this morning when she was on her way to her son's room and patient told her son that she was "feeling funny". Patient did not have any auditory or AUDITORY aura-type of symptoms. She fell on the floor and she does not remember having chest discomfort headaches palpitations prior to the incident. The patient and had this episode witnessed by her son and no seizure like activity was reported, there is no evidence of tongue trauma, no bowel or urine incontinence reported. patient refers being "jerky" while waking up from the incident. Subsequently she developed numbness sensation over the left side of her body, no slurred speech or droop in her face was reported. She stated she still had left side numbness and weakness on 03/20/19 and LE > UE. She stated she could not move her left LE, but she was able to walk on the hallway per her nurse. Past Medical History GI bleeding. Gastric bypass surgery. Obesity. Past Surgical History Cholecystectomy, Tonsillectomy, Hysterectomy, gastric bypass. Family History Non contributory. ALLERGY: Sofa drugs. MEDICATIONS: Refer to [facility] SOCIAL HISTORY: Lives at home. Denies smoking, drinking, and illicit drug use. REVIEW OF SYSTEMS: Constitutional: Obese. Head: No traumatic brain or head injury. Skin: No edema, or rash. Ear: No infection. Eyes: No vision loss or color blindness. Nose: No bleeding or purulent discharges. Hearing: No hearing decrease. Neck: No injury. Breast: No history of cancer, masses,or discharges. Cardiac: No ID, arrhythmia. Pulmonary: No COPD. GI: GI bleeding. Urinary/genital: UTI. Endocrinologic: Obesity. Skeletomuscular: No muscular atrophy. Neurological: see HP. Psychiatric: Denies drug use/abuse. Otherwise, not [id number] review of systems. PHYSICAL EXAMINATION: General appearance is in no acute distress. HEENT: Normocephalic and nontraumatic. Eyes, nose, ears, and throat are unremarkable. Neck is supple. No lymphadenopathy. No bruits are heard over the carotid artery. No crepitus. Cardiovascular: S1, S2, regular rate and rhythm. Pulmonary: Clear to auscultation bilaterally. Abdomen: Bowel sounds are positive. Abdomen is soft, nontender, and nondistended. Extremities: No rash, lesions, or edema. No restriction of range of motion NEUROLOGICAL EXAMINATION: Alert Oriented to time, place and person. PERRL. EOMI. CN: no focal findings. Muscle tone: within normal. Muscle strength: 5, left side UE 5-, left LE ? Subjective? DTR: 2_ Plantar reflex: Flexor response bilaterally Gait: not examined in bed. Sensory exam: no abnormal findings. No cerebellar signs elicited. F-T-N test accurate. Objective Objective Vital Signs Date Time Temp Pulse Resp B/P (MAP) Pulse Ox O2 Delivery O2 Flow Rate FiO2 03/20/19 15:00 97.8 69 16 112/62 (79) 96 Room Air 97.8 Intake and Output 03/20/19 06:59 Intake Total 960 ml Balance 960 ml Intake Oral 960 ml # Voids 2 Vitals Signs Vitals VS - Last 72 Hours, by Label Date Time Temp Pulse Resp B/P (MAP) Pulse Ox O2 Delivery O2 Flow Rate FiO2 03/20/19 15:00 97.8 69 16 112/62 (79) 96 Room Air 97.8 03/20/19 12:58 Room Air 03/20/19 11:58 Room Air 03/20/19 11:48 97.7 65 18 111/71 (84) 98 Room Air 97.7 03/20/19 07:54 Room Air 03/20/19 07:30 74 109/72 (84) 03/20/19 07:30 67 103/61 (75) 03/20/19 07:30 97.8 67 18 91/47 (62) 97 Room Air 97.8 03/20/19 03:02 97.6 68 16 104/56 (72) 95 Room Air 97.6 03/20/19 02:00 15 99 Room Air 03/20/19 01:30 16 99 Room Air 03/19/19 23:16 97.7 82 16 108/53 (71) 99 Room Air 97.7 03/19/19 21:33 16 96 Room Air 03/19/19 19:41 67 16 127/78 (94) 03/19/19 19:40 97.7 67 16 128/80 (96) 96 Room Air 97.7 03/19/19 19:39 57 108/54 (72) 03/19/19 19:05 Room Air 03/19/19 18:24 Room Air 03/19/19 15:05 Room Air 03/19/19 15:00 98.6 56 18 124/79 (94) 97 Room Air 98.6 03/19/19 11:00 97.7 59 18 98/63 (75) 96 Room Air 97.7 03/19/19 08:35 Room Air 03/19/19 08:24 Room Air 03/19/19 07:50 54 120/76 (91) 03/19/19 07:50 54 126/81 (96) 03/19/19 07:50 97.6 53 20 108/65 (79) 98 Room Air 97.6 Medication Medications Current Medications Buspirone HCl (Buspar) 10 mg BID PO Last administered on 03/20/19at 11:58; Start 03/20/19 at 10:48 Buspirone HCl (Buspar) 10 mg PRN Q12HRS PRN PO ANXIETY; Start 03/20/19 at 10:45; Stop 03/20/19 at 10:48; Status DC Hydromorphone HCl (Dilaudid) 0.5 mg PRN Q3HRS PRN IVP SEVERE PAIN Last administered on 03/20/19at 01:30; Start 03/19/19 at 18:15; Stop 03/20/19 at 10:43; Status DC Magnesium Citrate (Citroma) 296 ml PRN 1X PRN PO CONSTIPATION Last administered on 03/20/19at 16:01; Start 03/20/19 at 10:45 Methylnaltrexone [place] (Relistor) 12 mg 1X ONCE SQ Last administered on 03/20/19at 12:00; Start 03/20/19 at 10:45; Stop 03/20/19 at 10:48; Status DC Venlafaxine HCl (Effexor) 50 mg BID PO Last administered on 03/20/19at 11:59; Start 03/20/19 at 11:00 Comment Review of Relevant I have reviewed the following items rahul (where applicable) has been applied. LEAH ANDRADE MD March 20, 2019 16:57
[2019-03-20 19:15] VITALS: BP 159/61
[2019-03-20] MEDS: ZOLPIDEM 5 MG TABLET. PO PRN (20:17)
[2019-03-20 23:47] VITALS: BP 114/55
--- NOTE | 2019-03-21 03:02 | NUR ---
Pt. found walking halls with bags in hand. Asked pt. what she was doing and stated she was leaving [facility] and her ride was already here to pick her up. Tried to convince pt to stay without success. Pt. had already taken out iv and tele monitor was dc'd. Pt. signed ama papers and was wheeled to the emergency room for moss picker. Security notified pt was on her way. Nursing supervisor [place] notified. Will notify senior telecommunications technician doctor.
--- NOTE | 2019-03-22 15:05 | PATHOLOGY ---
[facility] Accession Number: [id number] . 01 Material submitted: . stomach - BIOPSY GASTRIC ANASTOMOSIS . 01 Clinical history: . Hx of post gastric bypass, anastomosis ulcer, nausea, vomiting . 02 Diagnosis: "Gastric anastomosis", biopsy: - Fragments of small bowel mucosa and possible gastric mucosa with focal mild chronic inflammation. - No evidence of Helicobacter pylori on immunoperoxidase stain. (SKM:shala; 03/22/2019) QMS/03/22/2019 . 02 Electronically signed: . Esteban Skaggs MD, Pathologist NPI- [id number] . 01 Gross description: . Received in formalin labeled "Alondra Frances, BX gastric anastomosis," are 4 segments of javier soft tissue measuring 0.6 x 0.6 x 0.1 cm in aggregate dimensions and ranging from 0.2 to 0.3 cm in maximum dimension. The specimen is submitted entirely in cassette A1. (TSD; 03/21/2019) TOB/TOB . 02 Pathologist provided ICD-10: K29.50 . 02 CPT . 361697, Y34112 Specimen Comment: A courtesy copy of this report has been sent to Specimen Comment: [phone], , , . Specimen Comment: Report sent to ,DR JASSO,DR BOLES / DR SARABIA Performed at: 01 [facility] [address], [place] [id number] MD Davi Molina MD Phone: [phone] Performed at: 02 [facility] [address], [place] [id number] MD Ricky Sanchez MD Phone: [phone]
== END 2019-03-21 03:02 | disposition left against medical advice (07) | DRG 382 ==
LOC: ER 14:00 → 6 SOUTH 16:39
PROVIDERS: ADMIT Internal Medicine; ATTEND Internal Medicine
PROC: 0DB68ZX Excision of Stomach, Via Natural or Artificial Opening Endoscopic, Diagnostic (ICD-10-PCS; principal; 2019-03-18 15:30)
DX: K28.9 Gastrojejunal ulcer, unspecified as acute or chronic, without hemorrhage or perforation (principal); I95.1 Orthostatic hypotension; E66.9 Obesity, unspecified; E86.0 Dehydration; K31.4 Gastric diverticulum; Z68.35 Body mass index [BMI] 35.0-35.9, adult; E53.8 Deficiency of other specified B group vitamins; F32.9 Major depressive disorder, single episode, unspecified; F41.9 Anxiety disorder, unspecified; K59.00 Constipation, unspecified; W18.39XA Other fall on same level, initial encounter; Z79.82 Long term (current) use of aspirin; Z53.21 Procedure and treatment not carried out due to patient leaving prior to being seen by health care provider; Z82.3 Family history of stroke; Z87.11 Personal history of peptic ulcer disease; Z90.49 Acquired absence of other specified parts of digestive tract; Z90.711 Acquired absence of uterus with remaining cervical stump; Z98.84 Bariatric surgery status; Y93.89 Activity, other specified; Y92.89 Other specified places as the place of occurrence of the external cause; Y99.8 Other external cause status
CPT/HCPCS: 36415; 43239; 70450; 70553; 71045; 72125; 74022; 80048; 80053; 80307; 82553; 82607; 82962; 83605; 83735; 83880; 84443; 84484; 85025; 85610; 85730; 88305; 88342; 93005; 94640; 94760; A9575; G0480; J1170; J1200; J1885; J2001; J2212; J2704; J3420; J7030; J7120; J7613; 97530; 97535; 99285-25

== ENCOUNTER 2019-12-07 22:46 | Emergency (ER) | payer OTHER ==
[~2019-12-07] VITALS: Ht 162.6 cm; Wt 67.0 kg
[~2019-12-07 22:46] MED LIST changes: +OMEP40CA45 PO; -OMEP40CA5 PO
[2019-12-07] MEDS ORDERED: IV NORMAL SALINE 1000ML BAG 1,000 ML IV SCH (23:00)
--- NOTE | 2019-12-07 23:22 | PHYS DOC ---
Past Medical History Past Medical History: GI Bleed, Other Additional Past Medical Histor: OBESITY, ULCERS Past Surgical History: Cholecystectomy, Gastric Bypass, Hysterectomy, Other Additional Past Surgical Histo: RIGHT ROTATOR CUFF, EAR, BLADDER SLING Smoking Status: Current Every Day Smoker Alcohol Use: None Drug Use: None Adult General Chief Complaint Chief Complaint: ABDOMINAL PAIN HPI HPI 39-year-old female presents to the emergency department with complaints of abdominal pain. She describes lower generalized abdominal discomfort, sharp. She as well describes nausea with vomiting, denies any fever. She states she's had 2 syncopal episodes today. She denies any vaginal discharge, she is status post hysterectomy. She states that every time she has abdominal pain she gets admitted to the hospital. This is been ongoing times one month and worse today. She states she hasn't had anything to eat or drink for at least 2 weeks however her vital signs are completely normal this time. He makes her symptoms worse, nothing makes her symptoms better. Review of Systems Review of Systems Constitutional: Denies fever or chills [] Respiratory: Denies cough or shortness of breath [] Cardiovascular: No additional information not addressed in HPI [] GI: + abdominal pain, nausea, vomiting, no bloody stools or diarrhea [] : Denies dysuria or hematuria [] Musculoskeletal: Denies back pain or joint pain [] Neurologic: Denies headache, focal weakness or sensory changes [] All other systems were reviewed and found to be within normal limits, except as documented in this note. Current Medications Current Medications Current Medications Medications (Trade) Dose Ordered Sig/Marilyn Start Time Stop Time Status Last Admin Dose Admin Info (CONTRAST GIVEN -- Rx MONITORING) 1 each PRN DAILY PRN 12/08/19 00:30 12/10/19 00:29 Iohexol (Omnipaque 300 Mg/ml) 75 ml 1X ONCE 12/08/19 00:30 12/08/19 00:31 DC 12/08/19 00:29 75 ML Morphine Sulfate (Morphine Sulfate) 4 mg 1X ONCE 12/07/19 23:30 12/07/19 23:31 DC 12/07/19 23:39 4 MG Ondansetron HCl (Zofran) 4 mg 1X ONCE 12/07/19 23:30 12/07/19 23:31 DC 12/07/19 23:38 4 MG Sodium Chloride 1,000 ml @ 1,000 mls/hr Q1H 12/07/19 23:00 12/07/19 23:59 DC 12/07/19 23:40 1,000 MLS/HR Allergies Allergies Allergies Coded Allergies Type Severity Reaction Last Updated Verified Sulfa (Sulfonamide Antibiotics) Allergy Intermediate hives 03/18/19 No Physical Exam Physical Exam Constitutional: Well developed, well nourished, no acute distress, non-toxic appearance. [] HENT: Normocephalic, atraumatic, bilateral external ears normal, oropharynx moist, no oral exudates, nose normal. [] Eyes: PERRLA, EOMI, conjunctiva normal, no discharge. [] Cardiovascular:Heart rate regular rhythm, no murmur [] Lungs & Thorax: Bilateral breath sounds clear to auscultation [] Abdomen: Bowel sounds normal, soft, TTP lower abdomen, no focal pain on exam, no masses, no pulsatile masses. [] Skin: Warm, dry, no erythema, no rash. [] Back: No tenderness, no CVA tenderness. [] Extremities: No tenderness,no edema. [] Neurologic: Alert and oriented X 3, no focal deficits noted. [] Psychologic: Affect normal, judgement normal, mood normal. [] Current Patient Data Vital Signs Vital Signs Date Time Temp Pulse Resp B/P (MAP) Pulse Ox O2 Delivery O2 Flow Rate FiO2 12/07/19 23:39 18 96 Room Air 12/07/19 23:00 97.8 82 136/93 (107) 97.8 Lab Values Laboratory Tests Test 12/07/19 23:33 12/07/19 23:59 12/08/19 00:06 White Blood Count 8.9 x10^3/uL (4.0-11.0) Red Blood Count 5.21 x10^6/uL (3.50-5.40) Hemoglobin 15.7 g/dL (12.0-15.5) H Hematocrit 48.0 % (36.0-47.0) H Mean Corpuscular Volume 92 fL (79-100) Mean Corpuscular Hemoglobin 30 pg (25-35) Mean Corpuscular Hemoglobin Concent 33 g/dL (31-37) Red Cell Distribution Width 13.5 % (11.5-14.5) Platelet Count 195 x10^3/uL (140-400) Neutrophils (%) (Auto) 51 % (31-73) Lymphocytes (%) (Auto) 38 % (24-48) Monocytes (%) (Auto) 8 % (0-9) Eosinophils (%) (Auto) 3 % (0-3) Basophils (%) (Auto) 1 % (0-3) Neutrophils # (Auto) 4.5 x10^3/uL (1.8-7.7) Lymphocytes # (Auto) 3.3 x10^3/uL (1.0-4.8) Monocytes # (Auto) 0.7 x10^3/uL (0.0-1.1) Eosinophils # (Auto) 0.2 x10^3/uL (0.0-0.7) Basophils # (Auto) 0.1 x10^3/uL (0.0-0.2) Sodium Level 143 mmol/L (136-145) Potassium Level 4.0 mmol/L (3.5-5.1) Chloride Level 107 mmol/L (98-107) Carbon Dioxide Level 33 mmol/L (21-32) H Anion Gap 3 (6-14) L Blood Urea Nitrogen 14 mg/dL (7-20) Creatinine 0.6 mg/dL (0.6-1.0) Estimated GFR (Cockcroft-Gault) 111.9 BUN/Creatinine Ratio 23 (6-20) H Glucose Level 82 mg/dL (70-99) Calcium Level 10.5 mg/dL (8.5-10.1) H Total Bilirubin 0.2 mg/dL (0.2-1.0) Aspartate Amino Transferase (AST) 14 U/L (15-37) L Alanine Aminotransferase (ALT) 18 U/L (14-59) Alkaline Phosphatase 98 U/L (46-116) Total Protein 7.0 g/dL (6.4-8.2) Albumin 3.1 g/dL (3.4-5.0) L Albumin/Globulin Ratio 0.8 (1.0-1.7) L Lipase 81 U/L (73-393) Urine Collection Type Unknown Urine Color Mai Urine Clarity Turbid Urine pH 5.5 Urine Specific [place] >=1.030 Urine Protein Negative mg/dL (NEG-TRACE) Urine Glucose (UA) Negative mg/dL (NEG) Urine Ketones (Stick) Negative mg/dL (NEG) Urine Blood Negative (NEG) Urine Nitrite Negative (NEG) Urine Bilirubin Small (NEG) Urine Urobilinogen Dipstick 1.0 mg/dL (0.2 mg/dL) Urine Leukocyte Esterase Negative (NEG) Urine RBC 0 /HPF (0-2) Urine WBC 5-10 /HPF (0-4) Urine Squamous Epithelial Cells Many /LPF Urine Calcium Phosphate Crystals /HPF Urine Amorphous Sediment Present /HPF Urine Bacteria Few /HPF (0-FEW) Urine Mucus Marked /LPF POC Urine HCG, Qualitative Hcg negative (Negative) Laboratory Tests 12/07/19 23:33 Laboratory Tests 12/07/19 23:33 EKG EKG [] Radiology/Procedures Radiology/Procedures [facility] [address] [place], [place] [id number] IMAGING REPORT Signed PATIENT: MARIETTA MEHTA DACCOUNT: [id number] : 1980 LOCATION: ER AGE: 39 SEX: F EXAM STATUS: REG ER ORD. PHYSICIAN: DAVIDSON STEPHENS MD REASON: abdominal pain, history gastric bypass, nausea/vomiting, unable to take po PROCEDURE: CT ABD PELV W/ IV CONTRST ONLY CT SCAN OF THE ABDOMEN AND PELVIS WITH IV CONTRAST. History: Abdominal pain gastric bypass Comparison: February 22, 2019. Procedure: Contiguous axial images of the abdomen and pelvis were performed after the administration of 75 cc of Isovue 370 IV contrast. Oral contrast: No. Findings: Curve this postoperative changes consistent with gastric bypass. The appendix is not well seen. The gallbladder has been removed. The common bile duct is dilated to 1.4 cm. Liver: Mild periportal edema Spleen: Unremarkable Pancreas: Unremarkable Adrenal Glands: Unremarkable Kidneys: Unremarkable There is no mass or lymphadenopathy. There is no free air. There is no free fluid. The urinary bladder is collapsed and not well evaluated. Impression: 1. Mild periportal edema is nonspecific but can be secondary to hepatitis. 2. Dilated common bile duct not seen previously. No stones seen. PQRS Compliance Statement: One or more of the following individualized dose reduction techniques were utilized for this examination: 1. Automated exposure control 2. Adjustment of the mA and/or kV according to patient size 3. Use of iterative reconstruction technique Electronically signed by: Antonina Arnold III, MD (12/08/2019 1:17 AM) [id number] DICTATED and SIGNED BY: ANTONINA ARNOLD III, MD DATE: 12/08/19 0117 [] Course & Med Decision Making Course & Med Decision Making Pertinent Labs and Imaging studies reviewed. (See chart for details) []39-year-old female presents to the emergency department with complaints of abdominal pain. She describes lower generalized abdominal discomfort, sharp. She as well describes nausea with vomiting, denies any fever. She states she's had 2 syncopal episodes today 2/2 dehydration. She denies any vaginal discharge, she is status post hysterectomy. She states that every time she has abdominal pain she gets admitted to the hospital. This has been ongoing times one month and worse today. She states she hasn't had anything to eat or drink for at least 2 weeks however her vital signs are completely normal this time. Nothing makes her symptoms worse, nothing makes her symptoms better. Labs reviewed Creat normal, UA without ketones appreciated, no UTI Urine sent for gc/chlamydia - will follow up results Morphine 4mg/Zofran 4mg IV x 1 - given 1 hour ago without relief and patient asking for more pain medications Discussed CT findings with patient Recommend dc home with bentyl/zofran as needed No clinical signs of dehydration at this time Dragon Disclaimer Dragon Disclaimer This electronic medical record was generated, in whole or in part, using a voice recognition dictation system. Departure Departure Impression: Primary Impression: Abdominal pain Additional Impression: Nausea & vomiting Disposition: 01 HOME, SELF-CARE Condition: IMPROVED Referrals: NO PCP (PCP) Patient Instructions: Abdominal Pain (Nonspecific), Nausea and Vomiting, [id number] Additional Instructions: Recommend follow up with PCP in 3 - [address] of abdomen shows no evidence of acute intra-abdominal process Labs reviewed without evidence of dehydration Urine reviewed without acute infection Scripts Ondansetron Hcl (ZOFRAN) 4 Mg Tablet 1 TAB PO PRN Q6-8HRS for nausea, #12 TAB Prov: DAVIDSON STEPHENS MD 12/08/19 Dicyclomine Hcl (DICYCLOMINE HCL) 10 Mg Capsule 1 CAP PO TID for 5 Days, #15 CAP 1 Refill Prov: DAVIDSON STEPHENS MD 12/08/19 Problem Qualifiers Primary Impression: Abdominal pain Abdominal location: generalized Qualified Codes: R10.84 - Generalized abdominal pain Additional Impression: Nausea & vomiting Vomiting type: unspecified Vomiting Intractability: unspecified Qualified Codes: R11.2 - Nausea with vomiting, unspecified DAVIDSON STEPHENS MD Dec 07, 2019 23:22
[2019-12-07] MEDS ORDERED: ONDANSETRON PF 4 MG/2 ML VIAL. IVP ONE (23:30)
[2019-12-07] MEDS ORDERED: MORPHINE SULFATE 4 MG/ML VIAL. IV ONE (23:30)
[2019-12-07 23:41] LABS: BASO # 0.1 x10^3/uL (0.0-0.2); BASO % 1 % (0-3); EOS # 0.2 x10^3/uL (0.0-0.7); EOS % 3 % (0-3); HEMOGLOBIN 15.7 g/dL (12.0-15.5); LYMPH # 3.3 x10^3/uL (1.0-4.8); LYMPH % 38 % (24-48); MEAN CORPUSCULAR HEMOGLOBIN 30 pg (25-35); MEAN CORPUSCULAR HGB CONC 33 g/dL (31-37); MEAN CORPUSCULAR VOLUME 92 fL (79-100); MONO # 0.7 x10^3/uL (0.0-1.1); MONO % 8 % (0-9); NEUT # 4.5 x10^3/uL (1.8-7.7); NEUT % 51 % (31-73); PLATELET COUNT 195 x10^3/uL (140-400); RED BLOOD COUNT 5.21 x10^6/uL (3.50-5.40); RED CELL DISTRIBUTION WIDTH 13.5 % (11.5-14.5); WHITE BLOOD COUNT 8.9 x10^3/uL (4.0-11.0)
[2019-12-07 23:57] LABS: CALCIUM 10.5 mg/dL (8.5-10.1); CREATININE 0.6 mg/dL (0.6-1.0); GFR 111.9
[2019-12-08 00:03] LABS: ALBUMIN 3.1 g/dL (3.4-5.0); ALBUMIN/GLOBULIN RATIO 0.8 (1.0-1.7); TOTAL BILIRUBIN 0.2 mg/dL (0.2-1.0)
[2019-12-08 00:12] LABS: BILIRUBIN,URINE SMALL (NEG); CLARITY,URINE TURBID; COLOR,URINE AMBER; NITRITE,URINE NEGATIVE (NEG); PH,URINE 5.5; PROTEIN,URINE NEGATIVE (NEG-TRACE)
[2019-12-08 00:24] LABS: SQUAMOUS EPITHELIAL CELL,UR MANY /LPF
[2019-12-08 00:26] LABS: AMORPHOUS SEDIMENT,UR PRESENT /HPF; BACTERIA,URINE FEW /HPF (0-FEW); RBC,URINE 0 /HPF (0-2)
[2019-12-08] MEDS ORDERED: IOHEXOL 300 MG/ML 100ML VIAL. IV ONE (00:30)
[2019-12-08] MEDS ORDERED: CONTRAST GIVEN. MC PRN (00:30)
--- NOTE | 2019-12-08 01:20 | RAD ---
CT SCAN OF THE ABDOMEN AND PELVIS WITH IV CONTRAST. History: Abdominal pain gastric bypass Comparison: February 22, 2019. Procedure: Contiguous axial images of the abdomen and pelvis were performed after the administration of 75 cc of Isovue 370 IV contrast. Oral contrast: No. Findings: Curve this postoperative changes consistent with gastric bypass. The appendix is not well seen. The gallbladder has been removed. The common bile duct is dilated to 1.4 cm. Liver: Mild periportal edema Spleen: Unremarkable Pancreas: Unremarkable Adrenal Glands: Unremarkable Kidneys: Unremarkable There is no mass or lymphadenopathy. There is no free air. There is no free fluid. The urinary bladder is collapsed and not well evaluated. Impression: 1. Mild periportal edema is nonspecific but can be secondary to hepatitis. 2. Dilated common bile duct not seen previously. No stones seen. PQRS Compliance Statement: One or more of the following individualized dose reduction techniques were utilized for this examination: 1. Automated exposure control 2. Adjustment of the mA and/or kV according to patient size 3. Use of iterative reconstruction technique Electronically signed by: Tito Vargas III, MD (12/08/2019 1:17 AM) [id number]
[2019-12-08 01:34] VITALS: BP 107/62
[2019-12-08] MEDS ORDERED: ONDA4TAB7 PO (01:48)
[2019-12-08] MEDS ORDERED: DICY10CA3 PO (01:48)
== END 2019-12-08 01:55 | disposition home or self-care (01) ==
LOC: ER 22:46
DX: R10.84 Generalized abdominal pain (principal); R11.2 Nausea with vomiting, unspecified; F17.200 Nicotine dependence, unspecified, uncomplicated; E66.9 Obesity, unspecified; Z68.25 Body mass index [BMI] 25.0-25.9, adult; Z90.49 Acquired absence of other specified parts of digestive tract; Z90.710 Acquired absence of both cervix and uterus; Z88.2 Allergy status to sulfonamides
CPT/HCPCS: 36415; 74177; 80053; 81001; 81025; 83690; 85025; 87086; 87491; 87591; 96361; 96374; 96375; 99285; J2270; J2405; J7030; Q9967

== ENCOUNTER 2020-01-11 19:23 | Emergency (ER) | payer OTHER ==
[~2020-01-11] VITALS: Ht 165.1 cm; Wt 60.0 kg
[~2020-01-11 19:23] MED LIST changes: +DICY10CA3 PO; +ONDA4TAB7 PO
[2020-01-11] MEDS ORDERED: ONDANSETRON PF 4 MG/2 ML VIAL. IVP ONE (21:30)
[2020-01-11] MEDS ORDERED: IV NORMAL SALINE 1000ML BAG 1,000 ML IV SCH (21:30)
[2020-01-11] MEDS ORDERED: fentaNYL PF VIAL 100 MCG/2 ML VIAL IVP ONE (21:30)
[2020-01-11 21:59] LABS: BASO # 0.1 x10^3/uL (0.0-0.2); BASO % 1 % (0-3); EOS # 0.1 x10^3/uL (0.0-0.7); EOS % 2 % (0-3); HEMATOCRIT 46.9 % (36.0-47.0); HEMOGLOBIN 15.2 g/dL (12.0-15.5); LYMPH # 2.2 x10^3/uL (1.0-4.8); LYMPH % 32 % (24-48); MEAN CORPUSCULAR HEMOGLOBIN 30 pg (25-35); MEAN CORPUSCULAR HGB CONC 32 g/dL (31-37); MEAN CORPUSCULAR VOLUME 91 fL (79-100); MONO # 0.4 x10^3/uL (0.0-1.1); MONO % 6 % (0-9); NEUT % 59 % (31-73); PLATELET COUNT 192 x10^3/uL (140-400); RED BLOOD COUNT 5.13 x10^6/uL (3.50-5.40); WHITE BLOOD COUNT 6.8 x10^3/uL (4.0-11.0)
[2020-01-11 22:12] LABS: CALCIUM 10.5 mg/dL (8.5-10.1); CREATININE 0.6 mg/dL (0.6-1.0); GFR 111.9
[2020-01-11 22:14] LABS: ALBUMIN 3.3 g/dL (3.4-5.0); TOTAL BILIRUBIN 0.6 mg/dL (0.2-1.0); TOTAL PROTEIN 6.7 g/dL (6.4-8.2)
--- NOTE | 2020-01-11 22:39 | RAD ---
EXAM: CT Abdomen and Pelvis without IV contrast CLINICAL HISTORY: Epigastric pain, history of gastric bypass COMPARISON: 12/08/2019, 02/22/2019.. TECHNIQUE: Helical CT of the abdomen and pelvis was performed without intravenous contrast. Axial, coronal and sagittal reformatted images were generated. ---PQRS compliance statement - One or more of the following individualized dose reduction techniques were utilized for this study: 1. Automated exposure control 2. Adjustment of the mA and/or kV according to patient size 3. Use of iterative reconstruction technique--- FINDINGS: Lack of intravenous contrast limits evaluation of solid organs, vasculature, and lymph nodes. Lung bases: 1 cm right lower lobe lung nodule with central cavitation is unchanged to 12/08/2019. Abdomen and Pelvis: No focal liver lesion. Liver is mildly enlarged measuring 18.5 cm in length. Accounting for postcholecystectomy change, no biliary ductal dilatation. Pancreas is unremarkable. Spleen is unremarkable. Adrenal glands are normal. Right renal calcifications are seen. Nonobstructing right interpolar renal calculus. No hydronephrosis or hydroureter. Bladder is unremarkable. Moderate colonic stool content is seen. Appendix is normal. No abdominal or pelvic ascites. No abdominal or pelvic lymphadenopathy. Changes of gastric bypass are seen with associated anastomotic suture lines. No bowel obstruction. Changes of hysterectomy are seen. Left adnexal cystic lesion is noted measuring 4.6 cm. No abdominal or pelvic ascites. No abdominal pelvic lymphadenopathy. Bones: No aggressive osseous lesion. s IMPRESSION: 1. Left adnexal cystic structure measures 4.6 cm, new compared to 12/08/2019. Although this may represent follicle, given size further evaluation with ultrasound is recommended. 2. Changes of gastric bypass are seen. No bowel obstruction. 3. Appendix is normal. 4. Mild hepatomegaly. Electronically signed by: Yasmani Davenport MD (01/11/2020 10:35 PM) [id number]
[2020-01-11 22:49] LABS: BILIRUBIN,URINE SMALL (NEG); CLARITY,URINE CLEAR; COLOR,URINE AMBER; NITRITE,URINE NEGATIVE (NEG); PROTEIN,URINE NEGATIVE (NEG-TRACE)
[2020-01-11 22:50] LABS: BACTERIA,URINE FEW /HPF (0-FEW); RBC,URINE 0 /HPF (0-2); SQUAMOUS EPITHELIAL CELL,UR MOD /LPF; WBC,URINE OCC /HPF (0-4)
[2020-01-11 22:57] LABS: AMPHETAMINE/METHAMPHETAMINE NEG (NEG); BARBITURATES NEG (NEG); BENZODIAZEPINES NEG (NEG); CANNABINOIDS POS (NEG); COCAINE NEG (NEG); METHADONE NEG (NEG); OPIATES NEG (NEG); PHENCYCLIDINE NEG (NEG)
--- NOTE | 2020-01-11 23:05 | EKG ---
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
--- NOTE | 2020-01-11 23:16 | PHYS DOC ---
Past Medical History Past Medical History: GI Bleed Additional Past Medical Histor: gastric ulcers, gastric bypass Past Surgical History: No Surgical History Additional Past Surgical Histo: RIGHT ROTATOR CUFF, EAR, BLADDER SLING Smoking Status: Current Every Day Smoker Additional Information: 5 cigs/day Alcohol Use: None Drug Use: None Adult General Chief Complaint Chief Complaint: ABNORMAL LABS [facility] HPI Patient is a 39 year old female with history of gastric bypass in 2017 and gastroparesis who presents with complaint of abnormal labs and abdominal pain. Patient states she had abnormal potassium and sodium and was seen by her primary care physician on January 07 for recheck the blood. Patient states she had epigastric pain since yesterday as a constant pain with radiation to the back and associated with constant vomiting and 3 episodes of nausea and was seen by her primary care physician today and was told that she has sodium of 125 and potassium of 5.0 and needs to come to the emergency room. Patient states she wa s not able to eat or drink anything and had 3 episodes of syncope with change of position of her head without history of syncope. Patient rated her pain 8/10 and denies urinary symptoms, diarrhea and constipation, chest pain and shortness of breath, focal neuro deficits, head injury, , using drugs or alcohol. Review of Systems Review of Systems Constitutional: Denies fever or chills [] Eyes: Denies change in visual acuity, redness, or eye pain [] HENT: Denies nasal congestion or sore throat [] Respiratory: Denies cough or shortness of breath [] Cardiovascular: No additional information not addressed in HPI [] GI: Reports abdominal pain, nausea, vomiting, denies bloody stools or diarrhea [] : Denies dysuria or hematuria [] Musculoskeletal: Denies back pain or joint pain [] Integument: Denies rash or skin lesions [] Neurologic: Denies headache, focal weakness or sensory changes [] Endocrine: Denies polyuria or polydipsia [] All other systems were reviewed and found to be within normal limits, except as documented in this note. Current Medications Current Medications Current Medications Medications (Trade) Dose Ordered Sig/Marilyn Start Time Stop Time Status Last Admin Dose Admin Famotidine (Pepcid Vial) 20 mg 1X ONCE 01/11/20 23:45 01/11/20 23:46 DC Fentanyl Citrate (Fentanyl 2ml Vial) 50 mcg 1X ONCE 01/11/20 21:30 01/11/20 21:31 DC 01/11/20 22:30 50 MCG Ondansetron HCl (Zofran) 4 mg 1X ONCE 01/11/20 21:30 01/11/20 21:31 DC 01/11/20 22:30 4 MG Sodium Chloride 1,000 ml @ 1,000 mls/hr Q1H 01/11/20 21:30 01/11/20 22:29 DC 01/11/20 22:31 1,000 MLS/HR Allergies Allergies Allergies Coded Allergies Type Severity Reaction Last Updated Verified Sulfa (Sulfonamide Antibiotics) Allergy Intermediate hives 03/18/19 No Physical Exam Physical Exam Constitutional: Well developed, well nourished, mild distress, non-toxic appearance. [] HENT: Normocephalic, atraumatic, bilateral external ears normal, oropharynx moist, no oral exudates, nose normal. [] Eyes: PERRLA, EOMI, conjunctiva normal, no discharge. [] Neck: Normal range of motion, no tenderness, supple, no stridor. [] Cardiovascular:Heart rate regular rhythm, no murmur [] Lungs & Thorax: Bilateral breath sounds clear to auscultation [] Abdomen: Bowel sounds normal, soft, no tenderness, no masses, no pulsatile masses. [] Skin: Warm, dry, no erythema, no rash. [] Back: No tenderness, no CVA tenderness. [] Extremities: No tenderness, no cyanosis, no clubbing, ROM intact, no edema. [] Neurologic: Alert and oriented X 3, normal motor function, normal sensory function, no focal deficits noted. [] Psychologic: Affect anxious , judgement normal, mood normal. [] Current Patient Data Vital Signs Vital Signs Date Time Temp Pulse Resp B/P (MAP) Pulse Ox O2 Delivery O2 Flow Rate FiO2 01/11/20 22:30 73 109/60 (76) 100 Room Air 01/11/20 22:30 12 01/11/20 20:38 98.0 98.0 Lab Values Laboratory Tests Test 01/11/20 21:45 01/11/20 22:38 White Blood Count 6.8 x10^3/uL (4.0-11.0) Red Blood Count 5.13 x10^6/uL (3.50-5.40) Hemoglobin 15.2 g/dL (12.0-15.5) Hematocrit 46.9 % (36.0-47.0) Mean Corpuscular Volume 91 fL (79-100) Mean Corpuscular Hemoglobin 30 pg (25-35) Mean Corpuscular Hemoglobin Concent 32 g/dL (31-37) Red Cell Distribution Width 14.0 % (11.5-14.5) Platelet Count 192 x10^3/uL (140-400) Neutrophils (%) (Auto) 59 % (31-73) Lymphocytes (%) (Auto) 32 % (24-48) Monocytes (%) (Auto) 6 % (0-9) Eosinophils (%) (Auto) 2 % (0-3) Basophils (%) (Auto) 1 % (0-3) Neutrophils # (Auto) 4.0 x10^3/uL (1.8-7.7) Lymphocytes # (Auto) 2.2 x10^3/uL (1.0-4.8) Monocytes # (Auto) 0.4 x10^3/uL (0.0-1.1) Eosinophils # (Auto) 0.1 x10^3/uL (0.0-0.7) Basophils # (Auto) 0.1 x10^3/uL (0.0-0.2) Prothrombin Time 13.0 SEC (11.7-14.0) Prothrombin Time INR 1.0 (0.8-1.1) Sodium Level 141 mmol/L (136-145) Potassium Level 4.0 mmol/L (3.5-5.1) Chloride Level 105 mmol/L (98-107) Carbon Dioxide Level 30 mmol/L (21-32) Anion Gap 6 (6-14) Blood Urea Nitrogen 6 mg/dL (7-20) L Creatinine 0.6 mg/dL (0.6-1.0) Estimated GFR (Cockcroft-Gault) 111.9 BUN/Creatinine Ratio 10 (6-20) Glucose Level 75 mg/dL (70-99) Calcium Level 10.5 mg/dL (8.5-10.1) H Total Bilirubin 0.6 mg/dL (0.2-1.0) Aspartate Amino Transferase (AST) 10 U/L (15-37) L Alanine Aminotransferase (ALT) 16 U/L (14-59) Alkaline Phosphatase 93 U/L (46-116) Creatine Kinase 20 U/L (26-192) L Troponin I Quantitative < 0.017 ng/mL (0.000-0.055) WC-Vor-M-Type Natriuretic Peptide 56 pg/mL (0-124) Total Protein 6.7 g/dL (6.4-8.2) Albumin 3.3 g/dL (3.4-5.0) L Albumin/Globulin Ratio 1.0 (1.0-1.7) Lipase 48 U/L (73-393) L Urine Collection Type Unknown Urine Color Mai Urine Clarity Clear Urine pH 7.0 (<5.0-8.0) Urine Specific [place] 1.020 (1.000-1.030) Urine Protein Negative mg/dL (NEG-TRACE) Urine Glucose (UA) Negative mg/dL (NEG) Urine Ketones (Stick) Trace mg/dL (NEG) Urine Blood Negative (NEG) Urine Nitrite Negative (NEG) Urine Bilirubin Small (NEG) Urine Urobilinogen Dipstick 4.0 mg/dL (0.2 mg/dL) Urine Leukocyte Esterase Negative (NEG) Urine RBC 0 /HPF (0-2) Urine WBC Occ /HPF (0-4) Urine Squamous Epithelial Cells Mod /LPF Urine Bacteria Few /HPF (0-FEW) Urine Mucus Marked /LPF Urine Opiates Screen Neg (NEG) Urine Methadone Screen Neg (NEG) Urine Barbiturates Neg (NEG) Urine Phencyclidine Screen Neg (NEG) Urine Amphetamine/Methamphetamine Neg (NEG) Urine Benzodiazepines Screen Neg (NEG) Urine Cocaine Screen Neg (NEG) Urine Cannabinoids Screen Pos (NEG) Urine Ethyl Alcohol Neg (NEG) Laboratory Tests 01/11/20 21:45 Laboratory Tests 01/11/20 21:45 EKG EKG EKG interpreted by me. EKG at 2242 showed normal sinus rhythm at rate of 68, normal DE and QT intervals, incomplete right bundle branch block, no acute ST and T wave elevation. Radiology/Procedures Radiology/Procedures [facility] [address] [place] [address] IMAGING REPORT Signed PATIENT: MARIETTA MEHTA DACCOUNT: [id number] : 1980 LOCATION: ER AGE: 39 SEX: F EXAM STATUS: REG ER ORD. PHYSICIAN: AKILAH JACOME MD REASON: Epigastric pain, history of gastric bypass PROCEDURE: CT ABDOMEN PELVIS WO CONTRAST EXAM: CT Abdomen and Pelvis without IV contrast CLINICAL HISTORY: Epigastric pain, history of gastric bypass COMPARISON: 12/08/2019, 02/22/2019.. TECHNIQUE: Helical CT of the abdomen and pelvis was performed without intravenous contrast. Axial, coronal and sagittal reformatted images were generated. ---PQRS compliance statement - One or more of the following individualized dose reduction techniques were utilized for this study: 1. Automated exposure control 2. Adjustment of the mA and/or kV according to patient size 3. Use of iterative reconstruction technique--- FINDINGS: Lack of intravenous contrast limits evaluation of solid organs, vasculature, and lymph nodes. Lung bases: 1 cm right lower lobe lung nodule with central cavitation is unchanged to 12/08/2019. Abdomen and Pelvis: No focal liver lesion. Liver is mildly enlarged measuring 18.5 cm in length. Accounting for postcholecystectomy change, no biliary ductal dilatation. Pancreas is unremarkable. Spleen is unremarkable. Adrenal glands are normal. Right renal calcifications are seen. Nonobstructing right interpolar renal calculus. No hydronephrosis or hydroureter. Bladder is unremarkable. Moderate colonic stool content is seen. Appendix is normal. No abdominal or pelvic ascites. No abdominal or pelvic lymphadenopathy. Changes of gastric bypass are seen with associated anastomotic suture lines. No bowel obstruction. Changes of hysterectomy are seen. Left adnexal cystic lesion is noted measuring 4.6 cm. No abdominal or pelvic ascites. No abdominal pelvic lymphadenopathy. Bones: No aggressive osseous lesion. s IMPRESSION: 1. Left adnexal cystic structure measures 4.6 cm, new compared to 12/08/2019. Although this may represent follicle, given size further evaluation with ultrasound is recommended. 2. Changes of gastric bypass are seen. No bowel obstruction. 3. Appendix is normal. 4. Mild hepatomegaly. Electronically signed by: Yasmani Davenport MD (01/11/2020 10:35 PM) [id number] DICTATED and SIGNED BY: YASMANI DAVENPORT MD DATE: 01/11/20 2232 Course & Med Decision Making Course & Med Decision Making Pertinent Labs and Imaging studies reviewed. (See chart for details) Evaluation of patient ER showed 39-year-old male patient with history of gastric bypass in complaining of several problem including abdominal pain, nausea and vomiting, syncope, and abnormal labs. Patient had unremarkable physical exam except for anxiety. Patient had unremarkable labs including electrolytes except for calcium of 10.2. CT abdomen pelvis showed 4.6 cm left ovarian cyst and was advised to follow-up with her [employer]. Patient had drug-seeking behavior in ER and stated she always admitted at hospital because of her abdominal pain. Patient was advised that she does not have criteria for admission and needs to follow-up with her primary care physician and her gastric bypass physician. I've spoken with the patient and/or caregivers. I've explained the patient's condition, diagnosis and treatment plan based on information available to me at this time. I've answered the patient's and/or caregivers questions and addressed any concerns. The patient and/or caregivers have a good understanding the patient's diagnosis, condition and treatment plan as can be expected at this point. Vital signs have been stabilized. The patient's condition is stable for discharge from the emergency department. The patient will pursue further outpatient evaluation with her primary care provider or other designated consulting physician as outlined in the discharge instructions. Patient and/or caregivers are agreeable to this plan of care and follow-up instructions have been explained in detail. The patient and/or caregivers have received these instructions in written format and expressed understanding of these discharge instructions. The patient and her caregivers are aware that if any significant change in condition or worsening of symptoms should prompt him to immediately return to this of the closest emergency department. If an emergent department is not readily available I would encourage him to call 911. Lai Disclaimer Dragon Disclaimer This electronic medical record was generated, in whole or in part, using a voice recognition dictation system. Departure Departure Impression: Primary Impression: Abdominal pain Additional Impressions: Feared condition not demonstrated Ovarian cyst Marijuana abuse Near syncope Drug-seeking behavior Disposition: 01 HOME, SELF-CARE (At 2330) Condition: IMPROVED Referrals: NON,STAFF (PCP) Patient Instructions: Abdominal Pain, Nausea and Vomiting, Ovarian Cyst Additional Instructions: Drink plenty of liquids Follow-up with your primary care physician in 2-3 days Return to ER if not getting better Follow-up with your [employer] for evaluation of left ovarian cyst Thank you for visiting [facility]. We appreciate you trusting us with your care. If any additional problems come up don't hesitate to return to visit us. Please follow up with your primary care provider so they can plan additional care if needed and know about the problem that you had. If symptoms worsen come back to the Emergency Department. Any concerning symptoms that start such as chest pain, shortness of air, weakness or numbness on one side of the body, running high fevers or any other concerning symptoms return to the ER. Scripts [Percogesic] No Conflict Check 1 TAB PO Q6HRS PRN for PAIN, #10 Prov: AKILAH JACOME MD 01/11/20 Ondansetron Hcl (ZOFRAN) 4 Mg Tablet 1 TAB PO PRN Q6-8HRS for nausea, #12 TAB Prov: AKILAH JACOME MD 01/11/20 Problem Qualifiers Primary Impression: Abdominal pain Abdominal location: epigastric Qualified Codes: R10.13 - Epigastric pain Additional Impressions: Ovarian cyst Laterality: left Qualified Codes: N83.202 - Unspecified ovarian cyst, left side AKILAH JACOME MD Jan 11, 2020 23:16
[2020-01-11] MEDS ORDERED: Percogesic PO (23:34)
[2020-01-11] MEDS ORDERED: ONDA4TAB7 PO (23:34)
[2020-01-11] MEDS ORDERED: FAMOTIDINE 20 MG/2 ML VIAL IVP ONE (23:45)
[2020-01-12] VITALS: BP 113/65
== END 2020-01-12 00:11 | disposition home or self-care (01) ==
LOC: ER 19:23
DX: N83.202 Unspecified ovarian cyst, left side (principal); R55 Syncope and collapse; Z76.5 Malingerer [conscious simulation]; F12.10 Cannabis abuse, uncomplicated; F17.210 Nicotine dependence, cigarettes, uncomplicated; Z88.2 Allergy status to sulfonamides
CPT/HCPCS: 36415; 74176; 80053; 80307; 81001; 82550; 83690; 83880; 84484; 85025; 85610; 93005; 96361; 96374; 96375; 99285; J2405; J3010; J7030

== ENCOUNTER 2020-07-25 18:02 | Emergency (ER) | payer OTHER ==
[~2020-07-25] VITALS: Ht 162.6 cm; Wt 56.0 kg
[~2020-07-25 18:02] MED LIST changes: +MULT-445 PO; -MULT1TAB52 PO; +Percogesic PO
[2020-07-25 18:43] VITALS: BP 130/68
[2020-07-25] MEDS ORDERED: FAMOTIDINE 20 MG/2 ML VIAL IVP ONE (19:00)
[2020-07-25] MEDS ORDERED: METOCLOPRAMIDE HCL 10 MG/2 ML VIAL. IVP ONE (19:00)
[2020-07-25] MEDS ORDERED: IV NORMAL SALINE 1000ML BAG 1,000 ML IV ONE (19:00)
[2020-07-25 19:01] LABS: BASO % 1 % (0-3); EOS # 0.2 x10^3/uL (0.0-0.7); EOS % 2 % (0-3); HEMOGLOBIN 14.3 g/dL (12.0-15.5); LYMPH # 1.9 x10^3/uL (1.0-4.8); LYMPH % 24 % (24-48); MEAN CORPUSCULAR HEMOGLOBIN 30 pg (25-35); MEAN CORPUSCULAR HGB CONC 33 g/dL (31-37); MEAN CORPUSCULAR VOLUME 89 fL (79-100); MONO # 0.5 x10^3/uL (0.0-1.1); MONO % 6 % (0-9); NEUT # 5.4 x10^3/uL (1.8-7.7); NEUT % 68 % (31-73); PLATELET COUNT 225 x10^3/uL (140-400); RED BLOOD COUNT 4.81 x10^6/uL (3.50-5.40); RED CELL DISTRIBUTION WIDTH 13.8 % (11.5-14.5); WHITE BLOOD COUNT 7.9 x10^3/uL (4.0-11.0)
[2020-07-25 19:10] LABS: CALCIUM 10.5 mg/dL (8.5-10.1); CREATININE 0.6 mg/dL (0.6-1.0); GFR 111.3; POTASSIUM 4.6 mmol/L (3.5-5.1)
[2020-07-25 19:16] LABS: ALBUMIN 3.2 g/dL (3.4-5.0); DIRECT BILIRUBIN 0.1 mg/dL (0.0-0.2); TOTAL BILIRUBIN 0.4 mg/dL (0.2-1.0); TOTAL PROTEIN 6.8 g/dL (6.4-8.2)
--- NOTE | 2020-07-25 19:48 | PHYS DOC ---
Past Medical History Past Medical History: GI Bleed Additional Past Medical Histor: gastric ulcers, gastric bypass Past Surgical History: No Surgical History Additional Past Surgical Histo: RIGHT ROTATOR CUFF, EAR, BLADDER SLING Smoking Status: Current Every Day Smoker Alcohol Use: None Drug Use: None General Adult EDM: Chief Complaint: NAUSEA/VOMITING/DIARRHA HPI: HPI: 40-year-old female past medical history of gastric bypass, peptic ulcer disease and GERD, presents to the ED with complaints of nausea and nonbloody nonbilious vomiting for the past 2 days with heavy, sharp pressure epigastric pain. Patient states she has had these symptoms for the past 4 years and they have been intermittent. Has been seen by GI and diagnosed with peptic ulcer disease- egd "last time I was here." Takes no routine medications. States she has lost a significant amount of weight due to gastric bypass 4 years ago and has no appetite. Last bowel movement was a week and a half ago described as normal brown color. States she was seen at 2 weeks ago and had a lung biopsy performed, does not know the results. Also reports she there's a suspicious lesion on an ovary- History of total abdominal hysterectomy due to cancer. Past surgical history of and cholecystectomy. States her peptic ulcer disease is so severe that she has had a feeding tube. Reports she passed out 3 times today in her kitchen, daughter called EMS. EMR egd in 2019 showed anastomosis 8 mm ulcer but NO stricture. On no AC. Review of Systems: Review of Systems: Constitutional: Denies fever or chills. [] Eyes: Denies change in visual acuity. [] HENT: Denies nasal congestion or sore throat. [] Respiratory: Denies cough or shortness of breath. [] Or hemoptysis Cardiovascular: Denies edema. [] GI: Denies bloody stools or diarrhea. [] no Hematochezia or hematemesis : Denies dysuria. [] Or dysuria or flank pain Musculoskeletal: Denies back pain or joint pain. [] Integument: Denies rash. [] Neurologic: Denies neck stiffness, focal weakness or sensory changes. [] Endocrine: Denies polyuria or polydipsia. [] Lymphatic: Denies swollen glands. [] Psychiatric: Denies depression or anxiety. [] Heart Score: Risk Factors: Risk Factors: DM, Current or recent (<one month) smoker, HTN, HLP, family history of CAD, obesity. Risk Scores: Score 0 - 3: 2.5% MACE over next 6 weeks - Discharge Home Score 4 - 6: 20.3% MACE over next 6 weeks - Admit for Clinical Observation Score 7 - 10: 72.7% MACE over next 6 weeks - Early Invasive Strategies Current Medications: Current Medications Medications (Trade) Dose Ordered Sig/Marilyn Start Time Stop Time Status Last Admin Dose Admin Famotidine (Pepcid Vial) 20 mg 1X ONCE 07/25/20 19:00 07/25/20 19:34 DC 07/25/20 19:43 20 MG Metoclopramide HCl (Reglan Vial) 10 mg 1X ONCE 07/25/20 19:00 07/25/20 19:34 DC 07/25/20 19:42 10 MG Sodium Chloride 1,000 ml @ 1,000 mls/hr 1X ONCE 07/25/20 19:00 07/25/20 19:59 07/25/20 19:42 1,000 MLS/HR Allergies: Allergies: Allergies Coded Allergies Type Severity Reaction Last Updated Verified Sulfa (Sulfonamide Antibiotics) Allergy Intermediate hives 03/18/19 No Physical Exam: PE: Constitutional: Well developed, well nourished, no acute distress, non-toxic appearance. [] HENT: Normocephalic, atraumatic, bilateral external ears normal, oropharynx moist, no oral exudates, nose normal. [] Eyes: EOMI, conjunctiva normal, no discharge. [] Neck: Normal range of motion, no tenderness, supple, no stridor. [] Cardiovascular:Heart rate regular rhythm, no murmur [] Lungs & Thorax: Bilateral breath sounds clear to auscultation [] Abdomen: Bowel sounds normal, soft, mild epigastric tenderness, no masses, no pulsatile masses. [] 5-10 cc clear emesis in bag Skin: Warm, dry, no erythema, no rash. [] Back: No tenderness, no CVA tenderness. [] Extremities: No tenderness, no cyanosis, no clubbing, ROM intact, no edema. [] Neurologic: Alert and oriented X 3, normal motor function, normal sensory funct ion, no focal deficits noted. [] Psychologic: Affect normal, judgement normal, mood normal. [] Current Patient Data: Labs: Laboratory Tests Test 9/23/20 18:20 White Blood Count 7.9 x10^3/uL (4.0-11.0) Red Blood Count 4.81 x10^6/uL (3.50-5.40) Hemoglobin 14.3 g/dL (12.0-15.5) Hematocrit 43.0 % (36.0-47.0) Mean Corpuscular Volume 89 fL (79-100) Mean Corpuscular Hemoglobin 30 pg (25-35) Mean Corpuscular Hemoglobin Concent 33 g/dL (31-37) Red Cell Distribution Width 13.8 % (11.5-14.5) Platelet Count 225 x10^3/uL (140-400) Neutrophils (%) (Auto) 68 % (31-73) Lymphocytes (%) (Auto) 24 % (24-48) Monocytes (%) (Auto) 6 % (0-9) Eosinophils (%) (Auto) 2 % (0-3) Basophils (%) (Auto) 1 % (0-3) Neutrophils # (Auto) 5.4 x10^3/uL (1.8-7.7) Lymphocytes # (Auto) 1.9 x10^3/uL (1.0-4.8) Monocytes # (Auto) 0.5 x10^3/uL (0.0-1.1) Eosinophils # (Auto) 0.2 x10^3/uL (0.0-0.7) Basophils # (Auto) 0.0 x10^3/uL (0.0-0.2) Sodium Level 142 mmol/L (136-145) Potassium Level 4.6 mmol/L (3.5-5.1) Chloride Level 105 mmol/L (98-107) Carbon Dioxide Level 30 mmol/L (21-32) Anion Gap 7 (6-14) Blood Urea Nitrogen 9 mg/dL (7-20) Creatinine 0.6 mg/dL (0.6-1.0) Estimated GFR (Cockcroft-Gault) 111.3 Glucose Level 87 mg/dL (70-99) Calcium Level 10.5 mg/dL (8.5-10.1) H Total Bilirubin 0.4 mg/dL (0.2-1.0) Direct Bilirubin 0.1 mg/dL (0.0-0.2) Aspartate Amino Transferase (AST) 10 U/L (15-37) L Alanine Aminotransferase (ALT) 12 U/L (14-59) L Alkaline Phosphatase 125 U/L (46-116) H Creatine Kinase 19 U/L (26-192) L Troponin I Quantitative < 0.017 ng/mL (0.000-0.055) Total Protein 6.8 g/dL (6.4-8.2) Albumin 3.2 g/dL (3.4-5.0) L Lipase 59 U/L (73-393) L Laboratory Tests 07/25/20 18:20 Laboratory Tests 07/25/20 18:20 Vital Signs: Vital Signs Date Time Temp Pulse Resp B/P (MAP) Pulse Ox O2 Delivery O2 Flow Rate FiO2 07/25/20 18:43 98.3 80 18 130/68 (88) 99 Room Air 98.3 EKG: EKG: Sinus rhythm at 72 bpm, no axis deviation, normal intervals, no T wave inversions, no ST elevations or ST depressions Radiology/Procedures: Radiology/Procedures: []IMAGING REPORT Signed PATIENT: MARIETTA MEHTA DACCOUNT: [id number] : 1980 LOCATION: ER AGE: 40 SEX: F EXAM STATUS: REG ER ORD. PHYSICIAN: KORY BRAMBILA DO REASON: syncope PROCEDURE: CT HEAD WO CONTRAST STUDY: CT head without contrast INDICATION: Syncope. COMPARISON: 03/16/2019 TECHNIQUE: Axial CT imaging through the head without the use of intravenous contrast. Sagittal and coronal reformats were obtained. One or more of the following individualized dose reduction techniques were utilized for this examination: 1. Automated exposure control 2. Adjustment of the mA and/or kV according to patient size 3. Use of iterative reconstruction technique. FINDINGS: No acute intracranial hemorrhage. Agiurre-white matter differentiation is maintained. No mass effect, midline shift or hydrocephalus. No large scalp hematoma. The visualized orbits are unremarkable. Intact calvarium. Unchanged mastoid air cells and middle ears. The visualized paranasal sinuses are normally aerated. IMPRESSION: No acute intracranial abnormality by CT. No significant change from 03/16/2019. Electronically signed by: DIDI STAPLETON MD (07/25/2020 8:24 PM) [id number] DICTATED and SIGNED BY: DIDI STAPLETON MD DATE: 07/25/202023 IMAGING REPORT Signed PATIENT: MARIETTA MEHTA DACCOUNT: [id number] : 1980 LOCATION: ER AGE: 40 SEX: F EXAM STATUS: REG ER ORD. PHYSICIAN: KORY BRAMBILA DO REASON: epigastric pain PROCEDURE: PORTABLE CHEST 1V AP chest x-ray HISTORY: Epigastric pain. FINDINGS: Heart size normal. Mediastinal silhouette is normal. No pneumothorax, pulmonary opacities or pleural effusions. Bones are unremarkable. IMPRESSION: No acute process. Electronically signed by: Celia Lopez MD (07/25/2020 8:18 PM) [facility] [place]ATED and SIGNED BY: CELIA LOPEZ MD DATE: 07/25/202017 IMAGING REPORT Signed PATIENT: MARIETTA MEHTA DACCOUNT: [id number] : 1980 LOCATION: ER AGE: 40 SEX: F EXAM STATUS: REG ER ORD. PHYSICIAN: KORY BRAMBILA DO REASON: epigastric pain PROCEDURE: CT ABD PELV W/ IV CONTRST ONLY PQRS Compliance Statement: One or more of the following individualized dose reduction techniques were utilized for this examination: 1. Automated exposure control 2. Adjustment of the mA and/or kV according to patient size 3. Use of iterative reconstruction technique CT ABD PELV W/ IV CONTRST ONLY Clinical Indication: Reason: epigastric pain / Spl. Comparison: CT abdomen and pelvis without contrast, January 11, 2020. Technique: Helical CT imaging of the abdomen and pelvis is performed after 75 cc of Omnipaque 300 IV contrast. Oral contrast not administered. Findings: Cavitary nodule in the right lower lobe has been present on multiple prior studies. In 2018 the nodule was not cavitary but is stable in size. There is partially calcified subcarinal lymph node measuring 2.1 cm. Partially calcified right infrahilar lymph nodes have been previously described. Cardiac size is normal. Cholecystectomy. Liver, spleen, pancreas, adrenal glands, and abdominal aorta are normal. Kidneys enhance symmetrically, no hydronephrosis. Stable right renal calculus. Postsurgical changes of gastric bypass redemonstrated. There is no dilated small bowel. The appendix is normal. There is mild wall thickening of the ascending colon. Scattered stool in the colon. Urinary bladder is normal. There is moderate air in the vagina, similar to prior study. Hysterectomy. No pelvic free fluid. Left adnexal cyst measures 3.5 cm, on prior study measuring 4.9 cm. Right pubic ramus bone island. IMPRESSION: 1. Wall thickening of the ascending colon suggests mild colitis, probably infectious or inflammatory bowel disease. 2. Left adnexal cyst is smaller than on prior study. No pelvic free fluid. 3. Relative stability of cavitary nodule in the right lower lobe. Partially calcified enlarged subcarinal lymph node. If not previously performed consider outpatient CT chest. 4. Nonobstructing right renal calculus. Electronically signed by: Yan Pringle MD (07/25/2020 8:44 PM) [facility] Course & Med Decision Making: Course & Med Decision Making Pertinent Labs and Imaging studies reviewed. (See chart for details) Concern for nausea, vomiting, epigastric abdominal pain in the setting of known anastomotic ulcer-EGD was in 2019. ED imaging concerning for colitis, nonobstructive nephrolithiasis. Left adnexal cyst is smaller than on prior study. Patient with known right lower lobe nodule that was biopsied at [facility]. Patient afebrile with no leukocytosis. Troponin and lipase are normal. Drug screen positive for cocaine and opioids. Patient now with full resolution of symptoms is requested to be discharged home. Pt is calm and resting, in no d istress. DC home with antibiotics, antiemetics and short dose of Carafate. Strict ED return precautions given for dehydration, severe pain, bloody stools or dark stools/signs of GI bleed. Encouraged urgent outpatient follow-up with PMD and GI in the next week. Life-threatening processes were considered but are low suspicion at this time, given history and physical exam. Pt was educated on all prescription medications and adverse effects. All patient's questions were answered and pt was stable at time of discharge. Differential includes aortic dissection, aortic aneurysm, acute coronary s yndrome, surgical abdomen (appendicitis, cholecystitis, ischemic bowel, strangulated hernia, etc), bowel obstruction or volvulus, bladder outlet obstruction, gastrointestinal bleeding, inflammatory bowel disease, peptic ulcer disease, sepsis, diverticular disease, ureterolithiasis, nephrolithiasis, ovarian or testicular torsion, ectopic , vaginal hemorrhage of infection, cocaine chest pain I spoken with the patient and her caregivers. I explained the patient's condition, diagnoses and treatment plan based on the information available to me at this time. I have answered the patient and her caregiver's questions and addressed any concerns. The patient and her caregivers have a good understanding of patient's diagnosis, condition and treatment plan as can be expected at this point. Vital signs have been stable. Patient's condition is stable and appropriate for discharge from the emergency department. Patient will pursue further outpatient evaluation with primary care physician or other designated or consulting physician as outlined in the discharge instructions. The patient and/or caregivers are agreeable to this plan of care and follow-up instructions have been explained in detail. The patient and/or caregivers have received these instructions in written form and have expressed an understanding of the discharge instructions. The patient and/or caregivers are aware that any significant change of condition or worsening of symptoms should prompt immediate return to this or the closest emergency department or call to [employer] Lai Disclaimer: Room 21 Media Disclaimer: This electronic medical record was generated, in whole or in part, using a voice recognition dictation system. Departure Departure Impression: Primary Impression: Colitis Additional Impression: Nausea & vomiting Disposition: 01 HOME, SELF-CARE Condition: STABLE Referrals: NO PCP (PCP) Patient Instructions: Colitis, Nausea and Vomiting Additional Instructions: Shiloh Woodson MD Primary Specialties Gastroenterology -in 1-2 weeks for EGD/upper endoscopy [facility] Address: [address] [place] [address] EMERGENCY DEPARTMENT GENERAL DISCHARGE INSTRUCTIONS Thank you for coming to [facility] Emergency Department (ED) today and trusting us with you care. We trust that you had a positive experience in our Emergency Department. If you wish to speak to the department management, you may call the Director at [phone]. YOUR FOLLOW UP INSTRUCTIONS ARE FOLLOWS: 1. Do you have a private Doctor? If you do not have a private doctor, please ask for a resource list of physicians or clinics that may be able to assist you with follow up care. 2. The Emergency Physicain has interpreted your x-rays. The X-Ray specialist will also review them. If there is a change in the findings, you will be notified in 48 hours when at all possible. 3. A lab test or culture has been done, your results will be reviewed and you will be notified if you need a change in treatment. ADDITIONAL INSTRUCTIONS AND INFORMATION: 1. Your care today has been supervised by a physician who is specially trained in emergency care. Many problems require more than one evaluation for a complete diagnosis and treatment. We recommend that you schedule your follow up appointment as niranjan mmended to ensure complete treatment of you illness or injury. If you are unable to obtain follow up care and continue to have a problem, or if your condition worsens, we recommend that you return to the ED. 2. We are not able to safely determine your condition over the phone nor are we able to give sound medical advice over the phone. For these safety reasons, if you call for medical advice we will ask you to come to the ED for further evaluation. 3. If you have any questions regarding these discharge instructions please call the ED at [phone]. SAFETY INFORMATION: In the interest of safety, wellness, and injury prevention; we encourage you to wear your sealbelt, if you smoke; quite smoking, and we encourage family to use a protective helmet for bicycling and other sporting events that present an increased risk for head injury. IF YOUR SYMPTOMS WORSEN OR NEW SYMPTOMS DEVELOP, OR YOU HAVE CONCERNS ABOUT YOUR CONDITION; OR IF YOUR CONDITION WORSENS WHILE YOU ARE WAITING FOR YOUR FOLLOW UP APPOINTMENT; EITHER CONTACT YOUR PRIMARY CARE DOCTOR, THE PHYSICIAN WHOSE NAME AND NUMBER YOU WERE GIVEN, OR RETURN TO THE ED IMMEDIATELY. Scripts Sucralfate (CARAFATE) 1 Gm Tablet 1 GM PO BID for 14 Days, #28 TAB Prov: KORY BRAMBILA DO 07/25/20 Ciprofloxacin Hcl (CIPRO) 250 Mg Tablet 2 TAB PO BID for infection for 5 Days, #20 TAB Prov: KORY BRAMBILA DO 07/25/20 Ondansetron Hcl (ZOFRAN) 4 Mg Tablet 1 TAB PO PRN Q6-8HRS for nausea, #12 TAB Prov: KORY BRAMBILA DO 07/25/20 Justicifation of Admission Dx: Justifications for Admission: Justification of Admission Dx: N/A VOKORY VOGT DO Jul 25, 2020 19:48
[2020-07-25] MEDS ORDERED: SUCRALFATE 1 GM/10 ML ORAL.SUSP. PEG ONE (20:00)
[2020-07-25] MEDS ORDERED: IOHEXOL 300 MG/ML 100ML VIAL. IV ONE (20:15)
--- NOTE | 2020-07-25 20:21 | RAD ---
AP chest x-ray HISTORY: Epigastric pain. FINDINGS: Heart size normal. Mediastinal silhouette is normal. No pneumothorax, pulmonary opacities or pleural effusions. Bones are unremarkable. IMPRESSION: No acute process. Electronically signed by: Zia Lopez MD (07/25/2020 8:18 PM) [facility]
--- NOTE | 2020-07-25 20:28 | RAD ---
STUDY: CT head without contrast INDICATION: Syncope. COMPARISON: 03/16/2019 TECHNIQUE: Axial CT imaging through the head without the use of intravenous contrast. Sagittal and coronal reformats were obtained. One or more of the following individualized dose reduction techniques were utilized for this examination: 1. Automated exposure control 2. Adjustment of the mA and/or kV according to patient size 3. Use of iterative reconstruction technique. FINDINGS: No acute intracranial hemorrhage. Aguirre-white matter differentiation is maintained. No mass effect, midline shift or hydrocephalus. No large scalp hematoma. The visualized orbits are unremarkable. Intact calvarium. Unchanged mastoid air cells and middle ears. The visualized paranasal sinuses are normally aerated. IMPRESSION: No acute intracranial abnormality by CT. No significant change from 03/16/2019. Electronically signed by: DIDI STAPLETON MD (07/25/2020 8:24 PM) [id number]
[2020-07-25] MEDS ORDERED: CONTRAST GIVEN. MC PRN (20:45)
--- NOTE | 2020-07-25 20:47 | RAD ---
PQRS Compliance Statement: One or more of the following individualized dose reduction techniques were utilized for this examination: 1. Automated exposure control 2. Adjustment of the mA and/or kV according to patient size 3. Use of iterative reconstruction technique CT ABD PELV W/ IV CONTRST ONLY Clinical Indication: Reason: epigastric pain / Spl. Comparison: CT abdomen and pelvis without contrast, January 11, 2020. Technique: Helical CT imaging of the abdomen and pelvis is performed after 75 cc of Omnipaque 300 IV contrast. Oral contrast not administered. Findings: Cavitary nodule in the right lower lobe has been present on multiple prior studies. In 2018 the nodule was not cavitary but is stable in size. There is partially calcified subcarinal lymph node measuring 2.1 cm. Partially calcified right infrahilar lymph nodes have been previously described. Cardiac size is normal. Cholecystectomy. Liver, spleen, pancreas, adrenal glands, and abdominal aorta are normal. Kidneys enhance symmetrically, no hydronephrosis. Stable right renal calculus. Postsurgical changes of gastric bypass redemonstrated. There is no dilated small bowel. The appendix is normal. There is mild wall thickening of the ascending colon. Scattered stool in the colon. Urinary bladder is normal. There is moderate air in the vagina, similar to prior study. Hysterectomy. No pelvic free fluid. Left adnexal cyst measures 3.5 cm, on prior study measuring 4.9 cm. Right pubic ramus bone island. IMPRESSION: 1. Wall thickening of the ascending colon suggests mild colitis, probably infectious or inflammatory bowel disease. 2. Left adnexal cyst is smaller than on prior study. No pelvic free fluid. 3. Relative stability of cavitary nodule in the right lower lobe. Partially calcified enlarged subcarinal lymph node. If not previously performed consider outpatient CT chest. 4. Nonobstructing right renal calculus. Electronically signed by: Yan Pringle MD (07/25/2020 8:44 PM) [facility]
[2020-07-25 21:20] LABS: BARBITURATES NEG (NEG); BENZODIAZEPINES NEG (NEG); CANNABINOIDS POS (NEG); COCAINE POS (NEG); METHADONE NEG (NEG); OPIATES NEG (NEG); PHENCYCLIDINE NEG (NEG)
[2020-07-25 21:21] LABS: AMPHETAMINE/METHAMPHETAMINE NEG (NEG)
[2020-07-25] MEDS ORDERED: ONDA4TAB7 PO (22:50)
[2020-07-25] MEDS ORDERED: CIPR250T30 PO (22:50)
[2020-07-25] MEDS ORDERED: SUCR1TAB35 PO (22:50)
--- NOTE | 2020-07-26 06:06 | EKG ---
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
== END 2020-07-25 23:45 | disposition home or self-care (01) ==
LOC: ER 18:02
DX: K52.9 Noninfective gastroenteritis and colitis, unspecified (principal); R11.2 Nausea with vomiting, unspecified; R10.13 Epigastric pain; R55 Syncope and collapse; K21.9 Gastro-esophageal reflux disease without esophagitis; F17.200 Nicotine dependence, unspecified, uncomplicated; Z98.890 Other specified postprocedural states
CPT/HCPCS: 36415; 70450; 71045; 74177; 80048; 80076; 80307; 81025; 82550; 83690; 84484; 85025; 93005; 96361; 96374; 96375; 99285; J2765; J3490; J7030; Q9967

== ENCOUNTER 2021-05-20 00:28 | Emergency (ER) | payer OTHER ==
[~2021-05-20] VITALS: Ht 167.6 cm; Wt 54.0 kg
[~2021-05-20 00:28] MED LIST changes: +CIPR250T30 PO; -OMEP40CA45 PO; +OMEP40CA7 PO; +SUCR1TAB35 PO
--- NOTE | 2021-05-20 01:17 | PHYS DOC ---
Past Medical History Past Medical History: GI Bleed Additional Past Medical Histor: gastric ulcers, gastric bypass,"LUMPS ON MY LUNGS" ?LUNG CANCER 2019 Past Surgical History: Other Additional Past Surgical Histo: RIGHT ROTATOR CUFF, EAR, BLADDER SLING,GASTRIC BYPASS Smoking Status: Never Smoker Alcohol Use: None Drug Use: None General Adult EDM: Chief Complaint: DIZZY/LIGHT HEADED HPI: HPI: 41-year-old female with past medical history of gastric bypass, presents the ED with complaints of intermittent dizziness described as present only with movement changes, nausea, nonbloody nonbilious vomiting x8 earlier today, diffuse, gradual onset headache for the past 3 days. Patient states "I don't feel well," with fatigue and weakness. 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 Reports associated epigastric abdominal distress after vomiting. Review of Systems: Review of Systems: Constitutional: Denies lack of taste or smell Eyes: Denies change in visual acuity. [] HENT: Denies nasal congestion or sore throat. [] Respiratory: Denies cough or shortness of breath. [] Cardiovascular: Denies chest pain or edema. [] GI: Denies bloody stools or diarrhea. [] : Denies dysuria or vaginal bleeding Musculoskeletal: Denies back pain or joint pain. [] Integument: Denies rash or diaphoresis Neurologic: Denies neck stiffness, focal weakness or sensory changes. [] Endocrine: Denies polyuria or polydipsia. [] Lymphatic: Denies swollen glands. [] Psychiatric: Denies depression or anxiety. [] Heart Score: C/O Chest Pain: No Risk Factors: Risk Factors: DM, Current or recent (<one month) smoker, HTN, HLP, family history of CAD, obesity. Risk Scores: Score 0 - 3: 2.5% MACE over next 6 weeks - Discharge Home Score 4 - 6: 20.3% MACE over next 6 weeks - Admit for Clinical Observation Score 7 - 10: 72.7% MACE over next 6 weeks - Early Invasive Strategies Current Medications: Current Medications Medications (Trade) Dose Ordered Sig/Marilyn Start Time Stop Time Status Last Admin Dose Admin Ondansetron HCl (Zofran Odt) 4 mg 1X ONCE 05/20/21 01:30 05/20/21 01:31 Allergies: Allergies: Allergies Coded Allergies Type Severity Reaction Last Updated Verified Sulfa (Sulfonamide Antibiotics) Allergy Intermediate hives 03/18/19 No Physical Exam: PE: Constitutional: Nontoxic appearing, but does appear frail and slightly dehydrated, is curled in ED stretcher/resting HENT: Normocephalic, atraumatic, dry mucous membranes Eyes: EOMI, conjunctiva normal, no discharge. Neck: Normal range of motion, supple, Cardiovascular: S1/2 present, regular rhythm Lungs & Thorax: Speaking in full sentences, bilateral equal chest rise, no tachypnea or increased work of breathing Abdomen: soft, no rigidity or guarding, mild epigastric abdominal discomfort, no Phillips sign Skin: Warm, dry, no erythema, no rash. [] Extremities: No tenderness, no cyanosis, no lower extremity edema Neurologic: Alert and oriented X 3, normal motor function, normal sensory function, no focal deficits noted, ambulated to the ED stretcher/steady gait w/no ataxic Psychologic: Affect normal, judgement normal, mood normal. [] Current Patient Data: Vital Signs: Vital Signs Date Time Temp Pulse Resp B/P (MAP) Pulse Ox O2 Delivery O2 Flow Rate FiO2 05/20/21 00:41 98.3 87 16 109/63 (88) 98 Room Air 98.3 EKG: EKG: Sinus rhythm 80 bpm, no axis deviation, normal intervals, no T wave inversions, no ST elevations or ST depressions, no active chest pain Radiology/Procedures: Radiology/Procedures: IMAGING REPORT Signed PATIENT: MARIETTA MEHTA DACCOUNT: [id number] : 1980 LOCATION: ER AGE: 41 SEX: F EXAM STATUS: REG ER ORD. PHYSICIAN: KORY BRAMBILA DO REASON: vomiting PROCEDURE: CHEST AP ONLY XR CHEST 1V INDICATION: Reason: vomiting / Spl. Instructions: / History: . COMPARISON STUDY: None. FINDINGS: Lungs: Normal lung volume. No pulmonary mass or consolidation. The tracheobronchial tree and hilar structures are normal. Pleura: No pleural effusion or pneumothorax. Heart and Mediastinum: The cardiomediastinal silhouette is normal. The great vessels of the thorax are normal. Bones and Soft Tissues: The bones and soft tissues are within normal limits. IMPRESSION: No acute cardiopulmonary process. Electronically signed by: Patricia Yi MD (05/20/2021 2:19 AM) [facility] DICTATED and SIGNED BY: PATRICIA YI MD DATE: 05/20/21 [id number] 0 Course & Med Decision Making: Course & Med Decision Making Pertinent Labs and Imaging studies reviewed. (See chart for details) COVID-19 CRITERIA: The patient was evaluated during the global COVID-19 pandemic, and that diagnosis was suspected/considered upon their initial presentation. Their evaluation, treatment and testing was consistent with current guidelines for patients who present with complaints or symptoms that may be related to COVID-19. Concern for headache, nausea, vomiting, body aches, weakness and fatigue, Covid test pending. Dizziness not present at rest. Patient treated with antiemetics, migraine cocktail and IV fluids. Prescribe ODT Zofran. Will discharge home with strict ED return precautions were given for compete, neurologic deficits, difficulties breathing, dyspnea, dehydration or chest pain. Encouraged urgent outpatient follow-up with PMD for reevaluation. Life-threatening processes were considered but are low suspicion at this time, given history, physical exam and ED workup. Pt was educated on all prescription medications and adverse effects. All patient's questions were answered and pt was stable at time of discharge. Life/limb-threatening differential includes but is not limited to, airway emergency or respiratory distress/ARDS or fatigue or head or neck swelling, toxidrome, sepsis/shock, angioedema, anaphylaxis, congestive heart failure, myocarditis, acute myocardial infarction, dysrhythmias, cardiomyopathy, venous thromboembolism, pulmonary emboli, acute necrotizing hemorrhagic encephalopathy ,cerebral venous thrombosis, meningitis, encephalitis or CVA. I have spoken with the patient and/or caregivers. I explained the patient's condition, diagnoses and treatment plan based on the information available to me at this time. I have answered the patient and/or caregiver's questions and addressed any concerns. The patient and/or caregivers have a good understanding of patient's diagnosis, condition and treatment plan as can be expected at this point. Vital signs have been stable. Patient's condition is stable and appropriate for discharge from the emergency department. Patient will pursue further outpatient evaluation with primary care physician or other designated or consulting physician as outlined in the discharge instructions. The patient and/or caregivers are agreeable to this plan of care and follow-up instructions have been explained in detail. The patient and/or c aregivers have received these instructions in written form and have expressed an understanding of the discharge instructions. The patient and/or caregivers are aware that any significant change of condition or worsening of symptoms should prompt immediate return to this or the closest emergency department or call to 911. Lai Disclaimer: Lai Disclaimer: This electronic medical record was generated, in whole or in part, using a voice recognition dictation system. Departure Departure Impression: Primary Impression: Person under investigation for COVID-19 Additional Impression: Vomiting Disposition: HOME / SELF CARE / HOMELESS Condition: STABLE Referrals: NO PCP (PCP) Follow-up with your primary care physician in 24 to 48 hours OR FOLLOW UP WITH FAMILY MEDICINE: [address], [address] [place] [address] Patient Instructions: General Headache Without Cause, Nausea and Vomiting Additional Instructions: Return to ED immediately if your oxygen level drops below 90% (purchase a pulse oximetry at a medical supply store), difficulties breathing including rapid breathing or increased work of breathing (skin sucking under ribs), chest pain or stroke-like symptoms (facial droop, speech changes, arm/leg weakness). EMERGENCY DEPARTMENT GENERAL DISCHARGE INSTRUCTIONS Thank you for coming to [facility] Emergency Department (ED) today and trusting us with you care. We trust that you had a positive experience in our Emergency Department. If you wish to speak to the department management, you may call the Director at [phone]. YOUR FOLLOW UP INSTRUCTIONS ARE FOLLOWS: 1. Do you have a private Doctor? If you do not have a private doctor, please ask for a resource list of physicians or clinics that may be able to assist you with follow up care. 2. The Emergency Physicain has interpreted your x-rays. The X-Ray specialist will also review them. If there is a change in the findings, you will be notified in 48 hours when at all possible. 3. A lab test or culture has been done, your results will be reviewed and you will be notified if you need a change in treatment. ADDITIONAL INSTRUCTIONS AND INFORMATION: 1. Your care today has been supervised by a physician who is specially trained in emergency care. Many problems require more than one evaluation for a complete diagnosis and treatment. We recommend that you schedule your follow up appointment as recommended to ensure complete treatment of you illness or injury. If you are unable to obtain follow up care and continue to have a problem, or if your condition worsens, we recommend that you return to the ED. 2. We are not able to safely determine your condition over the phone nor are we able to give sound medical advice over the phone. For these safety reasons, if you call for medical advice we will ask you to come to the ED for further evaluation. 3. If you have any questions regarding these discharge instructions please call the ED at [phone]. SAFETY INFORMATION: In the interest of safety, wellness, and injury prevention; we encourage you to wear your sealbelt, if you smoke; quite smoking, and we encourage family to use a protective helmet for bicycling and other sporting events that present an increased risk for head injury. IF YOUR SYMPTOMS WORSEN OR NEW SYMPTOMS DEVELOP, OR YOU HAVE CONCERNS ABOUT YOUR CONDITION; OR IF YOUR CONDITION WORSENS WHILE YOU ARE WAITING FOR YOUR FOLLOW UP APPOINTMENT; EITHER CONTACT YOUR PRIMARY CARE DOCTOR, THE PHYSICIAN WHOSE NAME AND NUMBER YOU WERE GIVEN, OR RETURN TO THE ED IMMEDIATELY. Scripts Ondansetron (ONDANSETRON ODT) 4 Mg Tab.rapdis 1 TAB PO PRN Q6-8HRS, #20 TAB Prov: KORY BRAMBILA DO 05/20/21 KORY BRAMBILA DO May 20, 2021 01:17
[2021-05-20] MEDS ORDERED: DEXAMETHASONE SOD PHOS 20 MG/5 ML VIAL. IV ONE (01:30)
[2021-05-20] MEDS ORDERED: ONDANSETRON ODT 4 MG TAB.RAPDIS. PO ONE (01:30)
[2021-05-20] MEDS ORDERED: IV NORMAL SALINE 1000ML BAG 1,000 ML IV ONE ×2 (01:30→03:30)
[2021-05-20] MEDS ORDERED: PROCHLORPERAZINE 10 MG/2 ML VIAL. IV ONE (01:30)
--- NOTE | 2021-05-20 02:21 | RAD ---
XR CHEST 1V INDICATION: Reason: vomiting / Spl. Instructions: / History: . COMPARISON STUDY: None. FINDINGS: Lungs: Normal lung volume. No pulmonary mass or consolidation. The tracheobronchial tree and hilar st ructures are normal. Pleura: No pleural effusion or pneumothorax. Heart and Mediastinum: The cardiomediastinal silhouette is normal. The great vessels of the thorax ar e normal. Bones and Soft Tissues: The bones and soft tissues are within normal limits. IMPRESSION: No acute cardiopulmonary process. Electronically signed by: Bob Yi MD (05/20/2021 2:19 AM) [facility]
[2021-05-20 02:41] LABS: BASO # 0.1 x10^3/uL (0.0-0.2); BASO % 1 % (0-3); EOS # 0.2 x10^3/uL (0.0-0.7); EOS % 3 % (0-3); HEMATOCRIT 39.7 % (36.0-47.0); HEMOGLOBIN 13.2 g/dL (12.0-15.5); LYMPH # 2.7 x10^3/uL (1.0-4.8); LYMPH % 42 % (24-48); MEAN CORPUSCULAR HEMOGLOBIN 29 pg (25-35); MEAN CORPUSCULAR HGB CONC 33 g/dL (31-37); MEAN CORPUSCULAR VOLUME 88 fL (79-100); MONO # 0.5 x10^3/uL (0.0-1.1); MONO % 8 % (0-9); NEUT # 2.9 x10^3/uL (1.8-7.7); NEUT % 46 % (31-73); PLATELET COUNT 146 x10^3/uL (140-400); RED BLOOD COUNT 4.52 x10^6/uL (3.50-5.40); RED CELL DISTRIBUTION WIDTH 13.8 % (11.5-14.5); WHITE BLOOD COUNT 6.4 x10^3/uL (4.0-11.0)
[2021-05-20 02:55] LABS: CALCIUM 9.5 mg/dL (8.5-10.1); CREATININE 0.6 mg/dL (0.6-1.0); GFR 110.7; POTASSIUM 4.2 mmol/L (3.5-5.1)
[2021-05-20 02:59] LABS: PREG TEST PT QUAL NEGATIVE (NEG)
[2021-05-20 03:01] LABS: ALBUMIN 2.9 g/dL (3.4-5.0); TOTAL BILIRUBIN 0.4 mg/dL (0.2-1.0); TOTAL PROTEIN 5.7 g/dL (6.4-8.2)
[2021-05-20] MEDS ORDERED: ONDA4TAB12 PO (03:16)
[2021-05-20 03:19] VITALS: BP 88/51
--- NOTE | 2021-05-20 05:19 | EKG ---
[facility] [address] [place] [address] Test Date: 2021-05-20 Test Time: 00:42:07 Pat Name: MARIETTA MEHTA Department: Room: Gender: F Clinical Informatics Physician: : 1980 Requested By: KORY BRAMBILA Order Number: [id number] Reading MD: Measurements Intervals [place] Rate: 88 P: 51 TN: 124 QRS: 59 QRSD: 88 T: 90 QT: 334 QTc: 407 Interpretive Statements SINUS RHYTHM T ABNORMALITY IN HIGH LATERAL LEADS ABNORMAL ECG RI6.01 Compared to ECG 05/20/2021 00:40:47 T-wave abnormality now present Atrial flutter no longer present
--- NOTE | 2021-05-20 05:31 | EKG ---
[facility] [address] [place] [address] Test Date: 2021-05-20 Test Time: 00:40:47 Pat Name: MARIETTA MEHTA Department: Room: Gender: F Pet Counselor: : 1980 Requested By: KORY BRAMBILA Order Number: [id number] Reading MD: Measurements Intervals [place] Rate: 86 P: [place]: QRS: 58 QRSD: 90 T: 52 QT: 334 QTc: 402 Interpretive Statements ATRIAL FLUTTER QRS(T) CONTOUR ABNORMALITY CONSIDER ANTEROLATERAL MYOCARDIAL DAMAGE CONSIDER INFERIOR MYOCARDIAL DAMAGE ABNORMAL ECG RI6.01 No previous ECG available for comparison
--- NOTE | 2021-05-22 08:16 | NUR ---
IP: Attempted to contact pt concerning covid results. Phone number provided is a wrong number per person who answered the phone.
== END 2021-05-20 04:34 | disposition home or self-care (01) ==
LOC: ER 00:28
DX: R11.2 Nausea with vomiting, unspecified (principal); Z20.822 Contact with and (suspected) exposure to COVID-19; R42 Dizziness and giddiness; R51.9 Headache, unspecified; R53.1 Weakness; R10.13 Epigastric pain; R53.83 Other fatigue; Z98.84 Bariatric surgery status
CPT/HCPCS: 36415; 71045; 80053; 83690; 83735; 84484; 84703; 85025; 87426; 93005; 96361; 96374; 96375; 99285; J0780; J1100; J7030; U0003; U0005

== ENCOUNTER 2021-06-27 21:48 | Emergency (ER) | payer OTHER ==
[~2021-06-27] VITALS: Ht 165.1 cm; Wt 50.0 kg
[2021-06-28 00:20] VITALS: BP 110/61
[2021-06-28] MEDS ORDERED: CEPH250C PO (00:35)
--- NOTE | 2021-06-28 00:35 | PHYS DOC ---
Past Medical History Past Medical History: GI Bleed Additional Past Medical Histor: gastric ulcers, gastric bypass,"LUMPS ON MY LUNGS" ?LUNG CANCER 2019 Past Surgical History: Other Additional Past Surgical Histo: RIGHT ROTATOR CUFF, EAR, BLADDER SLING,GASTRIC BYPASS Smoking Status: Never Smoker Alcohol Use: None Drug Use: None General Adult EDM: Chief Complaint: Lesion on the sole of her foot HPI: HPI: 41-year-old female presents to the emergency department complaining of a wart like lesion at the base of her left foot in the past several weeks, she says "I have been picking at it but they told me in the clinic they could not freeze it off because they did not have the tools", she denies any pain in the foot, no fevers or chills, denies any leg pain or leg swelling, no known history of thromboembolism, denies any recent falls or injuries Review of Systems: Review of Systems: Constitutional: Denies fever or chills. [] Eyes: Denies change in visual acuity. [] HENT: Denies nasal congestion or sore throat. [] Respiratory: Denies cough or shortness of breath. [] Cardiovascular: Denies chest pain or edema. [] GI: Denies abdominal pain, nausea, vomiting, bloody stools or diarrhea. [] : Denies dysuria. [] Musculoskeletal: Denies back pain or joint pain. [] Integument: Denies rash. [] Neurologic: Denies headache, focal weakness or sensory changes. [] Endocrine: Denies polyuria or polydipsia. [] Lymphatic: Denies swollen glands. [] Psychiatric: Denies depression or anxiety. [] Heart Score: C/O Chest Pain: No Risk Factors: Risk Factors: DM, Current or recent (<one month) smoker, HTN, HLP, family history of CAD, obesity. Risk Scores: Score 0 - 3: 2.5% MACE over next 6 weeks - Discharge Home Score 4 - 6: 20.3% MACE over next 6 weeks - Admit for Clinical Observation Score 7 - 10: 72.7% MACE over next 6 weeks - Early Invasive Strategies Allergies: Allergies: Allergies Coded Allergies Type Severity Reaction Last Updated Verified Sulfa (Sulfonamide Antibiotics) Allergy Intermediate hives 03/18/19 No Physical Exam: PE: Gen-well appearing, no acute distress Head- normocephalic/atraumatic ENT: atraumatic, oropharynx clear neck: Supple, full range of motion, strength, no rigidity, no JVD lungs: No distress, speaks in full sentences cardiovascular: Regular rate, no JVD, peripheral circulation intact in all extremities abdomen: atraumatic, nondistended musculoskeletal: Full range of motion and strength in all extremities, atraumatic, no limb swelling on either side in the lower extremities, cap refill all digits of left foot is less than 2 seconds skin: Intact, no rashes, the base of the left foot there is a wart like lesion, no crepitance, fluctuance or streaking, no swelling in the foot or ankle neurologic: Alert and oriented x4, no focal deficits psych: Normal mood and affect EKG: EKG: [] Radiology/Procedures: Radiology/Procedures: [] Course & Med Decision Making: Course & Med Decision Making Pertinent Labs and Imaging studies reviewed. (See chart for details) [] Patient presents to the emergency department with a case of cellulitis surrounding a small wartlike lesion, no signs of any drainable abscess, no signs of any neurovascular, tendon or ligamentous compromise, no indication for i maging, unlikely a DVT, Wells score is -2 and as an alternative diagnosis much more likely, I did advise her to follow-up with primary care if she would like the wart removed, she was requesting an antibiotic, more concerning was the patient's chart review of possible lung cancer, she denies any respiratory symptoms although I did advise her to follow-up very closely with primary care and podiatry, the meantime I will start her on some antibiotics Patient was seen in the ED for likely plantar warts and possible cellulitis, there is no apparent evidence of any emergency medical pathology at this time, patient was advised follow-up with their primary care provider /physician in the next 24-48 hours and to return to the ED before then if any new or worsening / concerning symptoms had developed. All questions and concerns were addressed at time of disposition I did advise her of the importance of getting follow-up screening for any possible lung cancer given that she does not have regular follow-up with primary care Lai Disclaimer: Lai Disclaimer: This electronic medical record was generated, in whole or in part, using a voice recognition dictation system. Departure Departure Impression: Primary Impression: Plantar wart of left foot Disposition: HOME / SELF CARE / HOMELESS Condition: GOOD Referrals: NO PCP (PCP) DEANNA SOLIS MD Patient Instructions: Plantar Warts, [id number], Warts Additional Instructions: I believe that you have a plantar wart, I will give you some antibiotics to be on the safe side but I do want you to follow-up with a primary care doctor and with a liner installer in the next 48 hours,. Return to the nearest emergency room before follow-up with any new or worsening/concerning symptoms develop Scripts Cephalexin (KEFLEX) 250 Mg Capsule 1 CAP PO QID, #28 CAP Prov: JOHN ROCKWELL MD 06/28/21 JOHN ROCKWELL MD Jun 28, 2021 00:35
== END 2021-06-28 00:47 | disposition home or self-care (01) ==
LOC: ER 21:48
DX: B07.0 Plantar wart (principal); Z98.84 Bariatric surgery status; Z88.2 Allergy status to sulfonamides
CPT/HCPCS: 99283